=== PATIENT | male | born 1975 | race Caucasian/White ===

== ENCOUNTER 2021-06-06 01:52 | Outpatient (CLI) | payer BC, SELFPAY ==
[2021-06-06 10:42] LABS: Lithium 0.9 mmol/l (0.6-1.2)
== END 2021-06-06 01:53 | disposition home or self-care (01) ==
PROVIDERS: Visit Provider Nurse Practitioner Women's Health
DX: F31.32 Bipolar disorder, current episode depressed, moderate (principal)
CPT/HCPCS: 36415; 80178

== ENCOUNTER 2021-11-29 03:00 | Outpatient (CLI) | payer BC, SELFPAY ==
[2021-11-29 12:35] LABS: Abs Immature Grans 0.06 10^3/uL (0.0-0.06); Absolute Basophil Count 0.03 10^3/uL (0.0-0.2); Absolute Eosinophil Count 0.14 10^3/uL (0.0-0.7); Absolute Lymphocyte Count 1.72 10^3/uL (1.2-3.4); Absolute Monocyte Count 0.53 10^3/uL (0.1-0.8); Absolute Neutrophil Count 4.09 10^3/uL (1.2-6.7); Basophils % 0.5; Eosinophils % 2.1; HCT 39.4 % (40.0-50.0); HGB 13.1 g/dL (13.5-17.5); Immature Grans % 0.9; Lymphocytes % 26.2; MCH 30.5 pg (27.0-33.0); MCHC 33.2 % (32.0-36.0); MCV 92 fL (80-95); MPV 11.7 fL (8.0-11.0); Monocytes % 8.1; Neutrophils % 62.2; Platelet Count 186 10^3/uL (130-400); RDW 13.3 % (11.8-14.1); RDW-SD 44.6 fL; WBC 6.57 10^3/uL (4.4-10.8)
[2021-11-29 12:50] LABS: ALT 43 U/L (16-63); AST 26 U/L (15-37); Albumin 3.9 g/dL (3.4-5.0); Alkaline Phosphatase 66 U/L (46-116); Anion Gap 7.5 mmol/L (3-11); BUN 10 mg/dL (7-18); Bilirubin, Direct 0.1 mg/dL (0.0-0.2); Bilirubin, Total 0.2 mg/dL (0.2-1.0); CO2 28.5 mmol/L (21.0-32.0); Calcium 9.1 mg/dL (8.5-10.1); Chloride 106 mmol/L (98-107); Glucose 133 mg/dL (74-106); Potassium 3.7 mmol/L (3.5-5.1); Sodium 142 mmol/L (136-145); Total Protein 7.2 g/dL (6.4-8.2)
== END 2021-11-29 03:01 | disposition home or self-care (01) ==
LOC: LOS 03:00
PROVIDERS: PCP Family Medicine; Visit Provider Nurse Practitioner Family
DX: R19.7 Diarrhea, unspecified (principal)
CPT/HCPCS: 36415; 80048; 80076; 85025

== ENCOUNTER 2021-11-30 15:12 | Outpatient (REF) | payer BC, SELFPAY ==
[2021-11-30 17:38] LABS: C Diff PCR Negative (Negative)
== END 2021-11-30 15:13 | disposition home or self-care (01) ==
LOC: LBN 15:12
PROVIDERS: PCP Family Medicine; Visit Provider Nurse Practitioner Family
DX: R19.7 Diarrhea, unspecified (principal)
CPT/HCPCS: 87493; 87177

== ENCOUNTER → 2021-12-07 00:56 | Outpatient (CLI) | payer BC, SELFPAY ==
--- OUTSIDE RECORDS SUMMARY | 2021-12-07 00:57 | XMS_ITS | Encounter Summary ---
:1975 Author Organization [facility] Address [address] [place] [address] Care Team Providers Name Role Phone Maximus Cabral MD Primary Care Provider [phone] Encounter Details Date Type Department Care Team Description 12/03/2019 Travel Social History Tobacco Use Types Packs/Day Years Used Date Current Every Day Smoker 0.5 Smokeless Tobacco: Never Used Comments: Vape Alcohol Use Standard Drinks/Week Comments No 0 (1 standard drink = 0.6 oz pure not cu rrently-recovering from alcohol) alcoholism Alcohol Habits Answer Date Recorded How often do you have a drink Not asked containing alcohol? How many drinks containing alcohol Not asked do you have on a typical day when you are drinking? How often do you have six or more Not asked drinks on one occasion? Comment: not currently-recovering from 08/02/2009 alcoholism Sex Assigned at Date Recorded Not on file documented as of this encounter Functional Status Cognitive Status Response Date of Assessment Because of a physical, mental, or emotional condition, do Ye s 08/03/2009 you have serious difficulty concentrating, remembering, or making decisions? (5 years old or older) documented as of this encounter Plan of Treatment Not on filedocumented as of this encounter Visit Diagnoses Not on filedocumented in this encounter Care Teams Principal Developer Relationship Specialty Start Date End Date Maximus Cabral MD PCP - General 07/26/14 documented as of this encounter
--- OUTSIDE RECORDS SUMMARY | 2021-12-07 00:57 | XMS_ITS | Encounter Summary ---
:1975 Author Organization [facility] Address [address] [place] [address] Care Team Providers Name Role Phone Maximus Cabral MD Primary Care Provider [phone] Encounter Details Date Type Department Care Team Description 12/05/2019 Travel Social History Tobacco Use Types Packs/Day [...] Assigned at Date Recorded Not on file COVID-19 Exposure Response Date Recorded In the last month, have you been in contact with No / Unsure 12/05/2019 19:36 EDT someone who was confirmed or suspected to have Coronavirus / COVID-19? documented as of this encounter Functional Status [...] on filedocumented in this encounter Care Teams Circuit Judge Relationship Specialty Start Date End Date Maximus Cabral MD PCP - General 07/26/14 documented as of this encounter
--- OUTSIDE RECORDS SUMMARY | 2021-12-07 00:57 | XMS_ITS | Encounter Summary ---
:1975 Author Organization [facility] Address [address] [place] [address] Care Team Providers Name Role Phone Maximus Cabral MD Primary Care Provider [phone] Encounter Details Date Type Department Care Team Description 08/18/2020 Immunization [facility] [address] [place], [place] [address] Social History Tobacco Use Types Packs/Day Years [...] Diagnoses Not on filedocumented in this encounter Orders Immunization/Injection Count Last Ordered Date First O rdered Date COVID-19 MRNA VACCINE (PFIZER COVID-19) PF 1 08/18 0.3 ML IM (16 YRS+) documented in this encounter Care Teams Gut Puller Relationship Specialty Start Date End Date Maximus Cabral MD PCP - General 07/26/14 documented as of this encounter
--- OUTSIDE RECORDS SUMMARY | 2021-12-07 00:57 | XMS_ITS | Encounter Summary ---
:1975 Author Organization [facility] Address [address] [place] [address] Care Team Providers Name Role Phone Maximus Cabral MD Primary Care Provider [phone] Encounter Details Date Type Department Care Team Description 08/16/2020 Lab Requisition [facility] Maximus Cabral Gene ralized hyperhidrosis; Pathology & MD Anay Cervicalgia Laboratory Medicine [address] [place] [address] [place] [phone] [id number] Social History Tobacco Use Types Packs/Day Years [...] or older) documented as of this encounter Discharge Disposition Disposition Code Departure Means Destination Home or Self Care documented in this encounter Plan of Treatment Not on filedocumented as of this encounter Procedures Procedure Name Priority Date/Time Associated Diagnosis Comme nts SPEP, INCLUDES Today 08/16/2020 15:41 Generalized Results f or this QUANTITATION OF EDT hyperhidrosis procedure are in MONOCLONAL SPIKE Cervicalgia the results PERFORMABLE section. C REACTIVE PROTEIN Routine 08/16/2020 15:41 Generalized Resul ts for this EDT hyperhidrosis procedure are in Cervicalgia the results section. SPEP, INCLUDES Routine 08/16/2020 15:41 Generalized Results f or this QUANTITATION OF EDT hyperhidrosis procedure are in MONOCLONAL SPIKE Cervicalgia the results section. PROTEIN, TOTAL Today 08/16/2020 15:41 Generalized EDT hyperhidrosis Cervicalgia documented in this encounter Results (ABNORMAL) SPEP, INCLUDES QUANTITATION OF MONOCLONAL SPIKE PERFORMABLE (08/16/2020 15:41 EDT) Albumin % 68.9 (H) 55.8 - 66.1 % [facility] Alpha-1 % 3.0 2.9 - 4.9 % [facility] Alpha-2 % 8.5 7.1 - 11.8 % [facility] Beta % 10.8 8.4 - 13.1 % [facility] Gamma % 8.8 (L) 11.1 - 18.8 % [facility] SPEP Comment No apparent [facility] monoclonal protein LABORATORY [facility] seen on serum electrophoresisComm ent: See scanned/supplementa ry report. Total Protein 7.2 6.3 - 8.2 g/dL [facility] Specimen Blood - Venous blood (substance) Narrative This result has an attachment that is no t available. Performing Organization Address City/State/ZIP Code Phon e Number [facility] [address] [place] [address] SERVICES PROTEIN, TOTAL (08/16/2020 15:41 EDT) Specimen Blood - Venous blood (substance) Performing Organization Address City/State/ZIP Code Phon e Number [facility] [address] [place] [address] SERVICES C REACTIVE PROTEIN (08/16/2020 15:41 EDT) Pathologist Sig nature C-Reactive Protein <7.0 <10.0 mg/L [facility] Specimen Blood - Venous blood (substance) Performing Organization Address City/State/ZIP Code Phon e Number [facility] [address] [place] [address] SERVICES documented in this encounter Visit Diagnoses Diagnosis Generalized hyperhidrosis Cervicalgia documented in this encounter Care Teams Sugar Presser Relationship Specialty Start Date End Date Maximus Cabral MD PCP - General 07/26/14 documented as of this encounter
--- OUTSIDE RECORDS SUMMARY | 2021-12-07 00:57 | XMS_ITS | Encounter Summary ---
:1975 Author Organization [facility] Address [address] [place] [address] Care Team Providers Name Role Phone Maximus Cabral MD Primary Care Provider [phone] Encounter Details Date Type Department Care Team Description 12/01/2021 Lab Requisition [facility] Outr Resulting Lab, Pathology & Laboratory Provider [facility] [address] [place], [place] [id number] Social History Tobacco Use Types Packs/Day Years [...] Name Priority Date/Time Associated Diagnosis Comme nts OVA/PARASITE EXAM Routine 11/30/2021 9:40 EDT Res ults for this procedure are i n the results section. documented in this encounter Results OVA/PARASITE EXAM (11/30/2021 9:40 EDT) Pathologist Sig nature Parasite No ova and parasites [facility] seen. LABORATORY SERVICES Specimen Feces - Specimen from rectum (specimen) Narrative [facility] - 12/03/2021 15:04 EDT (If Cryptosporidium, Cyclospora, or Micr osporidium are suspected, specific tests must be requested.) Single negative specimen does not rule out the possibility of a parasitic infection. Performing Organization Address City/State/ZIP Code Phon e Number [facility] [address] [place] [address] SERVICES documented in this encounter Visit Diagnoses Not on filedocumented in this encounter Care Teams Quality Control Inspector Heading Relationship Specialty Start Date End Date Maximus Cabral MD PCP - General 07/26/14 documented as of this encounter
--- OUTSIDE RECORDS SUMMARY | 2021-12-07 00:57 | XMS_ITS | Encounter Summary ---
:[address] [facility] Address [address] [place] [address] Care Team Providers Name Role Phone Maximus Cabral MD Primary Care Provider [phone] Reason for Visit Reason Comments Diarrhea Patient arrives to triage wi th c/o 3 weeks N/V/D. States that he has had watery stool for this period of time and admits to decrease in urination, PO intake, and weight loss. Saw PCP who recommended colonoscopy/endoscopy but is scheduled too far out. I just feel ill. No recent sick contacts, no recent ABX use. Family hx of celiacs. VSS in triage. Encounter Details Date Type Department Care Team Description 12/03/2017 Emergency [facility] ZanzacharyFreddie PA-C [address] [facility], [address] [place] [address] Gastroenteritis (Primary Emergency Department Carmen Ventura PA-C [address] [facility], [address] [place] [address] Dx) - [facility] Emergency, MD Latrice [address] [place] [address] Social History Tobacco Use Types Packs/Day Years [...] on file documented as of this encounter Last Filed Vital Signs Vital Sign Reading Time Taken Comments Blood Pressure 113/73 12/03/2017 2324 EDT Pulse 88 12/03/2017 2324 EDT Temperature 36.1 ??C (97 ??F) 12/03/2017 1524 EDT Respiratory Rate 19 12/03/2017 2324 EDT Oxygen Saturation 99% 12/03/2017 2324 EDT Inhaled Oxygen Concentration - - Weight 87.1 kg (192 lb) 12/03/2017 1524 EDT Height 180.3 cm (5' 11) 12/03/2017 1524 EDT Body Mass Index 26.78 12/03/2017 1524 EDT documented in this encounter Functional Status Cognitive Status Response Date of Assessment Because of a physical, mental, or emotional condition, do Ye s 08/03/2009 you have serious difficulty concentrating, remembering, or making decisions? (5 years old or older) documented as of this encounter Discharge Diagnoses Diagnosis K52.9 Noninfective gastroenteritis and c olitis, unspecified-K52.9[ICD-10-CM] R10.33 Periumbilical pain-R10.33[ICD-10- CM] R19.7 Diarrhea, unspecified-R19.7[ICD-10 -CM] R10.813 Right lower quadrant abdominal t enderness-R10.813[ICD-10-CM] R10.811 Right upper quadrant abdominal t enderness-R10.811[ICD-10-CM] R11.10 Vomiting, unspecified-R11.10[ICD- 10-CM] R42 Dizziness and giddiness-R42[ICD-10-C M] R53.83 Other fatigue-R53.83[ICD-10-CM] R51 Headache-R51[ICD-10-CM] F31.9 Bipolar disorder, unspecified-F31. 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 While you were in the ER you had labs that were all normal and reassuring. You also had a CT scan of your abdomen which had nonspecific findings of lymph nodes around your gut. These are nonspecific, may be inflammatory in nature, but nothing that indicates that you would be better off admitted to the hospital or would need surgical intervention at this time. I would recommend you to stick to clear liquid diet, bland diet as tolerated, and start taking an [id number] probiotic. Follow up with your PCP within a week, this may require referral to specialist such as a GI doctor. Come back to the ER if any new or concerning symptoms, or if you are not able to tolerate fluids, have significant decrease in urine output, or develop new/severe abdominal pain, or fevers. documented in this encounter Medications at Time of Discharge Medication Sig Dispensed Refills Start Date End Date azithromycin (ZITHROMAX) 250 Take 1-2 Tabs by 6 Tab 0 0 09/13/2016 mg tablet mouth SEE ADMIN INSTRUCTIONS. lithium carbonate 300 mg Take 1,200 mg by 0 tablet mouth daily. oxazepam (SERAX) 15 mg Take 15 mg by mouth 0 capsule 3 times daily. phenazopyridine (PYRIDIUM) Take 1 Tab by mouth 20 Tab 0 09/13/2016 200 mg tablet 3 times daily as needed for Pain. QUEtiapine (SEROQUEL) 100 mg Take 100 mg by 0 tablet mouth at bedtime. sertraline (ZOLOFT) 50 mg Take 150 mg by 0 tablet mouth daily. documented as of this encounter Discharge Disposition Disposition Code Departure Means Destination Home or Self Care Walk-out Home documented in this encounter ED Notes Carmen Dhillon PA-C - 12/03/20172038 EDT I, Salima Soriano, am scribing for Carmen Dhillon PA-C while he/she is personally performing the service. Salima Soriano 12/03/2017 20:39 Delroy Khan is a 42 y.o. male who presents to the ED with three weeks of acute onset diarrhea and vomiting, accompanied by lightheadedness and mental fogginess. Care and work-up prior to sign out includes labs and CT abdomen, pelvis with contrast orderd. I assumed care of patient from Edna Mclean with stool culture and CT abdomen/pelvis results pending. After I assumed care the patient had the following: Patient had a CT abdomen and pelvis with contrast, which was significant for innumerable nonenlargedmesenteric lymph nodes with subtle surrounding fat stranding are nonspecific but can be seen in setting of mesenteritis. There are otherwise no emergent findings in the abdomen and pelvis. Patient had CT that was obtained, reviewed, and interpreted by myself and discussed with a radiologist. Please see radiology report for further details. Reassuring lab and imaging results were shared with the patient who was advised that there was nothing emergent seen on his imaging. Patient was sent home with a stool collection kit to bring a stool sample back to the outpatient lab for further testing. Patient was advised to try some diet adjustmentand to follow up with his PCP in the next 1-2 weeks about his visit here and to consider speaking about getting a referral to see a normalizer. Patient was comfortable with plans to discharge and return home. This documentation is recorded by Salima Soriano acting as Scribe under the direction and presence of Carmen Dhillon PA-C. Carmen Dhillon PA-C: I personally performed the services recorded by the scribe in my presence. Iconfirm the scribe's documentation has been reviewed by me to accurately and completely record my work, treatment, procedures, and medical decision making. Dr. Del Rosario was available for supervision. Donovan Kline RN - 12/03/20171926 EDT Patient ambulatory gait steady and even to the bathroom, unable to provide a stool sample Edna Mclean PA - 12/03/2017 1823 EDT DOS: 12/03/2017 Chief Complaint Patient presents with ??? Diarrhea Patient arrives to triage with c/o 3 weeks N/V/D. States that he has had watery stool for this period of time and admits to decrease in urination, PO intake, and weight loss. Saw PCP who recommended colonoscopy/endoscopy but is scheduled too far out. I just feel ill. No recent sick contacts, no recent ABX use. Family hx of celiacs. VSS in triage. HPI The patient is a 42 y.o. male who presents today with Diarrhea (Patient arrives to triage with c/o 3weeks N/V/D. States that he has had watery stool for this period of time and admits to decrease in urination, PO intake, and weight loss. Saw PCP who recommended colonoscopy/endoscopy but is scheduledtoo far out. I just feel ill. No recent sick contacts, no recent ABX use. Family hx of celiacs. VSS in triage. ) HPI Mr. Khan is a 42 yo male accompanied by his teenage daughter with history significant for depression and bi-polar presenting to the ED for a subsequent encounter for acute onset diarrhea and vomiting x 3 weeks. He notes that he has episodes of explosive, watery diarrhea 10 times a day for the last three weeks. He has had new onset sensation of lightheadedness feeling mentally foggy. He notes 2 episodes of fecal incontinence, fatigue, the sensation of hsi body being heavy, chills, GARRIDO x 3 weeks(sharp, short pains). He also notes vomiting on a nightly basis. He said episodes start anywhere between 10pm and 2-3 am in the morning. He has associated excessive salvation in which he states that he is ac taully drooling prior to onset of vomiting. He states that episodes typically last around 20 minutes, have no association with timing of meals, are accompanied with stabbing abdominal pain and cramping. He will vomit regardless of PO intake and also experiences dry heaves. He endorses the feeling of both food and liquid feeling stuck in his chest. Whenever he eats of drinks, he has the sensation that it sits behind his breastbone for 20 minutes or so and then travels to his stomach where it feels stuck again for a similar amount of tie. He notes that he has a constant cramping pain in his inferior will-umbilical area that often generates stabbing radiating pain the the rest of his stomach, primarily to his right quadrant. He notes that he experiences extreme pain in his central abdomen when bending over while clothed with a belt on. He notes that his diarrhea is typically very watery, but occasionally has small floating pieces. He denies recent travel or consumption of non-potable water. He denies fever, CP, SOB, dyspnea, TATUM, myalgias, arthralgias, numbness or tingling in his extremities, visual changes, recent fall or trauma, rash, tick bites, animal exposure outside of his pet birds. Review of Systems Review of Systems See HPI The patient's past medical, family and social history was reviewed and updated as needed. No Known Allergies Vital Signs Temp: 36.1 ??C (97 ??F) Temp src: Temporal Pulse: 88 Heart Rate: 86 BPM Resp: 19 SpO2: 99 % BP: 113/73 BP MAP: 87 mm Hg BP Device: BP Machine Patient Position: Sitting BP Cuff Location: Left arm Gonzalez Agitation Sedation Scale: 0 O2 Device: None (Room air) Physical Exam Constitutional: He is oriented to person, place, and time. He appears well- developed and well-nourished. No distress (appears somewhat pale and fatigued). HENT: Head: Normocephalic and atraumatic. Neck: Normal range of motion. Neck supple. Cardiovascular: Normal rate, regular rhythm and normal heart sounds. Pulmonary/Chest: Effort normal and breath sounds normal. No respiratory distress. Abdominal: Soft. Bowel sounds are normal. He exhibits no distension. There is tenderness (in both RUQ and RLQ, -castano's ). Musculoskeletal: Normal range of motion. Neurological: He is alert and oriented to person, place, and time. He has normal reflexes. Skin: Skin is warm and dry. No erythema. Psychiatric: He has a normal mood and affect. His behavior is normal. Judgment and thought content normal. RESULTS EKG orders: None Radiology orders: CT ABDOMEN, PELVIS W CONTRAST Ordered, pending results ED Lab Results Labs Reviewed COMPREHENSIVE METABOLIC PANEL (CMP) - Abnormal Result Value Status Potassium 4.2 Final Sodium 142 Final Chloride 107 Final CO2 27 Final Total Alkaline Phosphatase 56 Final Bilirubin, Total <0.5 Final AST 22 Final ALT 27 Final Albumin 4.8 Final Total Protein 7.2 Final Creatinine 0.77 Final GFR, Calculated 114 Final BUN 7 (*) Final Calcium 9.7 Final Calculated Calcium 9.1 Final Glucose, Serum 91 Final Fasting? Unknown Final COMPLETE BLOOD COUNT AND DIFFERENTIAL - Abnormal WBC 5.77 Final RBC 4.52 Final Hemoglobin 13.4 (*) Final HCT 41.0 Final MCV 91 Final MCH 29.6 Final MCHC 32.7 (*) Final RDW-CV 13.0 Final RDW-SD 43.2 Final PLT 218 Final MPV 11.6 Final Neutrophils 63.8 Final Lymphocytes 26.0 Final Monocytes 7.1 Final Eosinophils 2.3 Final Basophils 0.5 Final Immature Grans 0.3 Final ABS Neutrophils 3.68 Final ABS Lymphs 1.50 Final ABS Monocytes 0.41 Final ABS Eosinophils 0.13 Final ABS Basophils 0.03 Final ABS Immature Grans 0.02 Final Type of Diff: Automated Final POCT URINE DIPSTICK, CLINITEK - Abnormal Color YELLOW Final Clarity, UA Clear Final Glucose Neg Final Bilirubin Neg Final Ketones Neg Final Specific [place] 1.010 Final Blood Neg Final pH 5.5 Final Protein Neg Final Urobilinogen 0.2 Final Nitrite Neg Final Leuk Esterase Trace (*) Final Tech ID [id number] Final FECAL BACTERIAL PATHOGENS BY PCR Salmonella PCR No Salmonella spp. DNA detected Final Shigella Final Value: No Shigella spp. or Enteroinvasive E.coli DNA detected. Campylobacter PCR Final Value: No Campylobacter spp. (jejuni or coli) DNA detected. Shiga Toxin PCR No Shiga toxin producing genes detected. Final C. DIFFICILE PCR Result Negative Final LIPASE Lipase 157 Final ED/URGENT CARE ADD-ON Tests to be added LITHIUM Final Number for problems [id number] (ED) Final LITHIUM [place] 0.8 Final Relevant Data Procedures ED COURSE A medical screening exam was performed. 1L IV normal saline ordered due to patient stated decreased PO intake and possible dehydration. 15 mg Ketorolac IV ordered for abdominal pain due to efficacy on last admission. CBC, CMP ordered due to possibility of infection and electrolyte imbalance from excessive fluid loss due to dehydration an diarrhea. His labs were reassuring that he was not having altered electrolytes due to excessive fluid loss from diarrhea and emesis. Stool cultures ordered to further clarify source of abdominal pain and distress. Patient was having difficulty producing stool. Noted his pain was well controlled with the Ketorolac and only had mild discomfort. Consulted with Dr Smith regarding next steps in treatment plans, pending results of stool cultures. He agreed that a CT abd/pelvis due to the length of Mr. Khan's illness and location of pain would be warranted pending discussion with the patient and Mr. Khan's wishes. I discussed the pros and cons of pursuing further imaging vs waiting on stool culture results. Mr. Khan decided to pursue the CT abd/pelvis. I ordered the imaging and then care of patient was transitioned to Luana Ventura PA-C at end of shift, pending stool sample collection and CTabd/pelvis results. ASSESSMENT AND PLAN Final diagnoses: Gastroenteritis PCP: Maximus Cabral MDM Number of Diagnoses or Management Options Diagnosis management comments: Gastroenteritis, Eusebio Del Rosario 12/08/2017 11:54 No flowsheet data found. Yany murphy - 12/03/2017 1820 EDT Blood drawn via saline lock per protocol, tiger and purple tube(s) sent to lab per order. Keiry Hanson RN - 12/03/2017 1601 EDT Pt not discharged and is in waiting room. documented in this encounter Plan of Treatment Not on filedocumented as of this encounter Procedures Procedure Name Priority Date/Time Associated Comments Diagnosis FECAL BACTERIAL Routine 12/04/2017 6:45 Results f or this PATHOGENS BY PCR EDT procedure a re in the results section. C. DIFFICILE PCR Routine 12/04/2017 6:45 Results for this EDT procedure are i n the results section. CT ABDOMEN, PELVIS W STAT 12/03/2017 21:06 Res ults for this CONTRAST EDT procedure are i n the results section. ED/URGENT CARE ADD-ON STAT 12/03/2017 19:10 Re sults for this EDT procedure are i n the results section. COMPLETE BLOOD COUNT STAT 12/03/2017 18:13 Res ults for this AND DIFFERENTIAL EDT procedure a re in the results section. LIPASE STAT 12/03/2017 18:13 Results for this EDT procedure are i n the results section. LITHIUM Routine 12/03/2017 18:13 Results for this EDT procedure are i n the results section. COMPREHENSIVE STAT 12/03/2017 18:13 Results fo r this METABOLIC PANEL (CMP) EDT proced ure are in the results section. POCT URINE DIPSTICK, STAT 12/03/2017 16:00 Res ults for this CLINITEK EDT procedure are i n the results section. documented in this encounter Results C. DIFFICILE PCR (12/04/2017 6:45 EDT) Pathologist Sig nature Result Negative [facility] Specimen Stool specimen (specimen) - Feces Performing Organization Address City/[facility] Phon e Number [facility] [address] [place] [address] SERVICES FECAL BACTERIAL PATHOGENS BY PCR (12/04/2017 6:45 EDT) Salmonella PCR No Salmonella spp. DNA [facility] detected [facility] Shigella No Shigella spp. or [facility] Enteroinvasive E.coli [facility] DNA detected. SERVICES Campylobacter PCR No Campylobacter spp. [facility] (jejuni or coli) DNA [facility] detected. SERVICES Shiga Toxin PCR No Shiga toxin [facility] producing genes [facility] detected. SERVICES Specimen Feces Performing Organization Address City/[facility] Phon e Number [facility] [address] [place] [address] ABDOMEN, PELVIS W CONTRAST (12/03/2017 21:06 EDT) Anatomical Region Laterality Modality Other Specimen Narrative [facility] - 12/04/2017 12:[address] ABDOMEN, PELVIS W CONTRAST ??12/03/2017 9:06 PM Signs and Symptoms/Comments: ?? Right quadrant Abd pain, N/V/D x 3wks Technique: CT of the abdomen and pelvis was perform ed following the administration intravenous contrast; cor onal and sagittal multiplanar reconstructions generated. Comparison: Lumbar spine MRI March 28, 2016 Findings: Lower chest: Trace atelectasis in the claudia ng bases. No significant abnormality of the heart. Hepatobiliary: No liver lesion. The gall bladder is contracted.. No bile duct dilatation. Spleen, pancreas, adrenal glands: No sig nificant abnormality. No pancreatic ductal dilatation, no peripan creatic fat stranding. Kidneys, ureters, bladder: Incidental ti ny right renal cortical cyst, axial 125. No hydronephrosis or ne phrolithiasis. The ureters are within normal limits. The bladder is decompressed. Apparent bladder wall thickening is likely due to decompression. Prostate, seminal vesicles: Numerous kevon cifications are seen in the prostate. No abnormality of the seminal vesicles. Bowel: No bowel wall thickening or obstr uction. A normal appendix is seen in the right lower quadrant. No abn ormal bowel enhancement. No significant diverticular disease. Peritoneal cavity / Subperitoneal space: No free fluid. No free air. Lymphovascular: Mild diffuse atheroscler otic calcification is noted. Numerous prominent but not pathologicall y enlarged lymph nodes are seen in the terminal mesentery. There is a small amount of surrounding haziness in the mesenteric f at, with well demarcated margin. Abdominal wall: There is a tiny fat-cont aining umbilical hernia and tiny bilateral fat-containing inguinal h ernias. Musculoskeletal: Mild degenerative chun es are present in the spine and hips. 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 Degenerative changes are se en along the pseudarthrosis. Impression: 1. ??No acute pathology abdomen pelvis. 2. ??Mild nonspecific mesenteritis. 3. ??Contracted/postprandial gallbladder . I have personally reviewed the images an d the above interpretation and agree with the findings. Procedure Note Keyshawn Rankin MD - 12/04/2017 CT ABDOMEN, PELVIS W CONTRAST 12/03/2017 9:06 PM Signs and Symptoms/Comments: Right quadrant Abd pain, N/V/D x 3wks Technique: CT of the abdomen and pelvis was perform ed following the administration intravenous contrast; cor onal and sagittal multiplanar reconstructions generated. Comparison: Lumbar spine MRI March 28, 2016 Findings: Lower chest: Trace atelectasis in the claudia ng bases. No significant abnormality of the heart. Hepatobiliary: No liver lesion. The gall bladder is contracted.. No bile duct dilatation. Spleen, pancreas, adrenal glands: No sig nificant abnormality. No pancreatic ductal dilatation, no peripan creatic fat stranding. Kidneys, ureters, bladder: Incidental ti ny right renal cortical cyst, axial 125. No hydronephrosis or ne phrolithiasis. The ureters are within normal limits. The bladder is decompressed. Apparent bladder wall thickening is likely due to decompression. Prostate, seminal vesicles: Numerous kevon cifications are seen in the prostate. No abnormality of the seminal vesicles. Bowel: No bowel wall thickening or obstr uction. A normal appendix is seen in the right lower quadrant. No abn ormal bowel enhancement. No significant diverticular disease. Peritoneal cavity / Subperitoneal space: No free fluid. No free air. Lymphovascular: Mild diffuse atheroscler otic calcification is noted. Numerous prominent but not pathologicall y enlarged lymph nodes are seen in the terminal mesentery. There is a small amount of surrounding haziness in the mesenteric f at, with well demarcated margin. Abdominal wall: There is a tiny fat-cont aining umbilical hernia and tiny bilateral fat-containing inguinal h ernias. Musculoskeletal: Mild degenerative chun es are present in the spine and hips. 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 Degenerative changes are se en along the pseudarthrosis. Impression: 1. No acute pathology abdomen pelvis. 2. Mild nonspecific mesenteritis. 3. Contracted/postprandial gallbladder. I have personally reviewed the images an d the above interpretation and agree with the findings. Performing Organization Address City/State/ZIP Code Phon e Number [facility] ED/URGENT CARE ADD-ON (12/03/2017 19:10 EDT) Pathologist Sig nature Tests to be added LITHIUM [facility] Number for problems [id number] (ED) [facility] Specimen Other Performing Organization Address City/State/ZIP Code Phon e Number [facility] [address] [place] [address] SERVICES LITHIUM (12/03/2017 18:13 EDT) Pathologist Sig nature [place] 0.8 0.6 - 1.2 mEq/L [facility] SERVICES Specimen Blood Performing Organization Address City/[facility]/ZIP Code Phon e Number [facility] [address] [place] [address] SERVICES (ABNORMAL) COMPLETE BLOOD COUNT AND DIFFERENTIAL (12/03/2017 18:13 EDT) Pathologist Sig nature WBC 5.77 4.0 - 10.4 [facility] K[facility] LABORATORY SERVICES RBC 4.52 4.36 - 5.78 [facility] M[facility] LABORATORY SERVICES Hemoglobin 13.4 (L) 13.8 - 17.3 [facility] gm/dl LABORATORY SERVICES HCT 41.0 39.5 - 50.2 % [facility] MCV 91 81 - 95 fl [facility] MCH 29.6 27.6 - 33.0 pg [facility] MCHC 32.7 (L) 32.8 - 36.4 [facility] gm/dl LABORATORY SERVICES RDW-CV 13.0 <14.2 % [facility] RDW-SD 43.2 <46.0 fl [facility] PLT 218 141 - 377 K/[facility] LABORATORY SERVICES MPV 11.6 9.5 - 12.7 fl [facility] Neutrophils 63.8 % [facility] Lymphocytes 26.0 % [facility] Monocytes 7.1 % [facility] Eosinophils 2.3 % [facility] Basophils 0.5 % [facility] Immature Grans 0.3 % [facility] ABS Neutrophils 3.68 2.20 - 8.85 [facility] K[facility] LABORATORY SERVICES ABS Lymphs 1.50 1.09 - 3.30 [facility] LABORATORY SERVICES ABS Monocytes 0.41 0.1 - 0.8 /[facility] LABORATORY SERVICES ABS Eosinophils 0.13 0.03 - 0.61 [facility] LABORATORY SERVICES ABS Basophils 0.03 0.01 - 0.11 [facility] LABORATORY SERVICES ABS Immature Grans 0.02 0 - 0.06 [facility] LABORATORY SERVICES Type of Diff: Automated [facility] Specimen Blood specimen (specimen) - Blood Performing Organization Address City/[facility]/ZIP Code Phon e Number [facility] [address] [place] [address] SERVICES LIPASE (12/03/2017 18:13 EDT) Pathologist Sig nature Lipase 157 <251 U/L [facility] Specimen Blood specimen (specimen) - Blood Performing Organization Address City/State/ZIP Code Phon e Number [facility] [facility] [address] [place] [address] SERVICES (ABNORMAL) COMPREHENSIVE METABOLIC PANEL (CMP) (12/03/2017 18:13 EDT) Potassium 4.2 3.5 - 5.0 [facility] MEDICAL mEq/L [facility] Sodium 142 136 - 145 [facility] mEq/L [facility] Chloride 107 96 - 110 [facility] mEq/L [facility] CO2 27 22 - 32 mEq/L [facility] Total Alkaline 56 38 - 126 U/L [facility] Phosphatase [facility] Bilirubin, Total <0.5 <1.4 mg/dl [facility] AST 22 15 - 46 U/L [facility] ALT 27 21 - 72 U/L [facility] Albumin 4.8 3.4 - 4.9 [facility] MEDICAL g/dl [facility] Total Protein 7.2 6.3 - 8.2 [facility] g/dl [facility] Creatinine 0.77 0.66 - 1.25 [facility] mg/dl [facility] GFR, Calculated 114 >60 [facility] Comment: ml/min/1.73m2 [facility] eGFR calculated using CKD-EPI equation for SERVICES non Americans. Multiply eGFR by 1.16 for Americans. BUN 7 (L) 10 - 26 mg/dl [facility] Calcium 9.7 8.5 - 10.5 [facility] mg/dl [facility] Calculated Calcium 9.1 8.5 - 10.5 [facility] mg/dl [facility] Glucose, Serum 91 70 - 100 [facility] mg/dl [facility] Fasting? Unknown [facility] Specimen Blood specimen (specimen) - Blood Performing Organization Address City/State/ZIP Code Phon e Number [facility] [address] [place] [address] SERVICES (ABNORMAL) POCT URINE DIPSTICK, CLINITEK (12/03/2017 16:00 EDT) Color YELLOW [facility] SERVICES Clarity, UA Clear [facility] Glucose Neg Neg [facility] Bilirubin Neg Neg [facility] Ketones Neg Neg [facility] SERVICES Specific [place] 1.010 1.001 - 1.035 [facility] SERVICES Blood Neg Neg [facility] SERVICES pH 5.5 4.6 - 8.0 [facility] SERVICES Protein Neg Neg [facility] SERVICES Urobilinogen 0.2 0.2 - 1.0 [facility] E.U./dl LABORATORY SERVICES Nitrite Neg Neg [facility] SERVICES Leuk Esterase Trace (A) Neg [facility] microbiology analyst ID [id number]: [facility] Test performed at LABORATORY Emergency SERVICES Department Specimen Urine (substance) - Urine Performing Organization Address City/State/ZIP Code Phon e Number [facility] [address] [place] [address] SERVICES documented in this encounter Visit Diagnoses Diagnosis Gastroenteritis - Primary Other and unspecified noninfectious rodri roenteritis and colitis documented in this encounter Administered Medications Inactive Administered Medications - up to 3 most recent administrations Medication Order MAR Action Action Date Dose Rate Site ketOROLAC (TORADOL) injection 15 mg Given 12/03/2017 18:22 EDT 15 mg 15 mg, intravenous, NOW X1, 1 dose, On Fri12/03/17 at 1815, STAT sodium chloride 0.9 % BOLUS 1,000 mL New Bag 12/03/2017 18:20 EDT 1,000 mL 1,000 mL, intravenous, NOW X1, 1 dose, On Fri12/03/17 at 1815, STAT documented in this encounter Active and Recently Administered Medications Times are shown in EDT. Scheduled Medication Order 12/01/2017 12/02/2017 12/03/2017 ketOROLAC (TORADOL) injection 15 mg (COMPLETED) 1821 (Given - Provider: Donovan Dyson RN) 15 mg, intravenous, NOW X1, 1 dose, Fri12/03/17 at 1815, STAT sodium chloride 0.9 % BOLUS 1,000 mL (COMPLETED) 182 (New Bag - Provider: Yany Hubbard)192 (Completed - Provider: Donovan Dyson RN) 1,000 mL, intravenous, NOW X1, 1 dose, Fri12/03/17 at 1815, STAT documented in this encounter Orders Nursing Count Last Ordered Date First Ordered Date INSERT PERIPHERAL IV 1 12/03/2017 documented in this encounter Care Teams Block Chopper Hand Relationship Specialty Start Date End Date Maximus Cabral MD PCP - General 07/26/14 documented as of this encounter
--- OUTSIDE RECORDS SUMMARY | 2021-12-07 00:57 | XMS_ITS | Encounter Summary ---
:1975 Author Organization [facility] Address [address] [place] [address] Care Team Providers Name Role Phone Maximus Cabral MD Primary Care Provider [phone] Encounter Details Date Type Department Care Team Description 09/08/2020 Immunization [facility] - T[facility]anie Mobil e Testing [address] [place], [place] [address] Social History Tobacco Use Types Packs/Day Years [...] COVID-19 MRNA VACCINE (PFIZER COVID-19) PF 1 09/08 0.3 ML IM (16 YRS+) documented in this encounter Care Teams Publicity Director Relationship Specialty Start Date End Date Maximus Cabral MD PCP - General 07/26/14 documented as of this encounter
--- OUTSIDE RECORDS SUMMARY | 2021-12-07 00:57 | XMS_ITS | Encounter Summary ---
:1975 Author Organization [facility] Address [address] [place] [address] Care Team Providers Name Role Phone Maximus Cabral MD Primary Care Provider [phone] Encounter Details Date Type Department Care Team Description 01/28/2018 Hospital Encounter [facility] - [facility] [place] Echevarria R, [facility] [id number] [place] [address] [phone] (Wo rk) Social History Tobacco Use Types Packs/Day Years [...] as of this encounter Discharge Diagnoses Diagnosis Z79.899 Other retirement (current) drug t herapy-Z79.899[ICD-10-CM] Z51.81 Encounter for therapeutic drug le ember monitoring-Z51.81[ICD-10-CM] documented in this encounter Medications at Time [...] on filedocumented in this encounter Care Teams Head Athletic Trainer Relationship Specialty Start Date End Date Maximus Cabral MD PCP - General 07/26/14 documented as of this encounter
--- OUTSIDE RECORDS SUMMARY | 2021-12-07 00:57 | XMS_ITS | Encounter Summary ---
:1975 Author Organization [facility] Address [address] [place] [address] Care Team Providers Name Role Phone Maximus Cabral MD Primary Care Provider [phone] Encounter Details Date Type Department Care Team Description 07/04/2020 Lab Requisition [facility] Kimberly Hess disorder, Pathology & Hina Sneed APRN unspecified Laboratory Medicine [address] [place] [address] [address] [place] [address] [place] [id number] Social History Tobacco Use Types Packs/Day Years [...] Name Priority Date/Time Associated Diagnosis Comme nts LITHIUM Routine 07/04/2020 12:40 EDT Bipolar disorder, Re sults for this unspecified (HCC-CMS) proced ure are in the results section. documented in this encounter Results LITHIUM (07/04/2020 12:40 EDT) [address] 1.3 See Note mEq/L [facility] Comment: LABORATORY SERVICES 18 years and older: Therapeutic range: 0.6 - 1.2 mEq/L Potentially toxic: >1.5 mEq/L Therapeutic range not established for individuals <18 years old. Specimen Blood - Venous blood (substance) Performing Organization Address City/State/ZIP Code Phon e Number [facility] [address] [place] [address] SERVICES documented in this encounter Visit Diagnoses Diagnosis Bipolar disorder, unspecified (HCC-CMS) ([facility]) Bipolar disorder, unspecified documented in this encounter Care Teams Manager Sign Relationship Specialty Start Date End Date Maximus Cabral MD PCP - General 07/26/14 documented as of this encounter
--- OUTSIDE RECORDS SUMMARY | 2021-12-07 00:57 | XMS_ITS | Encounter Summary ---
:1975 Author Organization [facility] Address [address] [place] [address] Care Team Providers Name Role Phone Maximus Cabral MD Primary Care Provider [phone] Encounter Details Date Type Department Care Team Description 12/04/2017 Phlebotomy Only [facility] - Maximus Cabral [facility] [address] [address] [address] [place] [id number] (Wo rk) Social History Tobacco Use Types [...] on filedocumented in this encounter Care Teams Technical Fellow Relationship Specialty Start Date End Date Maximus Cabral MD PCP - General 07/26/14 documented as of this encounter
--- OUTSIDE RECORDS SUMMARY | 2021-12-07 00:57 | XMS_ITS | Encounter Summary ---
:1975 Author Organization [facility] Address [address] [place] [address] Care Team Providers Name Role Phone Maximus Cabral MD Primary Care Provider [phone] Reason for Visit Reason Comments Suicidal Reports SI for about 1 wk an d states I just can't take it anymore. Plans to overdose. Denies self elaine m. Depressed affect; poor eye contact. Seen here for same about 10 yrs ago. A rrvies with supportive girlfriend. Encounter Details Date Type Department Care Team Description 12/05/2019 - Emergency [facility] Eve Collins PA-C [address] [place] [address] [address] [place] [address] Depression, unspecified depression type (Primary Dx); 12/06/2019 Emergency Department Domo Payne PA-C [address] [place] [address] [place] [id number] Suicidal ideation - [facility] Ada Sarmiento PA-C [address] [facility], [facility] 1 [place] [id number] [place] [id number] Social History Tobacco Use Types Packs/Day Years [...] / COVID-19? documented as of this encounter Last Filed Vital Signs Vital Sign Reading Time Taken Comments Blood Pressure 105/73 12/06/2019 0900 EDT Pulse 80 12/06/2019 09 EDT Temperature 36.1 ??C (97 ??F) 12/06/2019 09 EDT Respiratory Rate 18 12/05/20191935 EDT Oxygen Saturation 98% 12/06/2019 09 EDT Inhaled Oxygen Concentration - - Weight 83.5 kg (184 lb) 12/05/20191935 EDT Height 180.3 cm (5' 11) 12/05/2019 193 EDT Body Mass Index 25.66 12/05/2019 193 EDT documented in this encounter Functional Status Cognitive Status Response Date of Assessment Because of a physical, mental, or emotional condition, do Ye s 08/03/2009 you have serious difficulty concentrating, remembering, or making decisions? (5 years old or older) documented as of this encounter Medications at Time of Discharge Medication Sig Dispensed Refills Start Date End Date azithromycin (ZITHROMAX) Take 1-2 Tabs by 6 Tab 0 09/13 250 mg tablet mouth SEE ADMIN INSTRUCTIONS. latanoprost (XALATAN) 0.005 Place 1 Drop into 0 % ophthalmic solution both eyes daily. lithium carbonate 300 mg Take 1,200 mg by 0 tablet mouth daily. lurasidone (LATUDA) 60 mg Take 60 mg by 0 tablet mouth daily. oxazepam (SERAX) 15 mg Take 15 mg by 0 capsule mouth 3 times daily. phenazopyridine (PYRIDIUM) Take 1 Tab by 20 Tab 0 2016 200 mg tablet mouth 3 times daily as needed for Pain. QUEtiapine (SEROQUEL) 100 Take 50 mg by 0 mg tablet mouth daily with lunch. QUEtiapine (SEROQUEL) 100 Take 100 mg by 0 mg tablet mouth at bedtime. sertraline (ZOLOFT) 50 mg Take 150 mg by 0 tablet mouth daily. lurasidone (LATUDA) 20 mg Take 1 Tab by 7 Tab 0 020 12/13/2019 tablet mouth at bedtime for 7 days. Total of 80mg qhs documented as of this encounter Ordered Prescriptions Prescription Sig Dispensed Refills Start Date End Date lurasidone (LATUDA) 20 mg Take 1 Tab by mouth 7 Tab 0 0 12/06/2019 12/13/2019 tablet at bedtime for 7 days. Total of 80mg qhs documented in this encounter Discharge Disposition Disposition Code Departure Means Destination Home or Self [facility] documented in this encounter ED Notes Ada Sarmiento PA-C - 12/06/2019 1352 EDT Received signout from RINA Payne at 6 AM. Patient seen by first call and psychiatry and cleared for discharge. Provided prescription for Latuda 20 mg nightly, to be taken in addition to a 60 mg nightly for total of 80 mg nightly for 1 week and has outpatient provider set up. Genny Alcazar RN - 12/06/2019 1349 EDT Pt verbalized understanding Of discharge instructions, all belongings returned to pt. Genny Alcazar RN - 12/06/2019 1319 EDT Pt has declined to go to [facility]. Dr Perez has spoken with pt and is aware. Elizabeth Marte - 12/06/2019 1040 EDT 12 Lead EKG Performed by ELIZABETH ALLEN and shown to Ada Sarmiento PA-C. Eleonora arita - 12/06/2019 1030 EDT Blood drawn via butterfly needle per protocol, tiger tube(s) sent to lab per order. Genny Hirsch, KATELYN - 12/06/2019 0945 EDT Pt is cooperative, stated he may feel a little better today. Denies any s/i at this time.pt statedhe does not take Seroquel until noon. Yesica Mondragon RN - 12/05/20192027 EDT Pt sitting comfortably on stretcher w girlfriend at his side. Pt has a flat affect but able to articulate his feelings without difficulty. Pt states he has 'a lot of medications at home that he would take kill himself by way of OD'. Pt states he 'does not feel anymore; has no feelings'. Pt his lack ofdesire to live has increased greatly since Friday. Pt states he 'wants to kill himself but can't do it'. Pt could not specify exactly what caused his sudden SI but likely will open up when girlfriend is asked to leave the room. Girlfriend appears to be very supportive although is quiet during assessment process. Girlfriend is not living w patient at this time but sounds as though this may be a temporary thing. Pt lives w 17 year old daughter who is typically not home. Pt states he does not feel safein his house because of his temptation to OD. Yanelis Jimenez PA- C - 12/05/2019 194 EDT DOS: 12/05/2019 Chief Complaint Patient presents with ??? Suicidal Reports SI for about 1 wk and states I just can't take it anymore. Plans to overdose. Denies selfharm. Depressed affect; poor eye contact. Seen here for same about 10 yrs ago. Arrvies with supportive girlfriend. HPI The patient is a 44 y.o. male who presents today with Suicidal (Reports SI for about 1 wk and statesI just can't take it anymore. Plans to overdose. Denies self harm. Depressed affect; poor eye contact. Seen here for same about 10 yrs ago. Arrvies with supportive girlfriend. ) HPI 44-year-old male presenting today with his partner. Male reporting suicidal ideations. Plan is for overdose. Denies self-harm at this time. Has a depressed affect with poor eye contact. Denies any medical complaints today. Review of Systems Review of Systems Constitutional: Negative for chills and diaphoresis. HENT: Negative for facial swelling and voice change. Eyes: Negative for redness. Respiratory: Negative for choking, shortness of breath and wheezing. Cardiovascular: Negative for chest pain and palpitations. Gastrointestinal: Negative for abdominal pain. Musculoskeletal: Negative for back pain. Skin: Negative for color change and pallor. Neurological: Negative for facial asymmetry and speech difficulty. Psychiatric/Behavioral: Positive for suicidal ideas. Negative for agitation and confusion. The patient is not nervous/anxious. The patient???s past medical, family, and social history was reviewed and updated as needed. No Known Allergies Vital Signs Temp: 36.9 ??C (98.4 ??F) Temp src: Temporal Pulse: 87 Resp: 18 SpO2: 99 % BP: (!) 145/72 BP Device: BP Machine BP Patient Position: Sitting BP Cuff Location: Right arm O2 Device: None (Room air) Physical Exam Constitutional: General: He is not in acute distress. Appearance: He is well-developed. He is not diaphoretic. HENT: Head: Normocephalic and atraumatic. Neck: Musculoskeletal: Normal range of motion and neck supple. Cardiovascular: Rate and Rhythm: Normal rate and regular rhythm. Pulmonary: Effort: Pulmonary effort is normal. Skin: General: Skin is warm and dry. Neurological: Mental Status: He is alert and oriented to person, place, and time. Psychiatric: Mood and Affect: Mood is depressed. Behavior: Behavior normal. Thought Content: Thought content includes suicidal ideation. Thought content includes suicidal plan. Cognition and Memory: Cognition normal. Judgment: Judgment normal. Judgment is not impulsive or inappropriate. Procedures ED COURSE A medical screening exam was performed. First call paged initially at 1941. Awaiting callback. Callback at 1944 from [facility]. They will evaluate. Evaluated the patient there is no concern for medical complaints today. Patient is here for suicidalideations. Crisis has been consulted. 2122: CRISIS feels patient will require inpatient treatment, referring for Psychiatry to see. Psychiatry has evaluated the patient and feels that he meets inpatient criteria. Patient was signed out to cleve FLYNN. Final diagnoses: None DISPOSITION: No disposition on file PCP: Maximus Cabral MDM Valencia Jones 12/05/2019 19:41 No flowsheet data found. eyshawn García RN - 12/05/2019 1938 EDT TCALL: JESUSITA TONG 79, REF BY GANESH AT FIRST [facility], SI, ANXIETY, DEPRESSION (CJZ) documented in this encounter Miscellaneous Notes ED Consult - Shelbie Perez-MD Aarti - 12/05/20198 EDT [facility] Emergency Department Emergency Psychiatry Assessment Reason for consult: Psychiatric evaluation SUBJECTIVE Jesusita Tong is a 44 y.o. male who presents to the emergency department with cc of I cannot stop thinking about wanting to kill myself. Mr. Tong reports a history of bipolar 2 disorder that was diagnosed with approximately 10 years ago during an inpatient hospitalization on [facility]. Hereports that 3 weeks ago he had been doing very well. He reports that he felt like he was being anawesome father, he was taking on more responsibilities in many aspects of his life, and was better able to keep his house clean. He reports that during that time he needed less sleep and felt somewhat euphoric. He reports after week of that he had approximately 3 to 5 days during which he felt euthymic, followed by a week of acute suicidal ideation. He reports that he has not felt as anxious nor depressed as he has during previous depressive episodes, but does feel significantly more suicidal than on previous occasions. He states that he feels very empty and emotionless but reports that he doesnot feel sad or anxious necessarily. He reports that he has been having significant decreased concent ration while at work. He reports that he is getting 4 to 5 hours of sleep at night and though he feels emotionally exhausted, he does not feel as physically tired reporting again that he feels mostly empty. He denies any acute triggers, and denies increased life stressors. Jesusita reports that he has been having intrusive and ruminative thoughts about suicide, he has had some decrease in sadness but not significantly, he has decreased interest in doing just about anything, he feels extreme guilt especially in relation to his suicidal thoughts especially as the relate tohis daughters. He reports that he has some decreased energy, but mostly just decreased motivation. He reports that he is doing poorly at work due to his acute decreased concentration. He reports that his appetite is somewhat decreased. He denies feeling anxious about the future other than he does worry about an inpatient hospitalization as it would prevent him from fulfilling his responsibilities, but also recognizes that he has not been able to fill his responsibilities due to his ongoing suicidal thoughts. He reports that he only reason he has not killed himself yet was because of his obligation to his daughters. He reports that he is unable to break the cycle of thinking about suicide and knowing that he is unable to commit suicide due to this previously stated obligation to family members. Psychiatric Review of Systems: ?? Psychotic: none endorsed or evident ?? Suicidal/violent: active suicidal ideation and suicide plan Overdose on medications including lithium. ?? Sleep: belt changer awakening ?? Appetite: Decreased appetite General Review of Systems: A complete 13 point review of systems completed, all negative except as marked below Pos ROS Constitutional Eyes Ears, nose, throat Cardiovascular Respiratory Gastrointestinal Genitourinary Musculoskeletal Integumentary Neurological Endocrine Hematologic Allergic HISTORY: Past Medical History: Diagnosis Date ??? Psychiatric problem depression, ?bipolar Psychiatric History: Past hospitalizations: Yes: 1 Prior suicide attempts: Yes: Last attempt: 1999 via Overdose Prior violence: Denies Current provider/s: Yes, Augustus Echevarria Current medications: Seroquel 100 mg nightly, 50 mg at lunch, Latuda 60 mg nightly, lithium 1200 mg nightly Family psychiatric history: Denies Social History: Marital status: Occupation / income: employed full-time Living arrangements: with children half of the time Legal history: none, Abuse History: - Psychological: none endorsed - Physical: none endorsed - Sexual: none endorsed Substance Use History: Vaping history, reports equivalent greater than 1 pack/day nicotine equivalent. Denies alcohol use, denies illicit substance use Legal consequences of substance/alcohol use: No History of substance/alcohol abuse treatment: No Readiness for substance/alcohol abuse treatment, if applicable: maintenance OBJECTIVE No Known Allergies BP (!) 145/72 (BP Cuff Location: Right arm, BP Patient Position: Sitting) Pulse 87 Temp 36.9 ??C(98.4 ??F) (Temporal) Resp 18 Ht 180.3 cm (71) Wt 83.5 kg (184 lb) SpO2 99% BMI 25.66 kg/m?? Mental Status Examination: Appearance: 44 y.o. man, casually dressed, well groomed Behavior: withdrawn, poor eye contact, decreased psychomotor activity, normal tone and normal bulk Speech: well-articulated, fluent, slowed and quiet speech, normal spontaneity Mood: flat Affect: congruent with mood Perceptions: no perceptual disturbances Thought process: Perseverative Associations: tight Thought content: hopelessness, worthlessness, excessive guilt and excessive preoccupations, active suicidal ideation Sensorium: alert Orientation: to person, place, time and situation Attention: grossly intact Memory: grossly intact Language: is normal and shows no deficits 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 male with history detailed above. He is having intrusive and ruminative thoughts about suicide. He reports that he is only not committed suicide due to obligations to his family. He worries that if he goes home that he will act on his suicidal thoughts despite protective factors. He may likelybe in a bipolar depression following a recent hypomanic episode. He reports that in some ways this is a different experience than previous depressive episodes marked by less depression and more apathy.He reports that he cannot remember a time in recent history that he was the suicidal. He would likely benefit from inpatient hospitalization, he is a clear and present danger to himself and would likely meet criteria for an involuntary hold, however he is currently voluntary for admission. DIAGNOSIS: Depressive episode unspecified History of bipolar 2 disorder PLAN: 1. Continue 1:1 observation 2. Patient is voluntary for psychiatric admission 3. Continue DOCUMENT CONTROL CLERK medications as listed above 4. in the event of a psychiatric emergency: Haloperidol 5 mg and Lorazepam 2 mg to be offered PO unless patient is an acute danger to themselves/other in which case this should be given IM x1. If emergency medications are given please notify the psychiatrist electronic wirer for the ED. Above assessment and plan discussed with psychiatry attending, Dr. Aguilar. Rommel Lovell M.D. PGY1 Psychiatry Pager # [phone] I've seen and examined the patient on 12/06/2019. I agree with the resident's documented assessment and plan with the following exceptions/additions: On exam Jesusita is calm and cooperative, mood is clearly improving. He states that unfortunately thesedips in mood occur approx 1 time/year if not more. They typically last 1 week and rarely more. He felt that this episode was more intense that his typical, however today he feels the same as prior episodes when he has come out of the episode in the past. He states that he is still sad but no longer feels empty. He is encouraged by the fact that his daughter hugged him prior to him coming in to the hospital and feels very supported by both of his daughters. He is very confident that his mood will continue to improve as he is used to this pattern of feelings. He denies any suicidal ideation at this point and is adamant that he feels fully safe. He was offered a bed a [place] however he declines this as his mood is improving and he feels it would be more beneficial for him to be at home with hisfamily. He is amenable to increasing his latuda to 80mg at night (for further prophylaxis against depressive episodes) and following up with his psychiatrist this week. DX: Bipolar II disorder, current episode depressed PLAN: Pt does not meet criteria for EE and may discharge of his own volition Rec to provide 1 week of 20mg latuda to be taken with 60mg Thank you for the consultation on this patient. Odalis Perez M.D. Emergency Psychiatry Attending Pager: [phone] D Consult - Teofilo Cabrera - 12/05/2019 9476 EDT [employer] Initial Assessment Note Admit Date: 12/05/2019 Date of Consult: 12/05/2019 Suicidal Presenting Information: Hina is a 44 yr old male, known to the through recent crisis assessment, presenting for assessment at the [facility] ED due to concerns of SI. Hina reports his SI has worsened over the past week, and was assessed three days ago via telehealth. At that time, it was determined hina couldbe supported on an outpatient basis with a safety plan, phone checks, AA meetings, family support, and a therapy referral. Hina states his condition has worsened and he no longer feels safe at his home due to his temptation to overdose. Hina has one prior inpatient psychiatric hospitalization 10 yrs ago on [facility] due to mood symptoms. Hina is currently treated by his PCP, Dr. Cabral, and his psychiatrist, Augustus Echevarria at [facility]. He states he is compliant with his lithium, seroquel, and latuda. Upon interview, hina is easily engaged but with notably flat affect. He clearly states his suicidal thoughts and appears a good historian. What is unclear to hina, and this typewriters functional tester, is what precipitated this episode of suicidality. The only potential change noted by this typewriters functional tester is that hina's partner was away for 3.5 wks, returning shortly after ct's worsening mental state began. Of note, hina's prior inpatient episode was precipitated by relational issues. Nevertheless, hina and his partner do not indicate relational issues and do not correlate the partner's absence with ct's onset of SI. Hina states that up until this past week, he was actually doing quite well with his mental health. Please see risk sectionbelow for details of suicide risk assessment. Substance Use (if applicable): Hina denies recent use but has a hx of alcoholism. Relevant Psychosocial Information: Hina lives with his 17 yr old daughter and 50% of the time his 15 yr old daughter lives there as well. He has a partner, Mitali, who does not live with him. He works fulltime. Mental Status Appearance: Well groomed Attitude: Cooperative Behavior: No Distubance Noted Normal Rate / Rhythm / Tone Mood: Sad Sleep Pattern: No Disturbance Noted Appetite: No Disturbance Noted Affect: Flat Thought Process: Clear, Coherent, Organized and Goal-Directed Perception: No Disturbance Noted Cognitions: Alert and Oriented Insight: Fair Judgement: Fair Concentration: Good Orientation: Oriented times three Risk Assessment Suicidality: Ct endorses current SI with thoughts to OD on the pills he has access to at his home. Ct has attempted suicide once in his life, around age 22, via overdose ingestion of pills, requiring medical intervention. He denies a hx of self-harm. He does note periodic episodes of SI. His current episode has worsened over the course of the past week. He endorses thoughts such as I just want to and I feel like I'm losing control and everyone around me would be better off if I was . Homicidality: Ct denies HI. Clinical Interpretation: Hina is a 44 yr old male who presented for assessment due to concerns of SI. While the etiology of ct's onset of acute SI is unclear, he does not appear safe to return home and would likely benefit from inpatient psychiatric treatment for the purposes of stabilization, medication evaluation, and developing insight into his episodes of suicidality and tools to manage these issues moving forward. Ct is willing to be referred out to other hospitals within the critical access hospital. Plan: The plan for this patient is: [facility] [place] [facility], [facility], [facility] Consultation with: Dr. Nas Cabrera [employer] [facility] documented in this encounter Plan of Treatment Not on filedocumented as of this encounter Procedures Procedure Name Priority Date/Time Associated Diagnosis Comme nts ECG REPORT - 12/20/2019 10:33 SCANNED EDT ECG REPORT - 12/10/2019 15:48 SCANNED EDT DRUG SCREEN 11, STAT 12/06/2019 11:48 Results for this URINE EDT procedure are i n the results section. EKG 12-LEAD STAT 12/06/2019 10:30 Results for this EDT procedure are i n the results section. TSH STAT 12/06/2019 10:25 Results for this EDT procedure are i n the results section. LITHIUM STAT 12/06/2019 10:25 Results for this EDT procedure are i n the results section. EKG 12-LEAD STAT 12/06/2019 10:17 Results for this EDT procedure are i n the results section. COVID-19 TEST [facility] STAT 12/06/2019 0:02 EDT LAB PCR COVID-19 TESTING STAT 12/06/2019 0:02 EDT Resu lts for this procedure are i n the results section. documented in this encounter Results DRUG SCREEN 11, URINE (12/06/2019 11:48 EDT) Amphetamine Screen, Negative Screen Negative, [facility] Ur Comment: Negative CENTER Confirmation testing available upon request. Screen LABORATORY Suitable for medical purposes only. SERVI MARTI Will not detect all drugs within class. Cutoff = 500 ng/mL Barbiturates Screen, Negative Screen Negative, [facility] Ur Comment: Negative CENTER Confirmation testing available upon request. Screen LABORATORY Suitable for medical purposes only. SERVI MARTI Will not detect all drugs within class. Cutoff = 200 ng/mL Benzodiazepine Negative Screen Negative, [facility] Screen, Ur Comment: Negative CENTER Confirmation testing available upon request. Screen LABORATORY Suitable for medical purposes only. SERVI MARTI Will not detect all drugs within class. Cutoff = 150 ng/mL Buprenorphine and Negative Screen Negative, [facility] Metabolites Screen, Comment: Negative CENTER Ur Confirmation testing available upon request. Screen LABORATORY Suitable for medical purposes only. SERVI MARTI Will not detect all drugs within class. Cutoff = 10 ng/mL Cannabinoids Screen, Negative Screen Negative, [facility] Ur Comment: Negative CENTER Confirmation testing available upon request. Screen LABORATORY Suitable for medical purposes only. SERVI MARTI Will not detect all drugs within class. Cutoff = 50 ng/mL Cocaine Metabolites Negative Screen Negative, [facility] Screen, Ur Comment: Negative CENTER Confirmation testing available upon request. Screen LABORATORY Suitable for medical purposes only. SERVI MARTI Will not detect all drugs within class. Cutoff = 150 ng/mL Methadone Screen, Ur Negative Screen Negative, [facility] Comment: Negative CENTER Confirmation testing available upon request. Screen LABORATORY Suitable for medical purposes only. SERVI MARTI Will not detect all drugs within class. Cutoff = 200 ng/mL Methamphetamine Negative Screen Negative, [facility] Screen, Ur Comment: Negative CENTER Confirmation testing available upon request. Screen LABORATORY Suitable for medical purposes only. SERVI MARTI Will not detect all drugs within class. Cutoff = 500 ng/mL Opiates Screen, Ur Negative Screen Negative, [facility] Comment: Negative CENTER Confirmation testing available upon request. Screen LABORATORY Suitable for medical purposes only. SERVI MARTI Will not detect all drugs within class. Cutoff = 100 ng/mL Oxycodone Screen, Ur Negative Screen Negative, [facility] Comment: Negative CENTER Confirmation testing available upon request. Screen LABORATORY Suitable for medical purposes only. SERVI MARTI Will not detect all drugs within class. Cutoff = 100 ng/mL Propoxyphene Screen, Negative Screen Negative, [facility] Comment: Negative CENTER Confirmation testing available upon request. Screen LABORATORY Suitable for medical purposes only. SERVI MARTI Will not detect all drugs within class. Cutoff = 300 ng/mL Specimen Urine - Urine (substance) Performing Organization Address City/State/ZIP Code Phon e Number [facility] [address] [place] [address] SERVICES EKG 12-LEAD (12/06/2019 10:30 EDT) Specimen Narrative [facility] EKG - 12/10/2019 15:4 5 EDT ?[facility] Emergency ? Test Date: ?2019-12-06 Pat Name: ? JESUSITA TONG ?Department: ?? ED ? Room: ? GT28 Gender: ? Male ? Concrete Bucket Hooker: ?? [id number] : ?1975 ? Requested By: RICCO Frazier Order Number: [id number] ? Shon GONZALEZ: ?? EDUARDO CHAUHAN MD PhD ? Measurements Intervals ?[place] ? Rate: ? 71 ? P: ?68 WV: ? 202 ?QRS: ?31 QRSD: ? 106 ?T: ?43 QT: ? 397 ? QTc: ?432 ? Interpretive Statements Normal sinus rhythm Compared with prior tracing, less artifa ct on the [facility] tracing Edited by JEFF GARCIA MD on 12-07 16:36:52 EDT. I reviewed the tracing and have either a greed or edited the findings in this report. Electronically Signed On 0 15:45:04 EDT by EDUARDO CHAUHAN MD PhD. Procedure Note Eduardo Chauhan MD - [address] [facility] Test Date: 2019-12-06 Pat Name: JESUSITA TONG Department: ED Room: 28 Gender: Male Concrete Bucket Hooker: [id number] : 1975 Requested By: RICCO Frazier Order Number: [id number] Reading MD: Jace CHAUHAN MD PhD Measurements Intervals [place] Rate: 71 P: 68 WV: 202 QRS: 31 QRSD: 106 T: 43 QT: 397 QTc: 432 Interpretive Statements Normal sinus rhythm Compared with prior tracing, less artifa ct on the [facility] tracing Edited by JEFF GARCIA MD on 12-07 16:36:52 EDT. I reviewed the tracing and have either a greed or edited the findings in this report. Electronically Signed On 0 15:45:04 EDT by EDUARDO CHAUHAN MD PhD. Performing Organization Address [facility] e Number [facility] EKG LITHIUM (12/06/2019 10:25 EDT) [place] 1.0 See Note mEq/L [facility] Comment: LABORATORY SERVICES Therapeutic Range for [place]: 18 years and older: ??0.6 - 1.2 mEq/L Therapeutic range not established for individuals <18 years old. Specimen Blood - Venous blood (substance) Performing Organization Address [facility] e Number [facility] [address] [place] [address] SERVICES TSH (12/06/2019 10:25 EDT) Pathologist Sig nature [place] 1.29 0.47 - 4.68 uIU/mL [facility] SERVICES Specimen Blood - Venous blood (substance) Narrative [facility] SERVICES - 12/06/2019 11:27 EDT The results of this assay can be falsely lowered due to the consumption of Biotin. Performing Organization Address [facility] Phon e Number [facility] [address] [place] [address] SERVICES EKG 12-LEAD (12/06/2019 10:17 EDT) Specimen Narrative [facility] EKG - 12/20/2019 10:2 7 EDT ?[facility] Emergency ? Test Date: ?2019-12-06 Pat Name: ? JESUSITA TONG ?Department: ?? ED ? Room: ? GT28 Gender: ? Male ? Concrete Bucket Hooker: ?? [id number] : ?1975 ? Requested By: RICCO Frazier Order Number: [id number] ? Reading MD: ?? ALVARO MOTA MD ? Measurements Intervals ?[place] ? Rate: ? 76 ? P: ?71 WV: ? 195 ?QRS: ?32 QRSD: ? 97 ? T: ?52 QT: ? 392 ? QTc: ?441 ? Interpretive Statements SINUS RHYTHM Poor data quality limiting interpretatio n nonspecific ST-T wave abnormalities ??Edited by JEFF GARCIA MD on 12-08-2019 16:35:12 EDT. I reviewed the tracing and have either a greed or edited the findings in this report. Electronically Signed On 12-20-19 10:27:05 EDT by ALVARO MOTA MD. Procedure Note Alvaro Mota MD - 12/20/2019 [facility] Test Date: 2019-12-06 Pat Name: JESUSITA TONG Department: ED Room: [facility] Gender: Male Concrete Bucket Hooker: [id number] : 1975 Requested By: RICCO Frazier Order Number: [id number] Shon MD: Naren MOTA MD Measurements Intervals [place] Rate: 76 P: 71 WV: 195 QRS: 32 QRSD: 97 T: 52 QT: 392 QTc: 441 Interpretive Statements SINUS RHYTHM Poor data quality limiting interpretatio n nonspecific ST-T wave abnormalities Edited by JEFF GARCIA MD on 12-08-2019 16:35:12 EDT. I reviewed the tracing and have either a greed or edited the findings in this report. Electronically Signed On 12-20-19 10:27:05 EDT by ALVARO MOTA MD. Performing Organization Address City/[facility]/ZIP Code Phon e Number [facility] EKG COVID-19 TEST [facility] PCR (12/06/2019 0:02 EDT) Specimen Swab - Entire nasopharynx (body structur e) Performing Organization Address [facility]/ZIP Code Phon e Number [facility] [address] [place] [address] SERVICES COVID-19 TESTING (12/06/2019 0:02 EDT) COVID-19 rt-PCR Negative Negative [facility] Result Comment: CENTER LABORATORY This test has not been FDA c leared or approved. This test has been authorized by FDA under an EUA for use by authorized laboratories. This test has been authorized only for detection of nucleic acid fro SERVICES m 2019-nCoV, not for any oth er viruses or pathogens. This test is only authorized for the duration of the declaration that circumstances exist justifying the authorization of emergency use of in vitro d iagnostic tests for detectio n and/or diagnosis of 2019-nCoV under section 564(b)(1) of Act, 21 U.S.C ?? 360bbb-3(b) (1), unless the authorization is terminated or revoked sooner. Negative results do not prec lude 2019-nCoV infection and should not be used as the sole basis for treatment or other patient management decisions. Negative results must be combined with clinical observa tions, patient history, and epidemiological informatio n. Performed on the [employer] GeneXpert Instrument Performing Lab GeneXpert [facility] Lab [facility] SERVICES Specimen Swab - Entire nasopharynx (body structur e) Performing Organization Address City/State/ZIP Code Phon e Number [facility] [address] [place] [address] SERVICES documented in this encounter Visit Diagnoses Diagnosis Depression, unspecified depression type - Primary Suicidal ideation documented in this encounter Administered Medications Inactive Administered Medications - up to 3 most recent administrations Medication Order MAR Action Action Date Dose Rate Site lithium (LITHOBID) SR tablet 1,200 Given 12/05/2019 23:25 EDT 1, 200 mg mg 1,200 mg, oral, AT BEDTIME, First dose on 12/05/19 at 2315, Until Discontinued, STAT lurasidone (LATUDA) tablet 60 mg Given 12/05/2019 23:26 EDT 60 mg 60 mg, oral, DAILY, First dose on Fri12/06/19 at 0900, Until Discontinued, STAT lurasidone (LATUDA) tablet 60 mg 60 mg, oral, AT BEDTIME, First dose (after last modifi cation) on Fri12/05/19 at 2330, Until Discontinued, STAT nicotine (NICODERM CQ) 21 mg/24 Patch Applied 12/06/2019 0:24 EDT 1 P atch Right Arm hr patch 1 Patch 1 Patch, transdermal, DAILY, First dose on Fri12/06/19 at 0015, Until Discontinued, STAT nicotine (NICOTROL) 10 mg inhaler kit 1 Given 12/06/2019 12:26 E DT 1 Inhaler Inhaler 1 Inhaler, inhalation, EVERY 2 HOURS PRN, Starting on Fri12/06/19 at 0004, Until Fri12/06/19 at 1552, Smoking Cessation, STAT Given 12/06/2019 0:16 EDT 1 Inhaler nicotine inhaler (delivery device) Given 12/06/2019 0:16 EDT 1 Each 1 Each, inhalation, PRN, Starting on Fri12/06/19 at 0004, Until Fri12/06/19 at 1552, Smoking Cessation QUEtiapine (SEROQUEL) tablet 100 mg Given 12/05/2019 23:25 EDT 100 mg 100 mg, oral, AT BEDTIME, First dose on 12/05/19 at 2315, Until Discontinued, STAT QUEtiapine (SEROQUEL) tablet 50 mg Given 12/06/2019 12:22 EDT 50 mg 50 mg, oral, DAILY WITH LUNCH, First dose (after last modification) on Fri12/06/19 at 1215, Until Discontinued, STAT documented in this encounter Historical Medications This list may reflect changes made after this encounter. Medication Sig Dispensed Refills Start Date End Date lurasidone (LATUDA) 60 mg Take 60 mg by mouth 0 tablet daily. latanoprost (XALATAN) 0.005 Place 1 Drop into 0 % ophthalmic solution both eyes daily. QUEtiapine (SEROQUEL) 100 Take 50 mg by mouth 0 mg tablet daily with lunch. added in this encounter Active and Recently Administered Medications Times are shown in EDT. Scheduled Medication Order 12/04/2019 12/05/2019 12/06/2019 lithium (LITHOBID) SR tablet 1,200 mg 23 25 (Given - Provider: Yesica Eduardo RN) 1,200 mg, oral, AT BEDTIME, First dose o n 12/05/19 at 2315, Until Discontinued, STAT lurasidone (LATUDA) tablet 60 mg (CANCELED) 2326 (Given - Provider: Yesica Eduardo RN) 60 mg, oral, DAILY, First dose on Fri12/06/19 at 0900, Until Discontinued, STAT lurasidone (LATUDA) tablet 60 mg 2345 (H old - Provider: Yesica Eduardo RN - Reason: Other - Comment: Med received. See eMar.) 60 mg, oral, AT BEDTIME, First dose (aft er last modification) on Fri12/05/19 at 2330, Until Discontinued, STAT nicotine (NICODERM CQ) 21 mg/24 hr patch 1 Patch 0024 (Patch Applied - Provider: Yesica Eduardo RN) 1 Patch, transdermal, DAILY, First dose on Fri12/06/19 at 0015, Until Discontinued, STAT QUEtiapine (SEROQUEL) tablet 100 mg 2325 (Given - Provider: Yesica Eduardo RN) 100 mg, oral, AT BEDTIME, First dose on Fri12/05/19 at 2315, Until Discontinued, STAT QUEtiapine (SEROQUEL) tablet 50 mg 1222 (Given - Provider: Vianca Murray RN) 50 mg, oral, DAILY WITH LUNCH, First dos e (after last modification) on Fri12/06/19 at 1215, Until Discontinued, STAT PRN Medication Order 12/04/2019 12/05/2019 12/06/2019 nicotine (NICOTROL) 10 mg inhaler kit 1 Inhaler 0016 (Given - Provider: Yesica Eduardo RN)1226 (Given - Provider: Vianca Murray RN) 1 Inhaler, inhalation, EVERY 2 HOURS PRN , Starting Fri12/06/19 at 0004, Until Fri12/06/19 at 1552, Smoking Cessation, STAT nicotine inhaler (delivery device) 0016 (Given - Provider: Yesica Eduardo RN) 1 Each, inhalation, PRN, Starting Fri at 0004, Until Fri12/06/19 at 1552, Smoking Cessation documented in this encounter Orders Medications Ordered That Might Not Have Count Last Ord ered Date First Ordered Date Been Administered latanoprost (XALATAN) 0.005 % ophthalmic 1 020 solution 1 Drop lurasidone (LATUDA) tablet 60 mg 1 12/05/2019 QUEtiapine (SEROQUEL) tablet 50 mg 1 12/05/2019 Procedures Count Last Ordered Date First Ordered Date ECG REPORT - SCANNED 2 12/20/2019 12/14/2019 documented in this encounter Care Teams Tube Repairer Relationship Specialty Start Date End Date Maximus Cabral, MD PCP - General 07/26/14 documented as of this encounter
--- OUTSIDE RECORDS SUMMARY | 2021-12-07 00:57 | XMS_ITS | Encounter Summary ---
:1975 Author Organization [facility] Address [address] [place] [address] Care Team Providers Name Role Phone Maximus Cabral MD Primary Care Provider Encounter Details Date Type Department Care Team Description 01/28/2018 Results Only [facility]- PRISM Augustus Echevarria, PMHNP [phone] [address] [place] [phone] (Wo rk) Social History Tobacco Use Types [...] Date/Time Associated Diagnosis Comme nts LITHIUM Routine 01/28/2018 9:19 EDT Results for this procedure are i n the results section . documented in this encounter Results LITHIUM (01/28/2018 9:19 EDT) Pathologist Sig nature [place] 0.8 0.6 - 1.2 mEq/L [facility] SERVICES Specimen Blood Performing Organization Address City/State/ZIP Code Phon e Number [facility] [address] [place] [address] SERVICES documented in this encounter Visit Diagnoses Not on filedocumented in this encounter Care Teams Generator Rebuilder Relationship Specialty Start Date End Date Maximus Cabral MD PCP - General 07/26/14 documented as of this encounter
--- OUTSIDE RECORDS SUMMARY | 2021-12-07 00:58 | XMS_ITS | Encounter Summary ---
:1975 Author Organization [facility] Address [address] [place] [address] Care Team Providers Name Role Phone None, Provider Primary Care Provider Unavailable Encounter Details Date Type Department Care Team Description 04/13/2014 Hospital Encounter [facility] Maximus Cabral [facility] MD [address] [address] [address] [place] [address] (Wo rk) Social History Tobacco Use Types Packs/Day Years Used Date Current Every Day Smoker 0.5 Alcohol Habits Answer Date Recorded How often [...] as of this encounter Discharge Diagnoses Diagnosis 799.81 DECREASED LIBIDO[ICD-9-CM] documented in this encounter Medications at Time of Discharge Medication Sig Dispensed Refills Start Date End Date buPROPion (WELLBUTRIN) 75 Take 1 Tab by mouth 28 Tab 1 0 08/14/2009 05/17/2015 mg tablet 2 times daily. citalopram (CELEXA) 20 mg Take 1 Tab by mouth 14 Tab 1 0 08/14/2009 12/23/2015 tablet daily. clonazepam (KLONOPIN) 1 Take 1 Tab by mouth 28 Tab 1 01/201005/17/2015 mg tablet 2 times daily. clonazepam (KLONOPIN) 1 Take 1 Tab by mouth 28 Tab 1 01/201005/17/2015 mg tablet twice daily with lunch and dinner. documented as of this encounter Discharge Disposition Disposition Code Departure Means Destination Home or Self Care documented in this encounter Plan of Treatment Not on filedocumented as of this encounter Visit Diagnoses Not on filedocumented in this encounter Care Teams Real Property Appraiser Relationship Specialty Start Date End Date None, Provider PCP - General 07/11/09 07/25/14 documented as of this encounter
--- OUTSIDE RECORDS SUMMARY | 2021-12-07 00:58 | XMS_ITS | Encounter Summary ---
:1975 Author Organization [facility] Address [address] [place] [address] Care Team Providers Name Role Phone Maximus Cabral MD Primary Care Provider [phone] Encounter Details Date Type Department Care Team Description 11/23/2015 Results Only [facility]- PRISM Augustus Echevarria, PMHNP [phone] [address] [place] [phone] (Wo rk) Social History Tobacco Use Types Packs/Day Years Used Date Current Some Day Smoker 0.5 Smokeless Tobacco: Never Used Alcohol Use Standard Drinks/Week Comments No 0 [...] Date/Time Associated Diagnosis Comme nts LITHIUM Routine 11/23/2015 9:41 EDT Results for this procedure are i n the results section . documented in this encounter Results (ABNORMAL) LITHIUM (11/23/2015 9:41 EDT) Pathologist Sig nature [place] 0.3 (L) 0.6 - 1.2 mEq/L [facility] SERVICES Specimen Blood Performing Organization Address City/State/ZIP Code Phon e Number [facility] [address] [place] [address] SERVICES documented in this encounter Visit Diagnoses Not on filedocumented in this encounter Care Teams Mop Maker Relationship Specialty Start Date End Date Maximus Cabral MD PCP - General 07/26/14 documented as of this encounter
--- OUTSIDE RECORDS SUMMARY | 2021-12-07 00:58 | XMS_ITS | Encounter Summary ---
:1975 Author Organization [facility] Address [address] [place] [address] Care Team Providers Name Role Phone Maximus Cabral MD Primary Care Provider [phone] Encounter Details Date Type Department Care Team Description 11/14/2015 Results Only [facility]- PRISM Augustus Echevarria, PMHNP [phone] [address] [place] [phone] (Wo rk) Social History Tobacco Use Types [...] Date/Time Associated Diagnosis Comme nts LITHIUM Routine 11/14/2015 8:43 EDT Results for this procedure are i n the results section . documented in this encounter Results (ABNORMAL) LITHIUM (11/14/2015 8:43 EDT) Pathologist Sig nature [place] <0.2 (L) 0.6 - 1.2 mEq/L [facility] SERVICES Specimen Blood Performing Organization Address City/State/ZIP Code Phon e Number [facility] [address] [place] [address] SERVICES documented in this encounter Visit Diagnoses Not on filedocumented in this encounter Care Teams Tallow Pumper Relationship Specialty Start Date End Date Maximus Cabral MD PCP - General 07/26/14 documented as of this encounter
--- OUTSIDE RECORDS SUMMARY | 2021-12-07 00:58 | XMS_ITS | Encounter Summary ---
:1975 Author Organization [facility] Address [address] [place] [address] Care Team Providers Name Role Phone Maximus Cabral MD Primary Care Provider [phone] Encounter Details Date Type Department Care Team Description 03/26/2016 Results Only [facility]- PRISM Augustus Echevarria, PMHNP [phone] [address] [place] [phone] (Wo rk) Social History Tobacco Use Types [...] Date/Time Associated Diagnosis Comme nts LITHIUM Routine 03/26/2016 10:19 EST Results for this procedure are i n the results section . documented in this encounter Results LITHIUM (03/26/2016 10:19 EST) Pathologist Sig nature [place] 0.7 0.6 - 1.2 mEq/L [facility] SERVICES Specimen Blood Performing Organization Address City/State/ZIP Code Phon e Number [facility] [address] [place] [address] SERVICES documented in this encounter Visit Diagnoses Not on filedocumented in this encounter Care Teams Meter Maker Relationship Specialty Start Date End Date Maximus Cabral MD PCP - General 07/26/14 documented as of this encounter
--- OUTSIDE RECORDS SUMMARY | 2021-12-07 00:58 | XMS_ITS | Encounter Summary ---
:1975 Author Organization [facility] Address [address] [place] [address] Care Team Providers Name Role Phone Maximus Cabral MD Primary Care Provider [phone] Reason for Visit Reason Comments Eye Problem 2 day f/u corneal abrasion l eft eye. VA has gotten better, pain is still there. Now it has turned int o an ache in the back of the eye, and has a stabbing feeling on outer co rner of eye. No symptoms right eye. Pt states he has been compliant with g tts. Eye is glued shut upon awakening, and pt is still very light sensitiv e. No flashes of light however pt reports floaters. Pt reported pain a s a 5, sometimes the pain wakes him from sleeping. Encounter Details Date Type Department Care Team Description 07/29/2014 Office Visit [facility] Keyshawn Fowler MD Ophthalmology - [address], [address] [place], [address] [place], [place] [id number] [place] [address] [id number] (Wo rk) Social History Tobacco Use Types [...] as of this encounter Discharge Diagnoses Diagnosis 918.1 SUPERFICIAL INJURY CORNEA[ICD-9-CM ] documented in this encounter Ordered Prescriptions Prescription Sig Dispensed Refills Start Date End Date HYDROcodone-acetaminophen Take 1 Tab by mouth 12 Tab 0 0 07/29/2014 08/02/2014 (NORCO) 5-325 mg tablet every 6 hours as needed for Pain Daily Max: 4 Tabs documented in this encounter Progress Notes Keyshawn Fowler MD - 07/29/2014 1301 EDT Chief Complaint Patient presents with ??? Eye Problem 2 day f/u corneal abrasion left eye. VA has gotten better, pain is still there. Now it has turned into an ache in the back of the eye, and has a stabbing feeling on outer corner of eye. No symptoms right eye. Pt states he has been compliant with gtts. Eye is glued shut upon awakening, and pt is stillvery light sensitive. No flashes of light however pt reports floaters. Pt reported pain as a 5, sometimes the pain wakes him from sleeping. HPI :The patient is a 38 y.o. male Right Eye: NL Left Eye: Blurred Vision, Burning, Tearing, Pain/Soreness, Floaters Visual Aid: Glasses Current Rx Age Location: Left eye Pain: 5 Quality: Stabbing, Sharp, Burning, Aching Severity: Severe Duration: Days Timing: Constant Lasts: Continuous Context: VA has gotten better, pain is still there. Now it has turned into an ache in the back of the eye, and has a stabbing feeling on outer corner of eye. No symptoms right eye. Pt states he has been compliant with gtts. Eye is glued shut upon awakening, and pt is still very light sensitive. No flashes of light however pt reports floaters. Pt reported pain as a 5, sometimes the pain wakes him fromsleeping. Modifying factors: Corneal abrasion left eye Associated Signs & Symptoms: Attestation: ROS Constitutional: NL ENT/Mouth NL Cardiovascular: NL Respiratory: NL Gastrointestinal: NL Genitourinary: NL Musculoskeletal: NL Integumentary: NL Neurologic: NL Psychiatric: NL Endocrine: NL Hematologic: NL Immunologic: NL Multimedia Production Assistant: Exposures: None Other: Attestation: Allergies include: Review of patient's allergies indicates no known allergies. Patient Active Problem List Diagnosis ??? Suicidal ideation ??? Depression Outpatient Prescriptions Marked as Taking for the 07/29/14 encounter (Office Visit) with Keyshawn Fowler MD Medication Sig ??? [DISCONTINUED] HYDROcodone-acetaminophen (NORCO) 5-325 mg tablet Take 1 Tab by mouth every 6 hours as needed for Pain Daily Max: 4 Tabs ??? ofloxacin (OCUFLOX) 0.3 % ophthalmic solution Place 1 Drop into the left eye 4 times daily Past Medical History Diagnosis Date ??? Psychiatric problem depression, ?bipolar No past surgical history on file. No family history on file. Patient reports that he has been smoking. He does not have any smokeless tobacco history on file. Hereports that he does not use illicit drugs. Recent HbA1c: No results found for this basename: HGBA1C Base Eye Exam Visual Acuity (Snellen - Linear) Right Left Dist cc 20/20 20/30 +1 Correction: Glasses Slit Lamp and Fundus Exam External Exam Right Left External Normal 1+ periorb edema and trace erythema Slit Lamp Exam Right Left Lids/Lashes Normal as above Conjunctiva/Sclera White and quiet trace injection Cornea Clear central epi defect, 4.8 x 5.9 mm, healing edges, no infiltrate, no thinning Anterior Chamber Deep and quiet Deep and quiet Iris Round and reactive Round and reactive Lens Clear Clear Vitreous Normal Normal Fundus Exam Right Left Disc Normal Normal C/D Ratio 0.2 ~0.2 Macula Normal Normal Vessels Normal Normal Edited by: Keyshawn Fowler MD IMPRESSION & PLAN: 1. Corneal abrasion, left -- continues to heal, pain still bad but improving, moderated with Vicodin-- no sign of infection -- replaced BCL, change oflox to vigamox OS BID, renewed Vicodin rx -- pt iscoordinating his narcotic rx with his AA sponsor (recovering alcoholic) F/U 4 D I have reviewed the past medical, family, social and surgical history. I have reviewed the meds, allergies, and problem list. I performed my own HPI and reviewed the ROS. I personally completed the exam. The patient was instructed to call our office or go to emergency room if worse vision, worse symptoms, or new/other concerns arise. Keyshawn Fowler MD I am scribing for Dr. Fowler, while he is performing the service. Keyshawn Fowler MD documented in this encounter Plan of Treatment Not on filedocumented as of this encounter Visit Diagnoses Diagnosis Corneal abrasion, left - Primary Superficial injury of cornea documented in this encounter Discontinued Medications Medication Sig Discontinue Reason Start Date End Date HYDROcodone-acetaminophe Take 1 Tab by mouth 5 07/29/2014 n (NORCO) 5-325 mg every 6 hours as tablet needed for Pain Daily Max: 4 Tabs documented as of this encounter Eye Exam Visual Acuity (Snellen - Linear) Right eye Left eye Dist cc 20/20 20/30 +1 Correction: Glasses External Exam Right eye Left eye External Normal 1+ periorb edema and trace erythema Slit Lamp Exam Right eye Left eye Lids/Lashes Normal as above Conjunctiva/Sclera White and quiet trace injection Cornea Clear central epi defect, 4.8 x 5.9 mm, healing edges, no infiltrate , no thinning Anterior Chamber Deep and quiet Deep and quiet Iris Round and reactive Round and reactive Lens Clear Clear Vitreous Normal Normal Fundus Exam Right eye Left eye Disc Normal Normal C/D Ratio 0.2 ~0.2 Macula Normal Normal Vessels Normal Normal Care Teams Educational Consultant Relationship Specialty Start Date End Date Maximus Cabral MD PCP - General 07/26/14 documented as of this encounter
--- OUTSIDE RECORDS SUMMARY | 2021-12-07 00:58 | XMS_ITS | Encounter Summary ---
:[address] [facility] Address [address] [place] [address] Care Team Providers Name Role Phone None, Provider Primary Care Provider Unavailable Reason for Visit Reason Comments Suicidal Pt states he has been sober for three months and has gone on a bindge. Pt states he tried wrapping the shower hose around neck earlier. Pt states he is suicidal at present time. Encounter Details Date Type Department Care Team Description 08/03/2009 - [facility] Irineo Ryan PA-C [address] [facility], [facility] [address] [place] [address] Mood disorder 08/14/2009 Encounter Inpatient Heladio León MD ([facility]) Psychiatry Unit Chasity Aguilar MD [address] [facility] [address] [place] [address] [address] [place] [address] Social History Tobacco Use Types [...] Sign Reading Time Taken Comments Blood Pressure 115/66 08/14/2009 0734 EDT Pulse 64 08/14/2009 0734 EDT Temperature 35.7 ??C (96.3 ??F) 08/14/2009 0734 EDT Respiratory Rate 16 08/14/2009 0734 EDT Oxygen Saturation 100% 08/14/2009 0734 EDT Inhaled Oxygen Concentration - - Weight 70.8 kg (156 lb) 08/03/2009 1053 EDT Height - - Body Mass Index - - documented in this encounter Functional Status Cognitive Status Response Date of Assessment Because of a physical, mental, or emotional condition, do Ye s 08/03/2009 you have serious difficulty concentrating, remembering, or making decisions? (5 years old or older) documented as of this encounter Discharge Summaries Chasity Aguilar MD - 08/14/2009 2030 EDT 08/14/2009 Attending Final Progress Note Reason for Hospitalization: Suicidal ideation Summary of Course of Hospitalization: Pt admitted for SI in context of marital discord and recent alcohol relapse after 6 weeks of sobriety. Pt determined to be a Type II alcoholic with first use age 15 and genetic loading. He also has had intense anxiety since childhood with excessive worrying. Celexa had originally worked, but with increase STORAGE BATTERY INSPECTOR akathisia vs. anxiety was considered. Celexa was reduced to 20mg with the addition of Wellbutrin to 150/d. Seroquel was started to control his anxiety and it worked well at divided dose of 300mg/d. However, the cost as an outpatient given pt's lack of insurance was prohibitive, so he was changed to Klonopin .5 QID and increased to 1mg QID before anxiety was under similar control the Seroquel provided. A family meeting was held with pt's which was difficult. Pt was frozen with anxiety and had difficulty talking. Pt's was rather solomon and [id number]. Later she told pt she thought we were just doping him in the hospital. Pt arranged housing separate from his family on discharge and was glad to be out of the household given his 's anger and contempt for his illness. He saw his children on several occasions during the stay which went well. Pt had many mood swings, periods of intense anxiety, periods of pro-active pseudo-cheerfulness, a nd periods of anger towards his . He got great benefit from talking to his team and was able to give a clear history of his anxiety, his substance abuse, and his relationship with his . He was considered an excellent candidate for treatment (AA and substance counseling, and insight and CBT-oriented treatment). Current Clinical Status: Pt upset by communications with his , who was impatient with the discharge and generally angry about being inconvenienced by his illness. He felt angered by her attitude and by an interaction he had with a resident on Friday. But was trying to keep positive. Feels far away from the SI he had on admission and, despite the stressors, sees himself as overcoming this adversity. We discussed the discharge plan. He is pursuing getting a car with his mother's financial help from [employer] but meanwhile will use his bike and borrow a car. Mental Status Exam: Pt is a slender man of medium height with glasses and jen hair casually dressed. Eye contact good. Affect full range (angry, smiles, sad appropriately) and mood anxious and angry. Speech with Gambian accent. TP coherent and GD. TC: denies SI. Future-oriented and proactive, but realistic. No psychosis or cognitive distortions. Insight: good. Judgment: fair (wanted to walk home but was talked out of it). Diagnostic Assessment: [place] I: Generalized Anxiety Disorder, Alcohol Dependence, MJ Dependence [place] II: None [place] III: No active problems [place] IV: Stressor: marital discord with separation from [place] V: Upon D/C 62 Recommended Plan of Care Following Discharge: Pt to have intake at [place] for counseling (substance abuse) on Friday Pt to see Dr. Maximus Stewart at [facility] and Laura Mustafa NP in psychiatry at [facility] this week Increase Klonopin to 1mg QID, with an extra dose of 0.5mg now. Provided one month of meds free under funding Meds: Celexa 20mg daily, Buproprion 75mg BID, Klonopin 1mg QID Total Time to coordinate Discharge: 60 minutes CHASITY AGUILAR MD Attending Psychiatrist, Inpatient Psychiatry Service [facility] documented in this encounter Discharge Instructions Ana Zepeda - 08/14/2009 Additional Medication Instructions: Do not use alcohol Do no use illicit drugs Do not take any medications that were not prescribed Consult with a physician before starting any new herbal supplements or [id number]-[id number] medications,as some of these may interact with your prescribed medication. Discharge Plans/Follow-up Appointments: Friday08/16/09 at 9:30 am - Please see Salima Villagomez, therapist at the [facility]. The [facility] is located at [address] [place] [address] in [place]. Contact number is [phone]. Friday08/18/09 at 3:15 pm- Please see Dr. Cabral at the [facility]. The [facility] is locatedat [address] [place] [address] [phone] Friday09/11/09 at 11:00 am- Please see Laura Hunter APRN at the [facility]. Please attend as many AA meetings as you can. If you can find transportation, please consider self referring yourself to [facility]. The contact number is [phone] option 1. If you have additional questions or concerns, please do not hesitate to contact NISA Linn [phone]. Mental Health Crisis Services: [facility]: [phone] Medication Prescriptions Called to: [facility] documented in this encounter Medications at Time [...] and dinner. documented as of this encounter Ordered Prescriptions Prescription Sig Dispensed Refills Start Date End Date clonazepam (KLONOPIN) 1 mg Take 1 Tab by mouth 28 Tab 1 08/14/2009 05/17/2015 tablet twice daily with lunch and dinner. buPROPion (WELLBUTRIN) 75 Take 1 Tab by mouth 28 Tab 1 0 08/14/2009 05/17/2015 mg tablet 2 times daily. clonazepam (KLONOPIN) 1 mg Take 1 Tab by mouth 28 Tab 1 08/14/2009 05/17/2015 tablet 2 times daily. clonazepam (KLONOPIN) 0.5 Take 1 Tab by mouth 28 Tab 1 0 08/14/2009 08/14/2009 mg tablet twice daily with lunch and dinner. citalopram (CELEXA) 20 mg Take 1 Tab by mouth 14 Tab 1 0 08/14/2009 12/23/2015 tablet daily. buPROPion (WELLBUTRIN) 75 Take 1 Tab by mouth 14 Tab 1 0 08/14/2009 08/14/2009 mg tablet 2 times daily. documented in this encounter Discharge Disposition Disposition Code Departure Means Destination Home or Self Care documented in this encounter Progress Notes Ana Spaulding - 08/14/2009 1557 EDT Social Work Progress Note Intervention/Service: Discharge planning, Discharge Note and Supportive Therapy Met with Delroy along with Drs. Aguilar and Loan. He related an event this weekend where he felt his needs were not met by one of the psychiatrists. He was struggling with anxiety and was told to try doing breathing exercises when he thought he needed to take an anxiety medication. He was upset becausehe was not able to go out on a break off the unit because of his anxiety. He said he was going to go and celebrate his daughter's 5th birthday, but was reluctant to do this because of his . He wanted to walk home but finally agreed to a taxi voucher. He also agreed to go to the [facility] for therapy because he is not able to get transportation on a daily basis. He is working on obtaining transportation and has the number for [facility]. Also made appointments for him with his PCP and the tire builder heavy service at [facility]. Delroy was given a taxi voucher to get home to [place] and another for getting to his therapy appointment on Friday. He has the Crisis number and also my contact info if he has questions. Accompanied Delroy to get his meds at the [facility] pharmacy. He took a cab to [place] to get his check and his was going to pick him up at his place of employment and they would go to his daughter's birthday dinner. Ana Spaulding, PHYSICIAN'S ASSISTANT [phone] Sandra Dikcey RN - 08/14/2009 1445 EDT Active Multi-Disciplinary problems: POTENTIAL FOR HARM TO SELF OR OTHERS [58679] (08/08/09) ALTERATION IN SLEEP [[id number]] (08/08/09) Data: Discharge Planning Action:Patient discharged. All paperwork for discharge is complete with follow up plans in place. Patient understands discharge instructions and is pleased to be discharged. Response: Patient is future oriented and discharged home. Sandra Mcbride RN 08/14/2009 2:45 PM Jazmine Blake - 08/14/2009 1047 EDT Open ArtS/O: Patient attended open art for 60min. He completed a ceramic pig for his daughter who turns [age] today and focussed on adding detail. Pt reporting I am looking forward to going home. Affect pleasant, being helpful to peers. A. Engaged, calm, focusing well and social. P: Attend the Groups. Jeison Perez - 08/14/2009 0630 EDT Active Multi-Disciplinary problems: POTENTIAL FOR HARM TO SELF OR OTHERS [[id number]] (08/08/09) ALTERATION IN SLEEP [[id number]] (08/08/09) Data:Pt asleep til 0530* Action:routine observations Response: D/C today Jeison Lainez RN 08/14/2009 6:30 AM Elizabeth Silverio RN - 08/13/2009 2144 EDT Active Multi-Disciplinary problems: POTENTIAL FOR HARM TO SELF OR OTHERS [58494] (08/08/09) ALTERATION IN SLEEP [70590] (08/08/09) Data: Pt reports feeling motivated for discharge. He is looking forward to his daughter's bday tomorrow. Says he feels emotional but is doing well. Has place at neighbor's to live. He exercised this evening and was social with others. Wrote note to staff in appreciation of the help he received here. Action: medications, 1:1 Response: pt looks for henson to discharge tomorrow Elizabeth Mitchell RN 08/13/2009 9:44 PM Jasmin Arreguin - 08/13/2009 1649 EDT Coping with Grief and Anger: S/O: Pt attended full hour of Grief Group. He talked about his shift from intense suicidality last week to having a strong will to live now and work on solving his problems. Pt talked about his role asa father and how important this is to him. Pt shared that he talked with his AA sponsor who encouraged him to pray two times a day. Pt shared that he is not a scientology person but that he has started praying for direction and cried as he stated that he would pray as hard as he could for everyone in the group. A: Alert, engaged, sharing thoughts and feelings openly with the group, crying at times, and findinghope and a desire to live and encouraging others in the group to do the same. P: Continued participation in therapeutic groups. Sandra Dickey RN - 08/13/2009 1322 EDT Active Multi-Disciplinary problems: POTENTIAL FOR HARM TO SELF OR OTHERS [[id number]] (08/08/09) ALTERATION IN SLEEP [47183] (08/08/09) Data: Discharge Planning Action: Patient feels very positive about his upcoming discharge tomorrow. His has definite plans and looks forward to going back to work. He states that he is comfortable with the relationship with his as it is now. Response:Patient walks a lot on the unit and he does jennifer exercises. He is maintaining safe behaviors. Sandra Mcbride RN 08/13/2009 1:23 PM Facundo Blackmon MD - 08/13/2009 0936 EDT 08/13/2009 ATTENDING RAG INSPECTOR NOTE REASON FOR HOSPITALIZATION: SI. HOSPITAL DAY: LOS: 10 days INTERIM HISTORY: Events of past 24h reviewed with nursing staff. Denies SI or psychotic symptoms. Cooperative. Social and pleasant. Slept through the night. EXAM: A + O X 3. Decreased eye contact. Mild motor slowing. Speech RRR with normal content and prosody, without pressure. Insight/judgment WNL. Affect depressed. Talkative and somewhat circumstantial. BP 112/59 Pulse 72 Temp 35.1 ??C (95.2 ??F) Resp 16 Wt 70.761 kg (156 lb) SpO2 97% ASSESSMENT: Stable. PLAN: Continue current care. Discharge planned for Friday. FACUNDO WELLS MD Attending Psychiatrist china and silverware salesperson Pager [phone] Keiry Jason RN - 08/13/2009 0617 EDT Active Multi-Disciplinary problems: POTENTIAL FOR HARM TO SELF OR OTHERS [[id number]] (08/08/09) ALTERATION IN SLEEP [30232] (08/08/09) Data: Pt asleep at beginning of shift; awoke briefly at 0300 and again at 0400. No c/o during wakeful times. Action: Monitored on a routine basis for safety Response: Pt remained safe on unit; continue to monitor. Keiry Jason RN 08/13/2009 6:18 AM Elizabeth Silverio RN - 08/12/2009 1286 EDT Active Multi-Disciplinary problems: POTENTIAL FOR HARM TO SELF OR OTHERS [[id number]] (08/08/09) ALTERATION IN SLEEP [30225] (08/08/09) Data: Pt reported feeling angry at MDs earlier in day. He had a good chelle shift. Exercised and spent time playing cards with others. Social and pleasant. No c/o excessive anxiety this shift. Action: monitor, medications Response: Pt uses various coping skills to combat anxiety Elizabeth Mitchell, KATELYN 08/12/2009 9:28 PM Judith Roman - 08/12/2009 1710 EDT Social Work Progress Note Intervention/Service: Discharge planning, On-going assessment and Supportive Therapy Several meetings with Delroy on 08/10, 08/11 and today. We have had staff from business office return. James completed [employer] application and we will file it. It is not a guarantee at this point that he willbe eligible for this state program. He has located a rental for himself near his 's apt. Addressis [address] [place] [address] in [place]. Because of current transportation issues, we will make initial referral to [facility] substance Abuse program. Should Delroy secure transportation, he could self-refer to [facility]. Information will beprovided to him. Expect to hear back from [facility] with appointment time on Friday, 5/10 am. azmine Perez - 08/12/2009 1421 EDT S/O: Pt attended Self refection. Pt talked about things he has accomplished, what's standing in there way, and how do I take care of myself. Pt stated making it to 32 years old and asking for help instead of committing suicide. Pt stated I am learning to allow my emotions out, I have cried a lot here, talked more and it does help. Pt reported I am proud of my kids and when I ride my bicycle Ifeel more independent. Pt gave positive feedback to another pt about how important she is and she is has a big heart. Pt said my job is very important to me, and so is living. A: engaged, insightful around his strengthens and weakness, focussed, organized. P: to continue to go to groups. Sandra Dickey RN - 08/12/2009 1301 EDT Active Multi-Disciplinary problems: POTENTIAL FOR HARM TO SELF OR OTHERS [24030] (08/08/09) ALTERATION IN SLEEP [[id number]] (08/08/09) Data: Anxiety Action: Patient is feeling very anxious about his medication taper of Seroquel and his curent doses of Clonopin. Patient was seen by the china and silverware salesperson team and his Clonopin doses were changed. Please see MAR. Patient felt disrespected by the team because he was told to breathe and to relax. He stated that he had just completed a set of jennifer exercises to relax. He stated They should realize that I am doingthe best that I can and when my anxiety gets out of control I loose it all. Response: Patient was given support and listened to and it was pointed out to him that he was seen first by the team per his request. He then stated that he looses perspective when his anxiety builds up. He cancelled his pass today because he felt too anxious. He was able to maintain safe behavior. Medication education given on Clonopin. Sandra Mcbride RN 08/12/2009 1:01 PM Facundo Blackmon MD - 08/12/2009 0946 EDT 08/12/2009 ATTENDING RAG INSPECTOR NOTE REASON FOR HOSPITALIZATION: SI. HOSPITAL DAY: LOS: 9 days INTERIM HISTORY: Events of past 24h reviewed with nursing staff. Denies SI or psychotic symptoms. Cooperative. Social and pleasant. Slept through the night. EXAM: A + O X 3. Decreased eye contact. Mild motor slowing. Speech RRR with normal content and prosody, without pressure. Insight/judgment WNL. Affect depressed. BP 112/71 Pulse 67 Temp 35.6 ??C (96.1 ??F) Resp 16 Wt 70.761 kg (156 lb) SpO2 98% ASSESSMENT: Stable. PLAN: Continue current care. Discharge planned for Friday. FACUNDO WELLS MD Attending Psychiatrist china and silverware salesperson Pager [phone] Kyleigh Walden RN - 08/12/2009 0633 EDT Active Multi-Disciplinary problems: POTENTIAL FOR HARM TO SELF OR OTHERS [[id number]] (08/08/09) ALTERATION IN SLEEP [21110] (08/08/09) Data: Pt appeared to sleep well until 629. No c/o pain or discomfort. Action: Maintain on routine observation. Response: Continue to monitor. Kyleigh Walden RN 08/12/2009 6:33 AM Elizabeth Mitchell RN - 08/11/2009 2208 EDT Active Multi-Disciplinary problems: POTENTIAL FOR HARM TO SELF OR OTHERS [69501] (08/08/09) ALTERATION IN SLEEP [62868] (08/08/09) Data: Pt reports doing well. Says he felt his anxiety was controlled better on the scheduled seroquel but says he cannot pay for it outpt. He is going to talk to MD about having klonopin dose raised. Received hs dose of klonopin 0.5mg early at 1915 for anxiety when his 's parents arrived for visit. He is social with others, exercises in his room and was willing to move into room with roommate. Visited with and kids in atrium X[facility]. Future oriented. Action: medications, monitor Response: Pt remains safe on unit. Elizabeth Mitchell RN 08/11/2009 10:09 PM Monique Baltazar RN - 08/11/2009 1630 EDT Active Multi-Disciplinary problems: POTENTIAL FOR HARM TO SELF OR OTHERS [[id number]] (08/08/09) ALTERATION IN SLEEP [41344] (08/08/09) Data: Approx 1130 pt reported feeling stressed and unable to think. Started Klonopin, 1st dose at 1200 with good effect. Pt reported he didn't feel overwhelmed felt ok. Said he has place to live which happens to be across the street from his family where he had once worked. Plans for passes this weekend. Denies SI Action: Offer 1:1 support, encourage group therapy. Offer medications as prescribed. Monitor for safety in the environment of care. Response: Maintained safety. Attending groups. Engages easily 1:1. Monique Baltazar RN 08/11/2009 4:30 PM Chasity Rodriguez MD - 08/11/2009 1006 EDT Architectural Draftsman Progress Note Date: 08/11/09 Chief Complaint/Presenting Problem: THC/EtOH, SI Status: Hospital day 8, Level III, routine Attending: Dr. Aguilar Subjective: This morning Delroy is feeling fairly good, and pleased with the distribution of his Seroquel doses. He is looking forward, with some concern, to several issues related to his anticipated d/c on Friday:moving out of his home (on his daughter's bday) and finding a new place to live (he has a former frie nd/employer he is thinking of asking but finds it humiliating to ask); getting enough work hours next week and money issues; his lack of health insurance and uncertainty about how/when he can be covered (and the expense of his medications, particularly seroquel); his lack of transportation for gettingto out-patient programs/appts. He recounts his apparent pride his ability to stay calm during a conversation with his , during which he found her to be unkind and provocative. Vital Signs: Blood pressure 108/61, pulse 79, temperature 35.8 ??C (96.4 ??F), temperature source Tympanic, resp.rate 16, weight 70.761 kg (156 lb), SpO2 98%. Medications: Citalopram 20 mg qd Ibuprofen 400 mg prn pain Nicotine replacement seroquel 50 mg qam, plus 25 mg prn anxiety/agitation Seroquel XR 200 qhs New Labs/Imaging: None new. Review of Systems: No new complaints. Mental Status Exam: Young, clean-shaven man of small-medium build, appropriately and casually dressed. Reclining on made-up bed. Mood: fair. Affect: mildly anxious, using humor appropriately. Thought process: linear. Thought content: Looking forward to, working towards, but somewhat daunted by discharge and associated arr angements. Denies current SI. No HI. No psychotic symptoms. Alert and oriented. Insight: fair. Judgment: fair, but impulse control uncertain. Assessment: Delroy Khan is a 33 yo man originally from [place], conflictually (separation likely) with two daughters, who reports a history of early- onset, heavy EtOH use, sober for 16 days prior to admission (overal sober for 2 months interrupted by one relapse), and on-going THC use. He also describes depressive and anxiety symptoms, particularly plagued by racing, intrusive, agitating thoughts and SI. These symptoms are likely motivators for his substance use, and also exacerbated by it. His anxiety has improved with seroquel but the medication is prohibitively expensive; clonazepam is a cheaper alternative. Pt working independently and with SW to arrange housing, insurance, and aftercare plans (limited by not having access to a car.) [place] I: Substance-induced mood disorder (r/o BPAD, r/o MDD). EtOH dependence. THC abuse, r/o dependence. Nicotine dependence. R/o ADHD. [place] II: deferred [place] III: None identified. Plan: 1. Anxiety and depressive symptoms with agitation and SI -Taper Seroquel down over next two days. -Start clonazapem .5 qid, with dose-increases toward a total of 3 mg /day over the weekend. -Cont citalopram to 20 mg today -change Wellbutrin XL 150 mg qd to Buproprion to 75 mg bid. -continue to provide supportive therapy 2. EtOH dependence -Encourage sobriety -pt's reports minimal craving so will defer anti-craving agent -coordinate with SW re: out-patient substance treatment and psychiatric care following discharge; working on [facility] and [facility] substance abuse weekly treatment program, depending on patient's transportation access (he's working on this). 3. THC abuse -encourage sobriety 4. Nicotine dependence -nicotine replacement 5. Unit activities/discharge planning -cont routine observation to due continued lack of SI on unit. -passes with family over weekend. -coordinate with SW re: second family meeting and aftercare planning (possibly [facility] and/or [facility] substance counseling; also investigating possibility of referral to resident psychotherapy clinic) Case discussed and plan reviewed with Dr. Jeff Cates M.D. Pager # [phone] I have seen and examined the patient. I agree with the findings and plan of care as documented in the resident's note. I personally spent 45 minutes on this patient, greater than 50% time spent in counseling and/or coordination of care. CHASITY AGUILAR MD Attending, Inpatient Psychiatry, [facility] Cailin Lu - 08/11/2009 0013 EDT Active Multi-Disciplinary problems: POTENTIAL FOR HARM TO SELF OR OTHERS [64773] (08/08/09) ALTERATION IN SLEEP [04624] (08/08/09) Patient Active Problem List Diagnoses Code ??? Suicidal ideation V62.84 ??? Depression 311L Data: Pt sleeping at change of shift. Action: maintained safety while on the unit and continued on routine checks. Pt requested and received Motrin 400 mg for shoulder pain at around 0430. Pt calm and friendly. Pt c/o nightmares tonight. Some nightmares relating to and fears of her cheating on him. Response: Pt remained safe on the unit. Pt slept for about 5 hrs . Will continue to monitor. Moisés Miles RN 08/11/2009 12:13 AM Elizabeth Silverio RN - 08/10/2009 2111 EDT Active Multi-Disciplinary problems: POTENTIAL FOR HARM TO SELF OR OTHERS [10042] (08/08/09) ALTERATION IN SLEEP [22450] (08/08/09) Data: Pt reports doing well today. He likes the change in his seroquel, feels it is helping managinghis anxiety during the day. He complained about his being mean and unsupportive on 1:1. He exercised in his room, social with peers, plays cards and watches tv with others. Action: monitor anxiety, medications as ordered Response: Pt is safe on unit. Reports he is improving. He reports anxiety is more controlled today. Elizabeth Mitchell RN 08/10/2009 9:11 PM Chasity Aguilar MD - 08/10/2009 1317 EDT Architectural Draftsman Progress Note Date: 08/10/09 Chief Complaint/Presenting Problem: THC/EtOH, SI Status: Hospital day 7, Level III, routine Attending: Dr. Aguilar Subjective: This morning Delroy is walking rapid laps around the unit. He reports a good visit with his kids yesterday evening, during which his was civil. He says he is doing well this morning, tends to getmore anxious in the afternoons, and would like to have his Seroquel doses more evenly spread throughout the day. He is open to the idea of another family meeting that would include his in- laws. He expresses the desire to leave by Friday, which is his daughter Zuleima's 5th birthday. Vital Signs: Blood pressure 104/58, pulse 77, temperature 36 ??C (96.8 ??F), resp. rate 16, weight 70.761 kg (156lb), SpO2 96%. Medications: Citalopram 20 mg qd Ibuprofen 400 mg prn pain Nicotine replacement seroquel 50 mg qam, plus 25 mg prn anxiety/agitation Seroquel XR 200 qhs New Labs/Imaging: None new. Review of Systems: No new complaints. Mental Status Exam: Young, clean-shaven man of small-medium build, appropriately and casually dressed. Rapidly walking around unit Cooperative. Speech: mildly rapid, normal volume and tone. Mood: mildly anxious . Affect: congruent. Thought process: linear. Thought content:Becoming more eager for discharge. Denies currentSI. No HI. No psychotic symptoms. Alert and oriented. Insight: fair. Judgment: fair, but impulse control uncertain. Assessment: Delroy Khan is a 33 yo man originally from [facility], conflictually (separation likely) with two daughters, who reports a history of early- onset, heavy EtOH use, sober for 16 days prior to admission (overal sober for 2 months interrupted by one relapse), and on-going THC use. He also describes depressive and anxiety symptoms, particularly plagued by racing, intrusive, agitating thoughts and SI. These symptoms are likely motivators for his substance use, and also exacerbated by it. [place] I: Substance-induced mood disorder (r/o BPAD, r/o MDD). EtOH dependence. THC abuse, r/o dependence. Nicotine dependence. R/o ADHD. [place] II: deferred [place] III: None identified. Plan: 1. Anxiety and depressive symptoms with agitation and SI -Cont Seroquel 50 mg qam (at 11 am), 25 mg at 11 am and 4 pm, and 200 mg qhs. -Cont citalopram to 20 mg today -Continue Wellbutrin XL 150 mg qd. -continue to provide supportive therapy 2. EtOH dependence -Encourage sobriety -pt's reports minimal craving so will defer anti-craving agent (but could re- visit this with him) -coordinate with SW re: out-patient substance treatment and psychiatric care following discharge 3. THC abuse -encourage sobriety 4. Nicotine dependence -nicotine replacement 5. Unit activities/discharge planning -cont routine observation to due continued lack of SI on unit. -30 minute breaks with family -coordinate with SW re: second family meeting and aftercare planning. Case discussed and plan reviewed with Dr. Jeff Sneed. Spring Cates M.D. Pager # [phone] I have seen and examined the patient. I agree with the findings and plan of care as documented in the resident's note. I personally spent 45 minutes on this patient, greater than 50% time spent in counseling and/or coordination of care. CHASITY AGUILAR MD Attending, Inpatient Psychiatry, [facility] Monique Arreola RN - 08/10/2009 4559 EDT Active Multi-Disciplinary problems: POTENTIAL FOR HARM TO SELF OR OTHERS [65121] (08/08/09) ALTERATION IN SLEEP [[id number]] (08/08/09) Data: Continues to report that he becomes anxious around noon time. Said that his morning was ok with taking his scheduled morning Seroquel at 0600. Again pt plans to speak with his MD about changing times of his seroquel. Said he felt ok this afternoon. Denies SI. Aware of some irritability in group today with other pts but held his comments. Understands his anxiety and irritability may be due to his ETOH and MJ recovery. Action: Offer 1:1 support, encourage group therapy. Offer medications as prescribed. Monitor for safety in the environment of care. Response: Maintained safety. Attending groups. Engages easily 1:1. Monique Baltazar RN 08/10/2009 3:58 PM Trisha Temple - 08/10/2009 1224 EDT S/O Pt attended the Life Skills Group and helped read from the Assertive Rights Worksheet and participated in the discussion. Pt stated that he needs to like himself, and to complete the goals that he sets for the day. He has already achieved one of his goals for today. A/ engaged, expressed feelings,inc coping skills, improved mood. P/ to continue to participate eison Lainez - 08/10/2009 0722 EDT Active Multi-Disciplinary problems: POTENTIAL FOR HARM TO SELF OR OTHERS [95491] (08/08/09) ALTERATION IN SLEEP [[id number]] (08/08/09) Data:Pt Very anxious @0630, called ,ordered Pt could have Am meds now , Pt only took seoquel 50 mg po @ 0645 Action: decrease anxiety Response:cont to observe and note Jeison Lainez RN 08/10/2009 7:22 AM Divine Tony RN - 08/09/2009 3106 EDT Suicidal Ideation: Data: [id number]. Pt engaged with peers and staff through the shift. At start of shift pt with Activities Staff member on porch. Pt then met with Attending. Pt with brighter affect and states his mood is better than it has been pt somewhat ruminative about his seroquel and anxiety, but does admit that anxiety was less today and affect is congruent. Pt was ordered a therapeutic pass to meet with family in [facility] for 20 min. Pt was thrilled to see his children. Pt returned 10 minutes late from pass but stated the pass went well. Pt reported some anxiety but then restates that it was no where near where it has been. Pt talked about the close relationship he has with his daughters. Action: Administer medication; routine obs, shift psych assess and nursing 1:1, encouraged pt to verbalize methods to reduce anxiety and occupy mind from ruminative thoughts. Response: Pt remained safe with - SI/HI, no PRNs (other than nicotine) Pt engaged with peer teachingyoga poses. Divine Cleary RN 08/09/2009 9:08 PM Jasmin Dukes - 08/09/2009 0528 EDT Focus Group: S/O: Pt attended group, completed pt satisfaction questionairre, and expressed gratitude for everything that is provided for himself and all of the patients on this unit including good food, caring staff, comfortable chairs and beds, etc. Pt asked to speak with this securities underwriter individually after group andvented about frustration with one peer in particular who was complaining quite a bit during the group. Pt's frustration validated and pt encouraged to focus on himself instead of worrying about others. A: alert, engaged, grateful for care he is receiving here, anxious and frustrated at times re: behavior and attitude of a peer. P: Continued participation in therapeutic groups. Charisse Zambrano - 08/09/2009 9583 EDT Leisure Group: S/O: Pt active in group, making origami sailboats for his children. Pt socialized with peers and staff as he worked. At one point he started to say that he was doing okay, but then stopped himself and said instead nope, I'm not going to say that, b/c every time I say I'm doing well, neo ething bad happens. It was pointed out to pt that, that was a distorted thought, and we came up with some more rational thinking and pt acknowledged that he would say those statements to other peers Im good with the sermons, but not in taking my own advice. A: Pt engaged, increasing awareness and i nsight oriented. Affect slightly restricted. P: To continue to participate in groups. Monique Arreola, KATELYN - 08/09/2009 9713 EDT Active Multi-Disciplinary problems: POTENTIAL FOR HARM TO SELF OR OTHERS [[id number]] (08/08/09) ALTERATION IN SLEEP [[id number]] (08/08/09) Data: Reports he is most concerned about his anxiety. States mornings go well with the Seroquel but gets panicky around noon time. Later this morning he reported feeling upset and experiencing racing thoughts after his meeting with the med student. Says he is always anxious or sad after his meetings. Pt plans to speak with his MD this afternoon about his medications. Requested and received Seroquel at 1320. Denies SI. Acknowledges that he can't think about his family right now, overwhelmed by his thoughts. States he plans to see his children this afternoon in the foyer, outside the unit. Dr Aguilar aware of plan. Action: Offer 1:1 support, encourage group therapy. Offer medications as prescribed. Monitor for safety in the environment of care. Response: Reports he felt a bit better but not entirely well from the prn of Seroquel. Maintained safety. Monique Baltazar RN 08/09/2009 2:53 PM Chasity Rodriguez MD - 08/09/2009 1056 EDT Architectural Draftsman Progress Note Date: 08/09/09 Chief Complaint/Presenting Problem: THC/EtOH, SI Status: Hospital day 6, Level IV, frequent Attending: Dr. Aguilar Subjective: This morning Delroy speaks with the medical student and this resident at length about what it was like when he was drinking and smoking cigarettes and marijuana heavily, hiding and lying about the EtOH and cigarette use to his , and continually promising himself that he would quit the next day. He describes himself as the alem of bull-shitting based on his ability to tell himself and other's what he/they want to hear. He initially states he is feeling OK, but reports sudden onset of intense anxiety after talking about his addictive behaviors. He continues to struggle with his feelings about his . He reports receiving useful advice from his AA sponsor about refraining from immediate reactions (particularly feeling hurt/angry) when in conflict with other people, jessy his . He is able to acknowledge that his 's current behavior is based on years of poor behavior and lies about substance use on his part. Vital Signs: Blood pressure 126/75, pulse 74, temperature 36.2 ??C (97.2 ??F), temperature source Tympanic, resp.rate 16, weight 70.761 kg (156 lb), SpO2 100%. Medications: Citalopram 20 mg qd (decreased to 20 mg qam today) Ibuprofen 400 mg prn pain Nicotine replacement seroquel 50 mg qam, 200 mg qhs, plus 25 mg prn anxiety/agitation New Labs/Imaging: None new. Review of Systems: Intermittent head/neck ache, partially relieved by ibuprofen. Mental Status Exam: Young, clean-shaven man of small-medium build, appropriately and casually dressed. Some fidgeting. Cooperative, forthcoming, appropriate eye contact. Speech: less rapid than previously, normal volume and tone. Mood: anxious. Affect: congruent. Thought process: goal-directed with continued mild distract ibility. Thought content: Ruminating on past addictive behaviors. Denies current SI. No HI expressed. No psychotic symptoms. Alert and oriented. Insight: fair. Judgment: fair, but impulse control uncertain. Assessment: Delroy Khan is a 33 yo man originally from [facility], conflictually (separation likely) with two daughters, who reports a history of early- onset, heavy EtOH use, sober for 16 days prior to admission (overal sober for 2 months interrupted by one relapse), and on-going THC use. He also describes depressive and anxiety symptoms, particularly plagued by racing, intrusive, agitating thoughts and SI. These symptoms are likely motivators for his substance use, and also exacerbated by it. He continues to struggle with overwhelming anxiety; strong feelings about the likely end of his marriage; and his hopes and doubts about continued sobriety. His tendency toward wishful thinking, his acute life stressors, and his anxiety are all significant challenges to his sobriety. [place] I: Substance-induced mood disorder (r/o BPAD, r/o MDD). EtOH dependence. THC abuse, r/o dependence. Nicotine dependence. R/o ADHD. [place] II: deferred [place] III: None identified. Plan: 1. Anxiety and depressive symptoms with agitation and SI -Cont Seroquel 50 mg qam and 200 mg qhs. Add 25mg BID at noon and 1800. Much daytime anxiety. D/c prns given the issue with substance abuse. . -Cont citalopram to 20 mg today -Continue Wellbutrin XL 150 mg qd. -will discuss potential pharmacologic alternatives with attending. -continue to foster therapeutic alliance and provide supportive therapy 2. EtOH dependence -Encourage sobriety -pt's reports minimal craving so will defer anti-craving agent (but could re- visit this with him) -coordinate with SW re: out-patient substance treatment and psychiatric care following discharge 3. THC abuse -encourage sobriety 4. Nicotine dependence -nicotine replacement 5. Unit activities/discharge planning -change from frequent to routine observation to due continued lack of SI on unit. -30 minute breaks with family -coordinate with SW re: second family meeting and aftercare planning. Case discussed and plan reviewed with Dr. Jeff Cates M.D. Pager # [phone] I have seen and examined the patient. I agree with the findings and plan of care as documented in the resident's note. I personally spent 45 minutes on this patient, greater than 50% time spent in counseling and/or coordination of care. CHASITY AGUILAR MD Attending, Inpatient Psychiatry, [facility] Jeison Perez - 08/09/2009 0621 EDT Active Multi-Disciplinary problems: POTENTIAL FOR HARM TO SELF OR OTHERS [58604] (08/08/09) ALTERATION IN SLEEP [13815] (08/08/09) Data: Pt asleep 0200 to 0500 * Action: PRN of seoquel 25 mg po @ 0515 Response: Pt cont Work marital issues. Jeison Lainez RN 08/09/2009 6:21 AM Elizabeth Silverio RN - 08/08/2009 1840 EDT Active Multi-Disciplinary problems: POTENTIAL FOR HARM TO SELF OR OTHERS [95191] (08/08/09) ALTERATION IN SLEEP [23132] (08/08/09) Data: Pt is attending groups and social with others. He reports feeling very angered by his today who he felt was negative and hostile toward tx team in family mtg. He says she called him later and referred to MD as pill pusher, and made negative comments about others in the mtg. He says that he can't stand to be around her anymore and this upsets him b/c he doesn't normally feel such intense dislike for people. Says she is a good mother to his children but she thinks she is better than him andeveryone else. Pt met with his AA sponsor, said it went well but was shaking and having c/o severe anxiety at the end of it. Asked for prn seoquel but prn doses are scheduled 8 hrs apart. Could not reach MD by page. Pt worked on self-soothing in his room alone but reading and writing. Received hs medications at 1999 with 400mg ibuprofen for 7/10 neck pain. Action: 1:1, monitor, medications as ordered Response: Pt is able to remains safe on unit. Elizabeth Mitchell RN 08/08/2009 6:41 PM Chasity Aguilar MD - 08/08/2009 1830 EDT ATTENDING PROGRESS NOTE Date: 08/07/09 Chief Complaint/Presenting Problem: THC/EtOH, SI Subjective: Met with patient and his for an hour in a couple session. Pt was very anxious and often described feeling overwhelmed by his multiple thoughts during the meeting. Poor eye-contact with his . was more forthright if not bold in her statement with less overt empathy for his emotional state.She reports difficulty with communication in which they both become defensive and pt shuts down withanxiety that are longstanding in their marriage. She also has difficulty with trust as he has lied repeatedly over the years about using (alcohol, cigarettes, pills). He says he will clean up and get ahigher paying job with benefits, then relapses with EtOH or doesn't do what he has promised. She says she and her parents think he should be out of the house for 6 months until he can show he has made some lasting changes. She seems concerned that we are just doping him up here and thinks he needs therapy. I explained our current diagnoses and our sense of his treatment needs going forward. I expres sed concerns as to whether he will be safe from SI/SA outside the home, but that the home environment (given ' anger) likely not supportive either. does acknowledge considerable resentment built up over the years but at one point said she has not been a bitch. We discussed his likely Generalized Anxiety Disorder and how he has self-medicate with alcohol. Needs to feel strongly attached andhas difficulty expressing himself to his out of fear of loss of her. Pt sobbed when he described that this feeling he has with his is the same as when he decided to move out of his mother's home (age 14,13) after his SF was being verbally abusive. Also, hx of him staying out of school for one year out of extreme anxiety about homework and school expectations also around that age. He remembers little of the therapy his family sent him to during that time. See medical student note for more details about his current mood and status. Vital Signs: Blood pressure 115/57, pulse 72, temperature 36 ??C (96.8 ??F), temperature source Tympanic, resp. rate 16, weight 70.761 kg (156 lb), SpO2 97%. Medications: Citalopram 20mg qd Ibuprofen 400 mg prn pain Nicotine replacement seroquel 50 mg qam, 200 mg qhs, plus 25 mg prn anxiety/agitation New Labs/Imaging: None new. Review of Systems: No new complaints. Mental Status Exam: Young, clean-shaven man of small-medium build, in hospital pants and t-shirt. Smiles socially. In couples session, fidgets or very still in chair. Anxious. Denies current SI. No HI expressed. No psychotic symptoms. Alert and oriented. Insight: fair. Judgment: fair, Assessment: Delroy Khan is a 33 yo man originally from [facility], conflictually (separation likely) with two daughters, who reports a history of early- onset, heavy EtOH use, sober for 16 days prior to admission (overal sober for 2 months interrupted by one relapse), and on-going THC use. He also describes depressive and anxiety symptoms, particularly plagued by racing, intrusive, agitating thoughts and SI. These symptoms are likely motivators for his substance use, and also exacerbated by it. Continues to report benefit from Seroquel. Tolerating Celexa-Wellbutrin cross-taper. Engaging in treatment, with increased ability to express affect that reflects his negative mood. Acute suicidality hasabated. Patient interested in participating in discharge and aftercare planning. [place] I: Substance-induced mood disorder (r/o BPAD, r/o MDD). EtOH dependence. THC abuse, r/o dependence. Nicotine dependence. R/o ADHD. [place] II: deferred [place] III: None identified. Plan: 1. Anxiety and depressive symptoms with agitation and SI -Cont Seroquel 50 mg qam and 200 mg qhs, plus 25 mg prn agitation, which appears helpful at this dose. -Continue citalopram to 20 mg -Continue Wellbutrin XL 150 mg qd -continue to foster therapeutic alliance and provide supportive therapy 2. EtOH dependence -Encourage sobriety -pt's reports minimal craving so will defer anti-craving agent (but could re- visit this with him) -coordinate with SW re: out-patient substance treatment and psychiatric care following discharge 3. THC abuse -encourage sobriety I have seen and examined the patient. I personally spent 70 minutes on this patient, greater than 50% time spent in counseling and/or coordination of care. CHASITY AGUILAR MD Attending, Inpatient Psychiatry, [facility] Jasmin Dukes - 08/08/2009 1626 EDT Open Art: S/O: Pt attended full hour of group and continued to color a picture. Pt talked about how he felt great this morning and was having a good day but then everything went wrong (pt had stressful family meeting with his ). Pt stated that every time he thinks things are going well I get kicked in the privates and concluded that he should just not think positively anymore because he just gets built up for a further disappointment. Pt reported group was helpful in giving him a break after a stressfulday. A: Alert, organized, sad, discouraged, sharing his feelings, and reporting benefit from group. P: Continued participation in therapeutic groups. Sav Connelly - 08/08/2009 1442 EDT Inpatient Psychiatry Daily Progress Note Admit Date: 08/03/2009 Hospital day: LOS: 5 days Date of Service: 08/08/2009 Legal Status: Legal status: Voluntary Observation Level: Observation / visual check: Routine (Q hour day / chelle, Q 1/2 hour night) Locus/Risk of Harm: Current locus of harm: 3 Subjective / Chief Complaint: Mr. Khan is a 33 y/o male with a history of depression, polysubstance abuse who is here after a one day stay at [facility] where he was admitted because of suicidal thoughts and a self-made noose that he had intended on using. This was all in the face of 15 daysof sobriety from alcohol (he originally quit on June 05 and then had a relapse on July 18) and major familial stressors which drove him to this point. He has a history of SI, but had never gotten to this point in all of his thoughts/attempts. Clinical Update: Mr. Khan and I had a chat this morning that centered mostly around the relationship he had with his . He describes this as one that has been trying at times, but great at others. However, since his drinking has really gotten out of control (the past 4-5 years), things have been very difficult between the two of them. We discussed the importance of communication in every relationship, especially a marriage. He endorsed this idea but did vocalize that things have always struggled in that arena with him and his . We also chatted about what it must be like being to an alcoholic. Thiswas a difficult, speculative conversation, but it was an important one. Delroy admitted he has put his through hell over the past 7 years, and she really means a lot to me. Ever since he can remember, there has been a hierarchy in his life where it appears that his drugs (alcohol, cigarettes, marijuana) were more important than his . It would be very easy for his to think this at the very least. Mr. Khan further endorsed a good deal of dishonesty that happened in his marriage. He admits to stealing while in [place] and also doing everything he could to get as much alcohol as he could, nomatter what was standing in his way. However, he does say there have been no non-substance lies. He states he has been monogamous since marrying her and she clearly means a great deal to him, as evidenced by his mood/affect when discussing her. This impending separation is a source of consternation on his part and the family meeting that is to take place this morning will be effective in giving this securities underwriter and the treatment team some insight into their relationship. Mr. Khan did have a large bowel movement last night and this was the first one he has had upon admission. He did not complain of a headache this morning and his anxiety was much better controlled today than yesterday. He is feeling well and is excited over the prospect of having a good day. Past family/social history: Family and social history are both unchanged. Current hospital medications Medication Route Frequency ??? citalopram (CELEXA) tablet 20 mg Oral DAILY ??? nicotine (NICODERM CQ) patch Removal Transdermal QHS ??? nicotine (NICODERM CQ) 21 mg/24 hr patch 1 Patch Transdermal DAILY ??? quetiapine (SEROQUEL) tablet 25 mg Oral Q8H PRN ??? buPROPion (WELLBUTRIN XL) XL tablet 150 mg Oral DAILY ??? quetiapine (SEROQUEL XR) XR tablet 200 mg Oral QHS ??? quetiapine (SEROQUEL) tablet 50 mg Oral DAILY ??? senna (SENOKOT) tablet 1 Tab Oral QHS ??? PEG 3350-Electrolytes (MIRALAX) packet 17 g Oral DAILY ??? docusate sodium (COLACE) capsule 100 mg Oral BID PRN ??? ibuprofen (MOTRIN) tablet 400 mg Oral Q6H PRN ??? nicotine (NICOTROL) 10 mg inhaler 1 Inhaler Inhalation Q2H PRN ??? nicotine inhaler (delivery device) Inhalation PRN Review of Systems: Important items have been noted in the above clinical update. Objective / Physical Exam: Mental Status Exam: Mr. Khan is a 33 y/o caucausian male who is laying in bed in appropriate hospital clothing. He isrelaxed and the twitching in his lower extremities seems to have abated. His speech has normal RRV. His mood is good and upbeat, while his affect is light and happy. This is becoming more congruent with his mood. He currently has no SI, but did upon admission. His thought process is goal- oriented with mild tangentiality. He is oriented x4 and his memory is intact. His abstraction seems intact but not formally tested. Judgment and insight are mildly intact in that he knows he is sick and recognizesthe life he now is leading is difficult and is the direct result of his addiction. Vital Signs BP: 115/57 mmHg Pulse: 72 Resp: 16 Temp: 36 ??C (96.8 ??F) SpO2: 97 % Physical Exam: No physical exam was completed today Data Review: Labs: No results found for this or any previous visit (from the past 24 hour(s)). Other studies: Assessment/Problems: Mr. Khan is a 33 y/o male with a history of polysubstance abuse, depression controlled with citalopram who is presenting with increased SI after creating a noose at [facility]. This increased SI is most likely due to the social stresses he is currently experiencing. He has not only recently given up drinking completely (last alcohol consumption was on 07/18/2009), but he is also facing the end of hisseven year marriage. He continues to smoke marijuana and cigarettes, but the alcohol has been a major part of his life for the past 18 years and this is most likely leading to his decompensated state. Furthermore, his depression is potentially not well-controlled. [place] I: Depression NOS, alcohol dependence, polysubstance abuse [place] II: Deferred [place] III: Deferred [place] IV: impending divorce, living arrangements [place] V: 25 (admission), 42 (previous year) Plan: Depression/fluctuating moods: recently controlled with 60 mg of citalopram - Citalopram 20 mg PO QD (decreased from 60 mg QD to address akathisia) - Quetiapine 200 mg PO QHS (XR), 25 mg q12h for pain, 50 mg PO QD - continue to provide supportive therapy and establishing a therapeutic alliance Alcohol dependence: has currently been sober for 21 days - Bupropion 150 mg PO BID - consider starting naltrexone - reports cravings as minimal - coordination with social services manager to establish rigorous treatment (CBT) Nicotine dependence/withdrawal: has been a smoker since moving to the - Nicotine 21 mg/24 hour patch, 1 per day - Nicotine 10 mg inhaler, q2h PRN - Nicotine inhaler, PRN Tetrahydrocannabinol abuse: has been an active abuser since his early 20s - encourage sobriety Constipation: did have his first BM last night, continue the below recommendations until he has become more regular - senna tablet PO QHS, PEG 335-Electrolytes packet 17g PO QD Discharge plans: complicated by family issues and plans for separation from - potential collaboration with social services manager to set up a family meeting - currently lives with 's parents The following were discussed with the patient: all plans were discussed with the patient. Discharge Plan: Uncertain at this time, most likely to home at the beginning of next week if all pharmacologic adjustments go well Sav Lucia, MS-III, pager #[phone] Sandra Dickey RN - 08/08/2009 1557 EDT Active Multi-Disciplinary problems: POTENTIAL FOR HARM TO SELF OR OTHERS [64213] (08/08/09) ALTERATION IN SLEEP [67125] (08/08/09) Data: Potential for harm to self or others. Action:Patient has maintained safe behavior but has been very anxious and tearful following family team meeting. At 12:49 hrs he received Seroquel 25 mg. For anxiety and Motrin 400 mg. For back and shoulder pain. He was very upset after the family team meeting because he could not be home for his daughter's birthday; he felt that his was not understanding him; and he was upset about his own emotions during the meeting. He felt very vulnerable and fragile. He spent some time crying while he was processing these feelings with the nurse. Response: Patient is maintaining safe behaviors. Responding positively to support following family team meeting. Sandra Mcbride RN 08/08/2009 2:33 PM Ana Reinoso - 08/08/2009 1231 EDT Social Work Progress Note Intervention/Service: Couples, family, work and Supportive Therapy Hour meeting with Delroy and his Lexi along with Dr. Aguilar and MS TRAM Lucia. Dr. Aguilar provided education about SA and anxiety issues. Lexi provided some history of his substance use. She states she does not know what to believe (secondary to Delroy' lack of honesty about his substance use to her) and she does not fully understand what his anxiety. Lexi and her family have decided that Delroy can not return home for now. It is unclear what the time frame is, but she mentioned at least [address] Aguilar expressed her concern over his risk of suicide. Discussed options for SA treatment- [facility] vs residential and [facility]. Will have another meeting prior to d/c. NISA Linn 1963 Sandra Dickey RN - 08/07/2009 7887 EDT No multi-disciplinary problems found Data: Feelings of Emptiness Action: Patient stated that he felt depressed and empty. He did not know why he felt that way but hehoped that the medication would help. He states that engaging in specific activities helps and walking helps. He has maintained safe behavior.At 13:43 he was medicated for anxiety and headache of 6. Hereceived Motrin 400 mg. And Seroquel 25 mg. Results are pending. Response:Patient has been very pleasant. The Celexa was changed to be given in the morning per patient request. Medication is helping to control patient's anxiety. Patient has maintained safe behavior on the unit. CIWA is discontinued Sandra Mcbride RN 08/07/2009 2:57 PM Jasmin Dukes - 08/07/2009 1456 EDT Seeking Safety Group: S/O: Pt arrived late to group but quickly became engaged in review of handouts and discussion of topic of recovery thinking, specifically rethinking tools that he can use to help himself in his recovery efforts. A: Alert, engaged, reporting materials and discussion helpful to him, minimal eye-contact. P: Continued participation in therapeutic groups. Sav Connelly - 08/07/2009 1255 EDT Inpatient Psychiatry Daily Progress Note Admit Date: 08/03/2009 Hospital day: LOS: 4 days Date of Service: 08/07/2009 Legal Status: Legal status: voluntary Observation Level: Observation / visual check: Q 15 minutes (frequent) Locus/Risk of Harm: Current locus of harm: 3 Subjective / Chief Complaint: Mr. Khan is a 33 y/o male with a history of depression, polysubstance abuse who is here after a one day stay at [facility] where he was admitted because of suicidal thoughts and a self-made noose that he had intended on using. This was all in the face of 15 daysof sobriety from alcohol (he originally quit on June 05 and then had a relapse on July 18) and major familial stressors which drove him to this point. He has a history of SI, but had never gotten to this point in all of his thoughts/attempts. Clinical Update: When chatting with Mr. Khan this morning, it was quickly noted that is much more anxious today than I have seen him in the past. When asked about this, he talked a good deal about the dissolution ofhis marriage and what that will mean for himself, his and his children. He is very concerned about the relationship he will have with his children when this is all over. Furthermore, his family isreturning from their vacation to [place] today, which is likely the source of his increased anxiety today. When the idea of a family meeting was brought up, he immediately stated that was a good idea, but it makes me really, really nervous. His major source of anxiety was surrounding the children and if they would be at the meeting or not. I assured him it would not be in anyone's best interest from them to be there, so this seemed to quell some of his fears surrounding this event. After some more thought, he discussed how this could only be a good thing because he needs others there when he talks to . She seems to only want to fight and does so by constantly blaming him for things that have gone wrong in both his own life and their life as a couple. It seems to be a destructive relationship at this point, with his taking the blame for many things that have gone wrong. She never seems to accept responsibility for the current state of things. He also acknowledged that she must be complimented because he could never imagine what it is like being to an alcoholic. This was one of the few positive things he has said about his in a long time, so it deserves some merit. We then discussed the overwhelming nature of where his life is at this point. This seems to be a source of anxiety at baseline for him and since his anxiety was increased today, it seemed the opportunity to discuss it. We chatted about how focusing on the larger picture might serve to overwhelm him, so taking things day by day would be the best for him. Staying away from alcohol, marijuana and cigarettes will be a constant daily goal. He agrees to this, but does admit that the cigarettes scare him. I inquired further about this, and it seemed that this would be the hardest thing for him to stay away from. He admitted no further cravings for alcohol and marijuana. I owe this to his decreased intake of these two substances over the past two months. 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 It appears that the chats Mr. Khan and I have are therapeutic. He really enjoys them and appreciates all of the information we have for him. He continues to state that we know the most about what is going on with him, and he fully trusts us. His mood and affect are in continuing to become more congruent. He is beginning to see this will be a long, arduous journey, but is committed to this success. His headache has dissipated and he has not had a bowel movement in 4 days. Past family/social history: Family and social history are both unchanged. Current hospital medications Medication Route Frequency ??? citalopram (CELEXA) tablet 20 mg Oral DAILY ??? nicotine (NICODERM CQ) patch Removal Transdermal QHS ??? nicotine (NICODERM CQ) 21 mg/24 hr patch 1 Patch Transdermal DAILY ??? quetiapine (SEROQUEL) tablet 25 mg Oral Q8H PRN ??? buPROPion (WELLBUTRIN XL) XL tablet 150 mg Oral DAILY ??? quetiapine (SEROQUEL XR) XR tablet 200 mg Oral QHS ??? quetiapine (SEROQUEL) tablet 50 mg Oral DAILY ??? senna (SENOKOT) tablet 1 Tab Oral QHS ??? PEG 3350-Electrolytes (MIRALAX) packet 17 g Oral DAILY ??? docusate sodium (COLACE) capsule 100 mg Oral BID PRN ??? ibuprofen (MOTRIN) tablet 400 mg Oral Q6H PRN ??? nicotine (NICOTROL) 10 mg inhaler 1 Inhaler Inhalation Q2H PRN ??? nicotine inhaler (delivery device) Inhalation PRN Review of Systems: Important items have been noted in the above clinical update. Objective / Physical Exam: Mental Status Exam: Mr. Khan is a 33 y/o caucausian male who is laying in bed in appropriate hospital clothing. He isrelaxed and the twitching in his lower extremities seems to have abated. His speech has normal RRV. His mood is all right, while his affect is light and happy. This is becoming more congruent with his mood. He currently has no SI, but did upon admission. His thought process is goal- oriented with mild tangentiality. He is oriented x4 and his memory is intact. His abstraction seems intact but not formally tested. Judgment and insight are mildly intact in that he knows he is sick and recognizes the life he now is leading is difficult and is the direct result of his addiction. Vital Signs BP: 118/68 mmHg Pulse: 74 Resp: 20 Temp: 36.2 ??C (97.2 ??F) SpO2: 96 % Physical Exam: No physical exam was completed today Data Review: Labs: No results found for this or any previous visit (from the past 24 hour(s)). Other studies: Assessment/Problems: Mr. Khan is a 33 y/o male with a history of polysubstance abuse, depression controlled with citalopram who is presenting with increased SI after creating a noose at [facility]. This increased SI is most likely due to the social stresses he is currently experiencing. He has not only recently given up drinking completely (last alcohol consumption was on 07/18/2009), but he is also facing the end of hisseven year marriage. He continues to smoke marijuana and cigarettes, but the alcohol has been a major part of his life for the past 18 years and this is most likely leading to his decompensated state. Furthermore, his depression is potentially not well-controlled. [place] I: Depression NOS, alcohol dependence, polysubstance abuse [place] II: Deferred [place] III: Deferred [place] IV: impending divorce, living arrangements [place] V: 25 (admission), 40 (previous year) Plan: Depression/fluctuating moods: recently controlled with 60 mg of citalopram - Citalopram 20 mg PO QD (decreased from 60 mg QD to address akathisia) - Quetiapine 200 mg PO QHS (XR), 25 mg q12h for pain, 50 mg PO QD (cross taper between the two) - continue to provide supportive therapy and establishing a therapeutic alliance Alcohol dependence: has currently been sober for 17 days - Bupropion 150 mg PO BID - reports cravings as minimal - coordination with social services manager to establish rigorous treatment (CBT) Nicotine dependence/withdrawal: has been a smoker since moving to the - Nicotine 21 mg/24 hour patch, 1 per day - Nicotine 10 mg inhaler, q2h PRN - Nicotein inhaler, PRN Tetrahydrocannabinol abuse: has been an active abuser since his early 20s - encourage sobriety Constipation: has not had a bowel movement since admission (08/03/2009) - senna tablet PO QHS, PEG 335-Electrolytes packet 17g PO QD Discharge plans: complicated by family away on vacation and plans for divorce - potential collaboration with social services manager to set up a family meeting The following were discussed with the patient: all plans were discussed with the patient. Discharge Plan: Uncertain at this time, most likely to home at the beginning of next week if all pharmacologic adjustments go well Sav Lucia, MS-III, pager #[phone] Chasity Rodriguez MD - 08/07/2009 1035 EDT Architectural Draftsman Progress Note Date: 08/07/09 Chief Complaint/Presenting Problem: THC/EtOH, SI Status: Hospital day 4, Level IV, frequent Attending: Dr. Aguilar Subjective: This morning Delroy Khan describes feeling anxious, overwhelmed, and somewhat discouraged about the [id number] he has been experiencing (particularly the downs, accompanied by on-going tearfulness). He reports re-reading a suicide note that he wrote prior to admission at [facility], which had a strongeffect on him: it reminded him of what a serious state he was in prior to admission (truly suicidal)and revealed to him that he has experienced some improvement in not feeling acutely suicidal since entering the hospital. He makes thoughtful comments about his ambivalence toward the help he receives here, acknowledging his need and gratitude, but also expressing a desire to regain some autonomy and move toward making plans for himself (I reflected and acknowledged the validity of both feelings). Hereports on-going benefit from Seroquel in helping his anxiety. I provided reassurance that his mood changes and continued episodes of feeling depressed and emotionally raw are understandable and to be expected given his recent withdrawal/sobriety, his marital crisis, and his likely underlying mood disorder. Delroy mentions wanting to keep a journal of his feelings, and I offered to provide him with one. Delroy reports that his in-laws have visited him and are supportive. He continues to express highly negative feelings about his and her treatment of him. We reviewed his medication changes, and he appeared to understand them. Vital Signs: Blood pressure 118/68, pulse 74, temperature 36.2 ??C (97.2 ??F), temperature source Tympanic, resp.rate 20, weight 70.761 kg (156 lb), SpO2 96%. Medications: Citalopram 40 mg qd (decreased to 20 mg qam today) Ibuprofen 400 mg prn pain Nicotine replacement seroquel 50 mg qam, 200 mg qhs, plus 25 mg prn anxiety/agitation New Labs/Imaging: None new. Review of Systems: No new complaints. Mental Status Exam: Young, clean-shaven man of small-medium build, in hospital pants and t-shirt. Slightly fidgeting, but less so than last week. Cooperative, easily engaged, good eye contact. Speech: continues to be fairly rapid but not pressured, normal volume and tone. Affect: More congruent with mood, with some use of humor but more openly-expressed sadness and tears. Thought process: goal-directed with continued mild distractibility. Thought content: Acknowledging seriousness of situation; expressing ambivalence regarding reliance on others of in-patient experience. Expressing interest in exploring aftercare planning. Denies current SI. No HI expressed. No psychotic symptoms. Alert and oriented. Insight: fair. Judgment: fair, but impulse control uncertain. Assessment: Delroy Khan is a 33 yo man originally from [facility], conflictually (separation likely) with two daughters, who reports a history of early- onset, heavy EtOH use, sober for 16 days prior to admission (overal sober for 2 months interrupted by one relapse), and on-going THC use. He also describes depressive and anxiety symptoms, particularly plagued by racing, intrusive, agitating thoughts and SI. These symptoms are likely motivators for his substance use, and also exacerbated by it. Continues to report benefit from Seroquel. Tolerating Celexa-Wellbutrin cross-taper. Engaging in treatment, with increased ability to express affect that reflects his negative mood. Acute suicidality hasabated. Patient interested in participating in discharge and aftercare planning. [place] I: Substance-induced mood disorder (r/o BPAD, r/o MDD). EtOH dependence. THC abuse, r/o dependence. Nicotine dependence. R/o ADHD. [place] II: deferred [place] III: None identified. Plan: 1. Anxiety and depressive symptoms with agitation and SI -Cont Seroquel 50 mg qam and 200 mg qhs, plus 25 mg prn agitation, which appears helpful at this dose. -Decrease citalopram to 20 mg today -Continue Wellbutrin XL 150 mg qd; consider increasing to 200 prior to discharge. -continue to foster therapeutic alliance and provide supportive therapy 2. EtOH dependence -Encourage sobriety -pt's reports minimal craving so will defer anti-craving agent (but could re- visit this with him) -coordinate with DOMO re: out-patient substance treatment and psychiatric care following discharge 3. THC abuse -encourage sobriety 4. Nicotine dependence -nicotine replacement 5. Unit activities/discharge planning -change from frequent to routine observation to due continued lack of SI on unit. -coordinate with SW re: potential family meeting and aftercare planning. Case discussed and plan reviewed with Dr. Jeff Cates M.D. Pager # [phone] I have seen and examined the patient. I agree with the findings and plan of care as documented in the resident's note. I personally spent 60 minutes on this patient, greater than 50% time spent in counseling and/or coordination of care. CHASITY AGUILAR MD Attending, Inpatient Psychiatry, FA RINETJeison Lainez - 08/07/2009 0508 EDT No multi-disciplinary problems found Data:Pt awake from 0130 to 0330, CIWA 2 @ 0200, Action: given Prn of SEROQUEL 25 mg po@ 0210 Response:cont to observe and note. Jeison Lainez RN 08/07/2009 5:10 AM Jasmin Dukes - 08/06/2009 1652 EDT Open Art: S/O: Pt in his room speaking to a nurse when this securities underwriter invited him to group. Pt reluctant to engage in group activity initially but with some encouragement from nurse and AT pt attended the group. Hewas visibly shaking when sitting on his bed in his room and once in the art room and engaged in discussion and working on art activity pt no longer shaking and also reporting that he was feeling much more relaxed. He attributed this to the Seroquel he had taken as prescribed. Pt also received feedbackthat engaging in group as a distraction from all of the things he was thinking and worrying about alone in his room may also be helping him to feel better. Pt left group to visit with his In-Laws who came to see him. A: Alert, engaged, significantly decreased anxiety sxs. P: Continued participation in therapeutic groups. Renetta Barron - 08/06/2009 1502 EDT No multi-disciplinary problems found Data: Pt paced hallways in am, explaining that walking rapidly would prevent him from feeling depressed. Pt requested and received 25mg po Seroquel for increase in anxiety. Pt reports difficulty in coping without his daily marijuana use. Pt stated, I just hate my head. Action: Encourage pt to employ effective coping strategies to reduce anxiety, provide safety and stabilization Response:Pt reports hopelessness and helplessness related to his marriage dissolving. Pt expresses interest in residential drug/etoh treatment. Renetta Krishnamurthy RN 08/06/2009 3:02 PM Zenia Trotter MD - 08/06/2009 0815 EDT 08/06/2009 ATTENDING RAG INSPECTOR NOTE REASON FOR HOSPITALIZATION: ETOH Dependence and Mood disorder HOSPITAL DAY: LOS: 3 days INTERIM HISTORY: Events of past 24h reviewed with nursing staff. Nightmares (REM rebound from THC withdrawal is likely). Suicidal ideations mostly in the evenings. Interrupted sleep. CIWA scores remainlow. Restlessness. Fidgety. Constipation. Subjective and objective benefit from Seroquel. EXAM: Less hypomanic defense. Anxiety. Restlessness. Intrusive thoughts are worse in evenings but lessened this am. Affect clearly more congruent with mood today. No suicidal ideation this am. Able to apply learned coping skills. No auditory hallucinations. BP 125/70 Pulse 77 Temp(Src) 35.9 ??C (96.6 ??F) (Tympanic) Resp 18 Wt 70.761 kg (156 lb) SpO2 99% ASSESSMENT: Mood disorder nos in context of heavy substance abuse/ dependence. R/o BPAD r/o ADHD PLAN: Decrease Celexa to 20 mg daily and administer in am instead of evening, in an effort to taper it off. Gradually increase Wellbutrin with target dose between 200 mg and 300 mg daily. Continue titration of Seroquel. Will likely require and tolerate between 400- 500 mg daily. Give higher dose Nicoderm patch (21 mg instead of 14 mg). Will need more intensive substance abuse treatment program upon discharge. Family meeting also need to take place when family returns to [facility]. Total time spent: 25 minutes where greater than 50% of time was spent in counseling and coordinationof care. ZENIA THOMPSON MD Attending Psychiatrist china and silverware salesperson Pager [phone] ailin Hernandez - 08/06/2009 0009 EDT No multi-disciplinary problems found There is no problem list on file for this patient. Data: pt sleeping at change of shift. Action: Maintained safety while on the unit and continue on frequent checks. Pt continues on CIWA every 4 hrs. Pt with passive SI stating that he thinks about it but will not act upon it because of hischildren. CIWA at 0030 and 0430 with scores of zero. Had to wake pt to do CIWA. Pt was calm and friendly. Response: Pt remained safe on the unit. Pt slept for about 5.5 hrs woke once for about 1 hrs c/o nighmares . Will continue to monitor. Moisés Miles RN 08/06/2009 12:09 AM Deion Sanchez APRN - 08/05/2009 194 EDT No multi-disciplinary problems found Data: Pt restless and anxious at the change of shift. CIWA score= 7 at 1530. Tells me that today he has been panaroid about people watching him eat. No episodes of tearfulness. Positive suicidal ideation but denies any intent due to the impact it would have on his children. No complaints of pain. Continued complaints of constipation. Action: Offer frequent 1:1s. Continue to monitor for safety. Assess SI and HI. PRN of seroquel givenat 1530. Using nicotine inhaler. Orders obtained for PRN of senna and increased dose of nicotine patch. Educated pt about cognitive distortions and noticing patterns of thought. Response: Pt's mood improved after PRN of seroquel at 1530. After dinner, pt spoke to his children and then became tearful. Spoke about the uncertainty of his future including marital and financial concerns. CIWA = 2 at 2030. DEION MALIK APRN 08/05/2009 7:47 PM Renetta Barron - 08/05/2009 1439 EDT No multi-disciplinary problems found Data: Pt presents with restlessness and rumination reporting hopelessness related to separation fromwife. Pt spent time walking rapidly around unit, counting laps, stating I just need to move or I will surely get depressed. Pt denied any active suicidal ideation, he expressed his despair by saying I just want to disappear. Action: provide safety and stabilization, build therapeutic alliance Response: No sy/sx of ETOH W/D. Pt reports cravings to smoke marijuana in order to cope with stressors. Renetta Krishnamurthy RN 08/05/2009 2:39 PM Zenia Trotter MD - 08/05/2009 1253 EDT 08/05/2009 ATTENDING RAG INSPECTOR NOTE REASON FOR HOSPITALIZATION: ETOH Dependence and Mood disorder HOSPITAL DAY: LOS: 2 days INTERIM HISTORY: Events of past 24h reviewed with nursing staff. Upset about not being discharged yesterday. Seroquel very helpful per RN and patient. Some interruption of sleep. CIWA scores remain low. Restlessness. EXAM: More congruent mood and affect. Less hypomanic defense. Anxiety. Restlessness. Intrusive thoughts. Nicotine cravings. Helplessness. Hopelessness. Worthlesness. No suicidal plan. Passive wishes. BP 106/69 Pulse 66 Temp(Src) 37.2 ??C (99 ??F) (Tympanic) Resp 18 Wt 70.761 kg (156 lb) SpO2 97% ASSESSMENT: Mood disorder nos in context of heavy substance abuse/ dependence. PLAN: Seroquel XL 200 mg HS. Seroquel 50 mg po q am and 25 mg q 8 hours prn. Wellbutrin XL 150 mg po q am instead of 100 mg bid. ZENIA THOMPSON MD Attending Psychiatrist china and silverware salesperson Pager [phone] Lexi Verdugo RN - 08/05/2009 0638 EDT There is no problem list on file for this patient. Data: Pt appeared to sleep a bit better tonight, but states he's often awake on checks and just doesn't say anything. (advised pt to tell us in the future) Action: Pt maintained on frequent obs for safety. Provided with therapeutic 1:1. CIWA assessment completed. Requested and rec'd prn Seroquel to help calm. Response: Its unclear how many hours the pt actually slept. He reported having vivid dreams that he was able to recall. CIWA at 0430=5, the score was based on anxiety and restlessness. Pt noted to haverestless legs when he was asleep. Pt finds considerable relief in seroquel. Up for day at 0400. Verypleasant, easily engages. Pt astonished by watching the sun rise this morning. Said he'd never watched the sunrise before. Lexi Wallace RN 08/05/2009 6:38 AM Deion Sanchez APRN - 08/04/2009 4881 EDT No multi-disciplinary problems found Data: Pt very anxious and agitated at the start of the shift. Tearful. Positive suicidal ideation but denies any intent due to the impact it would have on his children. Restless. CIWA score= 9 at 1530.No complaints of pain. Action: Offer 1:1s. Continue to monitor for safety. Assess SI and HI. PRN of seroquel given at 1530.Using nicotine inhaler. PRN of docusate given. Response: Pt again responded well to PRN dose of seroquel. Listened to music. Did yoga. Ambulated around unit. Tearful again and restless around 2000. CIWA score = 3 at that time. Feel asleep around 2200. DEION MALIK APRN 08/04/2009 6:59 PM Ana Reinoso - 08/04/2009 1605 EDT Social Work Progress Note Intervention/Service: On-going assessment Met with Delroy. He talked a lot about his issues with his and their marriage. He feels as if hecan not have a civil discussion with her. He talked about the pain of not being able to be with his children if they divorce. He feels overwhelmed by all the issues and problems facing him. Talked about taking things one step at a time. Encouraged him to rest this weekend. He said he has gotten so far as to write suicide notes but that he would never kill himself because of his children. He finds AA helpful and his sponsor to be helpful. His and children will be back on Friday. Ana Spaulding, PHYSICIAN'S ASSISTANT [phone] Jazmine Blake - 08/04/2009 1436 EDT S/o: Pt attended the Cognitive Group and participated in the discussion of cognitive distortions andcompleted a thought record about a difficult situation. Pt picked a thought changing card that stated I have a hard time concentrating. Pt went on to state I need to break things down, he also rosalia a stop sign on his paper to remind him to slow down. Pt stated I am trying to work on this but mybrain becomes spaghetti, I can tell others but not my self. Pt was able to with support talk about his struggles with his concentration. A/ inc cog skills, inc participation, focus, social, at times organized manner, brighter affect. P: Attend the groups. Salome Denson - 08/04/2009 1300 EDT No multi-disciplinary problems found There is no problem list on file for this patient. Data: Patient awake this AM, reports a good mood, no pain or distress. He denied S/I. Patient scoreda 1 at 8 AM for CIWA. VSS, appetite good. Patient was upset this afternoon after discussion with MDsand their recommendation for him to stay. Action: Engaged with patient, offered support and stabilization. Monitored for safety. Continued on frequent checks. Response: Patient remained safe on unit, no pain noted at this time, will continue to monitor. Salome Sharpe RN 08/04/2009 1:00 PM Zenia Trotter MD - 08/04/2009 1251 EDT Architectural Draftsman Progress Note Date: 08/04/09 Chief Complaint/Presenting Problem: THC/EtOH, SI Status: Hospital day 1, Level IV, observation changed from constant to frequent today Attending: Dr. Thompson Subjective: Today Delroy Khan meets with the attending, medical student, and this resident. Although Delroy at first expresses the desire to leave the hospital today, he expresses willingness to stay until Fridayfollowing a conversation about the likely consequences of him leaving prematurely (EtOH and THC relapse, on-going suicidal ideation and risk) and the potential benefits of staying (primarily optimizinghis pharmacological treatment and arranging on-going outpatient substance abuse treatment). Delroy acknowledges that he agrees with the treatment team's assessment and recommendations but findsit hard to accept the severity of his situation, and the help he needs. We discuss the challenges heis facing: the physical and emotional responses to stopping EtOH and THC consumption, his likely underlying depressive and anxiety disorder, and the stressor of the break-up of his marriage. Per nursing, pt reported SI last evening, but today denies current SI. We review the plan to lower the dose of Celexa due to concerns that it is causing akathisia (pt reports an achy feeling that drives him to fidget) and starting Wellbutrin to help target depressive, anxiety, and addictive symptoms. Delroy reports experiencing a calming benefit to his first few doses of Seroquel and we discuss increasing his dose. Vital Signs: Blood pressure 116/87, pulse 71, temperature 36.9 ??C (98.4 ??F), temperature source Tympanic, resp.rate 16, weight 70.761 kg (156 lb), SpO2 98%. Medications: Citalopram 60 mg qd Ibuprofen 400 mg prn pain Nicotine replacement seroquel 25 mg tid, plus 25 mg prn agitation New Labs/Imaging: Tox screen positive for benzos and cannabis Thyroid function tests WNL. Review of Systems: No new complaints. Headache resolved. Sleep good. Mental Status Exam: Young, clean-shaven man of small-medium build, in hospital pants and sweatshirt. Constant fidgeting movements, particularly of feet. Cooperative. Good eye contact. Speech: continues to be fairly rapid but not pressured, normal volume and tone. Affect: Frequent use of humor to diffuse seriousness of topics, incongruent with depressed, anxious mood. Thought process:goal-directed, mildly distractible. Thought content: Conflicted about hospital stay/treatment, but currently accepting plan to stay over weekend. Intermittent SI. Denies HI. No psychotic symptoms. Alert and oriented. Insight: fair. Judgment: fair, but impulse control questionable. Assessment: Delroy Khan is a 33 yo man originally from [facility], conflictually with two daughters, who reports a history of early-onset, heavy EtOH use, sober for past 16 days, and on-going THC use. He also describes depressive and anxiety symptoms, particularly plagued by racing, intrusive, agitating thoughts and SI. These symptoms are likely motivators for his substance use, and also exacerbated by it. Accepting and reporting benefit from Seroquel. Seems to experiencing akathisia due to elevated dose of Celexa. Initially expressing a desire to leave today, but now accepting a stay until Friday in order to optimize pharmacological treatment and arrange aftercare plan for substance abuse treatment. [place] I: Substance-induced mood disorder (r/o BPAD, r/o MDD). EtOH dependence. THC abuse, r/o dependence. Nicotine dependence. R/o ADHD. [place] II: deferred [place] III: None identified. Plan: 1. Anxiety and depressive symptoms with agitation and SI -Increase seroquel to 50 mg bid, plus 25 mg prn agitation -Decrease citalopram to 40 mg to address akathisia and cross-taper with Wellbutrin SR (Starting at 100 mg bid) over next few days. -continue to foster therapeutic alliance and provide supportive therapy 2. EtOH dependence -Encourage sobriety -pt's reports minimal craving so will defer anti-craving agent -coordinate with SW re: residental or intensive out-patient substance treatment following discharge 3. THC abuse -encourage sobriety 4. Nicotine dependence -nicotine replacement 5. Unit activities/discharge planning -continue frequent observation due to recent SI -coordinate with SW re: potential family meeting and aftercare planning. Case discussed and plan reviewed with Dr. Barry Cates M.D. Pager # [phone] I have seen and examined the patient. I agree with the findings and plan of care as documented in the resident's note. I personally spent 40 minutes on this patient, greater than 50% time spent in counseling and/or coordination of care. ZENIA THOMPSON MD Attending, Inpatient Psychiatry, FA Charisse Zambrano - 08/04/2009 1235 EDT Mindfulness: S/O: Pt participated in group, taking part in the 5 senses exercise and joining in discussion. Pt liked the S.T.O.P. Concept/technique and he was reminded of how his mother would always tell him to stop and think, but I was always leaping before thinking. Pt was also reminded of his sponsor who talks to him about thinking about hunger, anger, etc, when pangs occur. Pt spoke a lot about AA and what he has learned there. A: Pt engaged, insight oriented, and increasing awareness. Pt benefited from group, affect was slightly restricted. P: To continue to go to therapeutic groups. Sav Connelly - 08/04/2009 1157 EDT Inpatient Psychiatry Daily Progress Note Admit Date: 08/03/2009 Hospital day: LOS: 1 day Date of Service: 08/04/2009 Legal Status: Legal status: voluntary Observation Level: Observation / visual check: Q 15 minutes (frequent) Locus/Risk of Harm: Current locus of harm: 4 Subjective / Chief Complaint: Mr. Khan is a 33 y/o male with a history of depression, polysubstance abuse who is here after a one day stay at [facility] where he was admitted because of suicidal thoughts and a self-made noose that he had intended on using. This was all in the face of 15 daysof sobriety from alcohol (he originally quit on June 05 and then had a relapse on July 18) and major familial stressors which drove him to this point. He has a history of SI, but had never gotten to this point in all of his thoughts/attempts. Clinical Update: I first met Mr. Khan yesterday afternoon and we had a long discussion about his history of drinking and the current situation he is in socially. His drinking behaviors began at the age of 15, and things began to get out of hand (his first arrest to be more specific) at the age of 19. He then describes a constant history of alcoholism for the next couple of years until his early 20s. For the next 4years, he used many other substances including LSD, cocaine and heroin. During this time, he also started using marijuana. In 1999 he met his future while they were both on vacation in [place] andthen he moved to the in 2002. Since moving here, he has not used anything other than a continued a lcoholism and marijuana. Both of these were heavy though. Over the past year, things have been strained between he and his . The relationship has been less than satisfying to both partners and the main deterrent to their separation had been their two daughters (Carolyne and Zuleima). However, last month, his told him she wanted a divorce and since then things have been difficult for Mr. Khan. His main source of stress has not been the loss of his , but the potential loss of his two daughters. He states these two girls are his world and they are the only signs that he has succeeded with anything in his life currently. When talking about his two daughters, he becomes emotional and it is apparent he cares about these two girls dearly. He discusses his marriage as one that has not been well for years. He states he constantly comes home and cleans the house top to bottom just so she won't rag on me. He also is worried that she is having an affair behind his back. He tells me that his would be really happy if I killed myself. Also, Woody a pretty chill dane and I have never hated anyone in my entire life, but she is making it really hard for me not to hate her. Undoubtedly it is difficult when any long-term relationship (such as a marriage) ends, but he seems to talk about the end of their marriage as something that simply needed to happen and he does not seem overly upset about it. One of his stressors about it ending pertains tothe fact that his manages the finances of the family. Mr. Khan also has good insight into what his 18 year history of alcoholism has done to his life.He says he has no tangible things in his life and that in a prior suicide note he was leaving his iPod to his oldest daughter and his cookie recipes to his younger daughter because that is all I have left to give them. He understands he is nearly at the end of his rope and really wants to seek help for his problems. He knows the main driving force is his two daughters, but if he doesn't do it for himself, his life will end prematurely. He speaks with great passion when discussing this topic and issobbing. His daughters hold great emotional value to him, which is important because it seems as though he doesn't have much more in life to live for. This is something we will discuss at length in thenext couple of days because it is crucial to explore as it will only serve to lessen his SI. He also stated briefly that he had not left his current home before this because he had nowhere to go. He currently lives in [place] with his 's parents and he depends on them for many things (heuses his [id number]'s van to drive around). However, he recently had a friend who offered him a place to live and he is going to take advantage of this offer. It is important for him to get some space from his because while she is the mother of their two children, she has been emotionally damaging to Mr. Khan. She is constantly reinforcing the notion that he is not a worthy father or person. She also convinced him that he was manic, so he went to his PCP to get a prescription for valproicacid. He stayed on this medication for two weeks, but had to end his regimen prematurely because it made him feel like a zombie. He is committed to the idea of getting some space from his , because he knows it is the only option at this point. This is a man who is on the verge of making some major changes in his life and he recognizes this. These major changes are increasing his anxiety at the moment, but he is doing what he believes he alma rosa follow through with these plans. We are recommending some pharmacological changes and psychosocial adjustments to make this work effectively. We also discussed the possibility of cognitive behavioral therapy as well. Past family/social history: Family and social history are both unchanged. Current hospital medications Medication Route Frequency ??? citalopram (CELEXA) tablet 60 mg Oral DAILY ??? nicotine (NICODERM CQ) patch Removal Transdermal QHS ??? nicotine (NICODERM CQ) 14 mg/24 hr patch 1 Patch Transdermal DAILY ??? ibuprofen (MOTRIN) tablet 400 mg Oral Q6H PRN ??? quetiapine (SEROQUEL) tablet 25 mg Oral TID ??? nicotine (NICOTROL) 10 mg inhaler 1 Inhaler Inhalation Q2H PRN ??? nicotine inhaler (delivery device) Inhalation PRN ??? quetiapine (SEROQUEL) tablet 25 mg Oral Daily PRN Review of Systems: Important items have been noted in the above clinical update. Objective / Physical Exam: Mental Status Exam: Mr. Khan is a 33 y/o caucausian male who is laying in bed in appropriate hospital clothing. He isrelaxing and has mild, intermittent twitching in his lower extremities. His upper extremities seem to be still, without any random movements. His speech has normal RRV. His mood is all right, while his affect is light and happy. This is not congruent with his mood as he clearly is depressed and he appears happy when looking at him. Clearly, this affect is a defense mechanism for what is going on internally with him. He currently has no SI, but did upon admission. His thought process is goal-oriented and while he sometimes has a hard time answering a question that is posed to him, he does generally get there. This is most likely due to the many external things going on in his life. He is orientedx4 and his memory is intact. His abstraction seems intact but not formally tested. Judgment and insight are mildly intact in that he knows he is sick and recognizes the life he now is leading is difficult and is the direct result of his addiction, but wants to be discharged earlier than should be clinically. Vital Signs BP: 116/87 mmHg Pulse: 71 Resp: 16 Temp: 36.9 ??C (98.4 ??F) SpO2: 98 % Physical Exam: No physical exam was completed today Data Review: Labs: Recent Results (from the past 24 hour(s)) DRUG SCREEN 6 Collection Time 08/03/09 5:00 PM Component Value Range ??? Amphetamine Screen, Urine - Value: Negative screen. Confirmation testing available upon request. Suitable for medical purposes only. Will not detect all drugs within class. Cutoff = 1000 ng/ml ??? Barbiturate Screen, Urine - Value: Negative screen. Confirmation testing available upon request. Suitable for medical purposes only. Will not detect all drugs within class. Cutoff = 300 ng/ml ??? Benzodiazepine Screen, Urine - Value: Presumptive positive, interpret with caution. Confirmation testing available upon request. Suitable for medical purposes only. Will not detect all drugs within class. Cutoff = 300 ng/ml ??? Cannabinoid Scrn, Ur - Value: Presumptive positive, interpret with caution. Confirmation testing available upon request. Suitable for medical purposes only. Will not detect all drugs within class. Cutoff = 50 ng/ml ??? Cocaine Metabolites, Ur - Value: Negative screen. Confirmation testing available upon request. Suitable for medical purposes only. Will not detect all drugs within class. Cutoff = 300 ng/ml ??? Opiate Scrn, Ur - Value: Negative screen. Confirmation testing available upon request. Suitable for medical purposes only. Will not detect all drugs within class. Cutoff = 300 ng/ml Does not detect oxycodone, oxycontin or methadone. TSH Collection Time 08/04/09 7:21 AM Component Value Range ??? TSH 0.86 0.35-5.00 (uIU/ml) T4 FREE Collection Time 08/04/09 7:21 AM Component Value Range ??? Free T4 0.9 0.8-1.8 (ng/dL) Other studies: Ref. Range 07/11/2009 19:00 08/03/2009 17:00 Amphetamine Screen, Urine No range found Negative screen.... Barbiturate Screen, Urine No range found Negative screen.... Benzodiazepine Screen, Urine No range found Presumptive posit... Cocaine Metabolites, Ur No range found Negative screen.... Opiate Scrn, Ur No range found Negative screen.... Cannabinoid Scrn, Ur No range found Presumptive posit... Assessment/Problems: Mr. Khan is a 33 y/o male with a history of polysubstance abuse, depression controlled with citalopram who is presenting with increased SI after creating a noose at [employer]. This increased SI is most likely due to the social stresses he is currently experiencing. He has not only recently given up drinking completely (last alcohol consumption was on 07/18/2009), but he is also facing the end of hisseven year marriage. He continues to smoke marijuana and cigarettes, but the alcohol has been a major part of his life for the past 18 years and this is most likely leading to his decompensated state. Furthermore, his depression is potentially not well-controlled. [place] I: Depression NOS, alcohol dependence, polysubstance abuse [place] II: Deferred [place] III: Deferred [place] IV: impending divorce, living arrangements [place] V: 25 (admission), 42 (previous year) Plan: Depression/fluctuating moods: recently controlled with 60 mg of citalopram - Citalopram 40 mg PO QD (decreased from 60 mg QD to address akathisia) - Quetiapine 50 mg PO BID, 25 mg q12h for pain (cross taper between the two) - continue to provide supportive therapy and establishing a therapeutic alliance Alcohol dependence: has currently been sober for 17 days - Bupropion 100 mg PO BID - reports cravings as minimal - coordination with social services manager to establish rigorous treatment (CBT) Nicotine dependence/withdrawal: has been a smoker since moving to the - Nicotine 14 mg/24 hour patch, 1 per day - Nicotine 10 mg inhaler, q2h PRN - Nicotein inhaler, PRN Tetrahydrocannabinol abuse: has been an active abuser since his early 20s - encourage sobriety Discharge plans: complicated by family away on vacation and plans for divorce - potential collaboration with social services manager to set up a family meeting The following were discussed with the patient: all plans were discussed with the patient. Discharge Plan: Uncertain at this time, most likely to home at the beginning of next week if all pharmacologic adjustments go well Sav Lucia, MS-III, pager #[phone] Trisha Temple - 08/04/2009 1051 EDT S/O Pt attended the Writing group and participated in the activities and shared the writing with thegroup. Pt identified his goals for the day - to read two chapters in the bid book, to meditate and pray and to call his kids. Pt stated that journaling has helped him and he will continue to journal. A/ engaged, expressed feelings, improved mood. P/ to continue to participate in groups. Lexi Verdugo RN - 08/04/2009 0557 EDT There is no problem list on file for this patient. Data: Pt was restless off and on during the night. Able to get some sleep and finds relief from Seroquel. Action: Pt maintained on frequent obs for safety. CIWA assessment completed. Provided with supportive 1:1 as well as med teaching about Seroquel. Response: Pt reports feeling ready for d/c. States he will likely always have thoughts of suicide when he's at his low but that he would never act on it for fear of what it would do to his daughters. Pt states he often thinks of hanging himself, that is a recurrent theme for him, but despite even making nooses, he would never follow through with his handiwork. Pt understands why staff are concerned about his impulsivity, but reiterates that he would never kill himself and be that selfish to his kids. CIWA score during the night was a 2, for mild anxiety and restlessness. Pt reports sig relief from Seroquel and hopes to be d/c with it. He wants to apply for VHAP as he currently does not have insurance, and wonders if he would be able to pay for Seroquel. Reports sig anger toward Lexi, feels she is likely seeing someone else and he no longer has the wish to work on their marriage. Apparently a friend has offered him a place to stay and he feels he will move out of his house soon. Pt wants to be home on Friday when his and children return from vacation in [place], we discussed reasons why this might not be the best idea. Pt states he will remain safe and sober once d/c, that he is more committed to it now that he's thinking of his daughters first. Will continue to monitor. Lexi Wallace RN 08/04/2009 5:57 AM Deion Sanchez APRN - 08/03/2009 1917 EDT No multi-disciplinary problems found Data: Pt very anxious and agitated at the start of the shift. Tearful. Positive suicidal ideation with thoughts of hanging himself in the shower. Hopeless. Poor eye contact. C/o headache. Hand tremor noted. Restless. Slightly pressured speech. Denies any AH or VH. CIWA score= 16. AA sponser visited around dinner time. Action: Offer 1:1. Continue to monitor for safety. Assess SI and HI. UA [facility]. [facility] PRN of seroquel given. Using nicotine inhaler. Motrin given for headache pain at 1615.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 oral, 2 TIMES DAILY, First dose (after last modification) on Fri08/11/09 at 2100, Until Discontinued, Routine Given 08/13/2009 21:00 EDT 75 mg Given 08/13/2009 9:00 EDT 75 mg citalopram (CELEXA) tablet 20 mg Given 08/14/2009 9:00 EDT 20 mg 20 mg, oral, DAILY, First dose on Fri08/07/09 at 1100, Until Discontinued, Routine Given 08/13/2009 9:00 EDT 20 mg Given 08/12/2009 9:00 EDT 20 mg citalopram (CELEXA) tablet 40 mg Given 08/06/2009 20:10 EDT 40 mg 40 mg, oral, DAILY, First dose (after last modification) on Fri08/04/09 at 2100, Until Discontinued, STAT Given 08/05/2009 20:39 EDT 40 mg Given 08/04/2009 20:46 EDT 40 mg citalopram (CELEXA) tablet 60 mg Given 08/03/2009 20:24 EDT 60 mg 60 mg, oral, DAILY, First dose on Bobbi 08/03/09 at 0900, Until Discontinued, STAT clonazepam (KLONOPIN) tablet 0.5 mg Given 08/12/2009 6:43 EDT 0.5 mg 0.5 mg, oral, 4 TIMES DAILY, First dose on Fri08/11/09 at 1130, Until Discontinued, STAT Given 08/11/2009 19:15 EDT 0.5 mg Given 08/11/2009 15:58 EDT 0.5 mg clonazepam (KLONOPIN) tablet 0.5 mg Given 08/12/2009 10:15 EDT 0.5 mg 0.5 mg, oral, NOW X1, 1 dose, On 08/12/09 at 1015, Routine clonazepam (KLONOPIN) tablet 0.5 mg Given 08/14/2009 12:00 EDT 0.5 mg 0.5 mg, oral, 2 TIMES DAILY WITH LUNCH & DINNER, First dose on 08/12/09 at 1200, Until Discontinued, Routine Given 08/13/2009 16:00 EDT 0.5 mg Given 08/13/2009 12:00 EDT 0.5 mg clonazepam (KLONOPIN) tablet 0.5 mg Given 08/14/2009 14:28 EDT 0.5 mg 0.5 mg, oral, ONCE PRN, 1 dose, Starting on Fri08/14/09 at 1410, Until Fri08/14/09 at 1428, Anxiety, Routine clonazepam (KLONOPIN) tablet 1 mg Given 08/14/2009 7:00 EDT 1 mg 1 mg, oral, 2 TIMES DAILY, First dose (after last modification) on 08/12/09 at 2100, Until Discontinued, Routine Given 08/13/2009 21:00 EDT 1 mg Given 08/13/2009 7:00 EDT 1 mg docusate sodium (COLACE) capsule 100 mg Given 08/09/2009 9:30 EDT 100 mg 100 mg, oral, 2 TIMES DAILY PRN, Starting on Fri08/04/09 at 1619, Until Fri08/14/09 at 1655, Constipation, Routine Given 08/07/2009 19:23 EDT 100 mg Given 08/06/2009 20:10 EDT 100 mg ibuprofen (MOTRIN) tablet 400 mg Given 08/11/2009 4:34 EDT 400 mg 400 mg, oral, EVERY 6 HOURS PRN, Starting on Bobbi 08/03/09 at 0343, Until 08/14/09 at 1655, Pain, Routine Given 08/08/2009 20:00 EDT 400 mg Given 08/08/2009 12:49 EDT 400 mg nicotine (NICODERM CQ) 14 mg/24 hr patch 1 Given 08/05/2009 9:23 EDT 1 Patch Patch 1 Patch, transdermal, DAILY, First dose on Bobbi 08/03/09 at 0900, Until Discontinued, STAT Given 08/04/2009 8:21 EDT 1 Patch Given 08/03/2009 9:10 EDT 1 Patch nicotine (NICODERM CQ) 21 mg/24 hr patch 1 Given 08/06/2009 9:42 EDT 1 Patch Patch 1 Patch, transdermal, DAILY, First dose on 08/06/09 at 0900, Until Discontinued, Routine nicotine (NICODERM CQ) 21 mg/24 hr patch 1 Given 08/14/2009 9:00 EDT 1 Patch Patch 1 Patch, transdermal, DAILY, First dose on 08/06/09 at 0915, Until Discontinued, Routine Given 08/12/2009 9:00 EDT 1 Patch Given 08/08/2009 6:56 EDT 1 Patch Other nicotine (NICODERM CQ) patch Removal Given 08/05/2009 20:39 EDT transdermal, AT BEDTIME, First dose on Bobbi 08/03/09 at 2100, Until Discontinued Given 08/04/2009 20:46 EDT Given 08/03/2009 20:24 EDT nicotine (NICODERM CQ) patch Removal Given 08/06/2009 20:00 EDT transdermal, AT BEDTIME, First dose on 08/05/09 at 2100, Until Discontinued Given 08/05/2009 20:48 EDT nicotine (NICODERM CQ) patch Removal Given 08/13/2009 21:00 EDT transdermal, AT BEDTIME, First dose on 08/06/09 at 2100, Until Discontinued Given 08/12/2009 21:09 EDT Given 08/11/2009 21:27 EDT nicotine (NICOTROL) 10 mg inhaler 1 Inha ler Given 08/14/2009 12:09 EDT 1 Inhaler 1 Inhaler, inhalation, EVERY 2 HOURS PRN, Starting on Bobbi 08/03/09 at 1503, Until 08/14/09 at 1655, Smoking Cessation, Routine Given 08/14/2009 9:24 EDT 1 Inhaler Given 08/13/2009 13:59 EDT 1 Inhaler nicotine inhaler (delivery device) Given 08/10/2009 8:52 EDT 1 Each 1 Each, inhalation, PRN, Starting on Bobbi 08/03/09 at 1503, Until Fri08/14/09 at 1655, Smoking Cessation Given 08/04/2009 20:00 EDT 1 Each Given 08/03/2009 15:25 EDT 1 Each PEG 3350-Electrolytes (MIRALAX) packet 1 7 g Given 08/14/2009 9:00 EDT 17 g 17 g, oral, DAILY, First dose on 08/05/09 at 2100, Until Discontinued, Routine Given 08/13/2009 9:00 EDT 17 g Given 08/12/2009 9:00 EDT 17 g quetiapine (SEROQUEL XR) XR tablet 200 m g Given 08/10/2009 20:41 EDT 200 mg 200 mg, oral, AT BEDTIME, First dose on 08/05/09 at 2100, Until Discontinued, Routine Given 08/09/2009 21:00 EDT 200 mg Given 08/08/2009 20:00 EDT 200 mg quetiapine (SEROQUEL) tablet 100 mg Given 08/11/2009 21:26 EDT 100 mg 100 mg, oral, AT BEDTIME, 1 dose, First dose on Fri08/11/09 at 2100, Routine quetiapine (SEROQUEL) tablet 25 mg Given 08/04/2009 13:04 EDT 25 mg 25 mg, oral, 3 TIMES DAILY, First dose on Bobbi 08/03/09 at 1530, Until Discontinued, Routine Given 08/04/2009 8:22 EDT 25 mg Given 08/03/2009 20:24 EDT 25 mg quetiapine (SEROQUEL) tablet 25 mg Given 08/04/2009 2:45 EDT 25 mg 25 mg, oral, DAILY PRN, Starting on Bobbi 08/03/09 at 1621, Until Fri08/04/09 at 1404, agitation/anxiety, Routine Given 08/03/2009 16:33 EDT 25 mg quetiapine (SEROQUEL) tablet 25 mg Given 08/05/2009 5:00 EDT 25 mg 25 mg, oral, EVERY 12 HOURS PRN, Starting on Fri08/04/09 at 1404, Until 08/05/09 at 1407, agitation/anxiety, Routine Given 08/04/2009 16:03 EDT 25 mg quetiapine (SEROQUEL) tablet 25 mg Given 08/09/2009 13:20 EDT 25 mg 25 mg, oral, EVERY 8 HOURS PRN, Starting on 08/05/09 at 1402, Until Fri08/09/09 at 2020, agitation/anxiety, Routine Given 08/09/2009 5:12 EDT 25 mg Given 08/08/2009 12:49 EDT 25 mg quetiapine (SEROQUEL) tablet 25 mg Given 08/10/2009 17:00 EDT 25 mg 25 mg, oral, 2 TIMES DAILY, First dose on Bobbi 08/10/09 at 1200, Until Discontinued, Routine Given 08/10/2009 12:00 EDT 25 mg quetiapine (SEROQUEL) tablet 50 mg Given 08/05/2009 9:23 EDT 50 mg 50 mg, oral, 2 TIMES DAILY, First dose (after last modification) on Fri08/04/09 at 2100, Until Discontinued, Routine Given 08/04/2009 20:46 EDT 50 mg quetiapine (SEROQUEL) tablet 50 mg Given 08/10/2009 6:53 EDT 50 mg 50 mg, oral, DAILY, First dose on Fri08/06/09 at 0900, Until Discontinued, Routine Given 08/09/2009 9:00 EDT 50 mg Given 08/08/2009 9:00 EDT 50 mg quetiapine (SEROQUEL) tablet 50 mg Given 08/11/2009 7:00 EDT 50 mg 50 mg, oral, EVERY 24 HOURS, First dose (after last modification) on Fri08/11/09 at 0700, Until Discontinued, Routine quetiapine (SEROQUEL) tablet 50 mg Given 08/12/2009 21:09 EDT 50 mg 50 mg, oral, AT BEDTIME, 1 dose, First dose on 08/12/09 at 2100, Routine senna (SENOKOT) tablet 1 Tab Given 08/13/2009 21:00 EDT 1 Tablet 1 Tablet, oral, AT BEDTIME, First dose on 08/05/09 at 2100, Until Discontinued, Routine Given 08/12/2009 21:09 EDT 1 Tablet Given 08/11/2009 21:26 EDT 1 Tablet documented in this encounter Discontinued Medications Medication Sig Discontinue Reason Start Date End Date clonazepam (KLONOPIN) 0.5 Take 1 Tab by 08/14/2009 0 08/14/2009 mg tablet mouth twice daily with lunch and dinner. buPROPion (WELLBUTRIN) 75 Take 1 Tab by 08/14/2009 0 08/14/2009 mg tablet mouth 2 times daily. lorazepam (ATIVAN) 1 mg Take 1 Tab by 08/01/200901/2010 tablet mouth every 6 hours. citalopram (CELEXA) 20 mg Take 60 mg by 0 08/14/2009 tablet mouth daily. diphenhydramine (SOMINEX) Take 1 Tab by 08/01/2009 0 08/14/2009 25 mg tablet mouth at bedtime as needed for Sleep. documented as of this encounter Active and Recently Administered Medications Times are shown in EDT. Scheduled Medication Order 08/12/2009 08/13/2009 08/14/2009 buPROPion (WELLBUTRIN) tablet 75 mg 09 (Given - Prov ider: Sandra Mcbride RN)2108 (Given - Provider: Elizabeth Mitchell RN) 899 (Given - Provider: Sandra Mcbride RN)2099 (Given - Provider: Elizabeth Mitchell RN) 0900 (Given - Provider: Sandra Mcbride RN) 75 mg, Oral, 2 TIMES DAILY, First dose o n Fri08/11/09 at 2100, Until Discontinued citalopram (CELEXA) tablet 20 mg 09 (Given - Provider: Francia Mcbride RN) 09 (Given - Provider: Sandra Mcbride RN) 09 (Given - Provider: Sandra Mcbride RN) 20 mg, Oral, DAILY, First dose on 08/07/09 at 1100, Until Disc ontinued clonazepam (KLONOPIN) tablet 0.5 mg (CANCELED) 0643 (G iven - Provider: Kyleigh Walden RN) 0.5 mg, Oral, 4 TIMES DAILY, First dose on Fri08/11/09 at 1130, Until Discontinued clonazepam (KLONOPIN) tablet 0.5 mg (COMPLETED) 1015 ( Given - Provider: Sandra Mcbride RN) 0.5 mg, oral, NOW X1, 1 dose, On Fri08/12/09 at 1015, Routine clonazepam (KLONOPIN) tablet 0.5 mg 1255 (Given - Prov ider: Sandra Mcbride RN)1700 (Given - Provider: Elizabeth Mitchell RN) 1200 (Given - Provider: Grupo Nair RN)1600 (Given - Provider: Elizabeth Mitchell RN) 1200 (Given - Provider: Grupo Nair RN - Comment: pt c/o anxiety) 0.5 mg, Oral, 2 TIMES DAILY WITH LUNCH A ND DINNER, First dose on 08/12/09 at 1200, Until Discontinued clonazepam (KLONOPIN) tablet 1 mg 2108 (Given - Provid er: Elizabeth Mitchell RN) 0700 (Given - Provider: Sandra Mcbride RN)2100 (Given - Provider: Elizabeth Mitchell RN) 0700 (Given - Provider: Jeison Lainez ) 1 mg, Oral, 2 TIMES DAILY, First dose on 08/12/09 at 2100, Until Discontinued nicotine (NICODERM CQ) 21 mg/24 hr patch 1 Patch (CANC ELED) 09 (Given - Provider: Sandra Mcbride RN) 09 (Not Given - Provider: Sandra king RN - Reason: Patient/family refused) 09 (Given - Provider: Sandra Mcbride RN) 1 Patch, Transdermal, DAILY, First dose on 08/06/09 at 0915, Until Discontinued nicotine (NICODERM CQ) patch Removal (CANCELED) 2108 ( Given - Provider: Elizabeth Mitchell RN) 2099 (Given - Provider: Elizabeth Mitchell RN) Transdermal, AT BEDTIME, First dose on 08/06/09 at 2100, Until Discontinued PEG 3350-Electrolytes (MIRALAX) packet 17 g (CANCELED) 899 (Given - Provider: Sandra Mcbride RN) 09 (Given - Provider: Sandra Mcbride RN) 09 (Give n - Provider: Sandra Mcbride RN) 17 g, Oral, DAILY, First dose on 08/05/09 at 2100, Until Disco ntinued quetiapine (SEROQUEL) tablet 50 mg (COMPLETED) 2108 (Juan R bowlesen - Provider: Elizabeth Mitchell, KATELYN) 50 mg, Oral, AT BEDTIME, 1 dose, First dose on 08/12/09 at 210 0 senna (SENOKOT) tablet 1 Tab (CANCELED) 210 (Given - Provider: Elizabeth Mitchell, RN) 2100 (Given - Provider: Elizabeth Mitchell, KATELYN) 1 Tab, Oral, AT BEDTIME, First dose on 08/05/09 at 2100, Until Discontinued PRN Medication Order 08/12/2009 08/13/2009 08/14/2009 clonazepam (KLONOPIN) tablet 0.5 mg (COMPLETED) 1428 (Given - Provider: Sandra Mcbride, KATELYN) 0.5 mg, Oral, ONCE PRN, 1 dose, Starting 08/14/09 at 1410, Until 08/14/09 at 1428 nicotine (NICOTROL) 10 mg inhaler 1 Inhaler (CANCELED) 1806 (Given - Provider: Yamilet Batista - Comment: patient request) 0900 (Given - Provider: Agnes Hernández RN)1203 (Given - Provider: Grupo Nair, KATELYN)1359 (Given - Provider: Grupo Nair, KATELYN) 0924 (Given - Provider: Kati Arzate RN)1209 (Given - Provider: Grupo Nair RN) 1 Inhaler, Inhalation, EVERY 2 HOURS PRN , Starting Bobbi 08/03/09 at 1503, Until Discontinued documented in this encounter Orders Medications Ordered That Might Not Have Count Last Ord ered Date First Ordered Date Been Administered clonazepam (KLONOPIN) tablet 1 mg 1 08/12/2009 buPROPion (WELLBUTRIN) tablet 75 mg 1 08/11/2009 citalopram (CELEXA) tablet 20 mg 1 08/07/2009 buPROPion (WELLBUTRIN SR) SR tablet 100 mg 1 08/04 quetiapine (SEROQUEL) tablet 50 mg 1 08/03/2009 Diet Count Last Ordered Date First Ordered Date DIET REGULAR 1 08/03/2009 Nursing Count Last Ordered Date First Ordered Date NURSING COMMUNICATION 5 08/10/2009 08/03/2009 Behavioral Health Services Count Last Ordered Date Fir st Ordered Date OBSERVATION LEVEL 1 08/07/2009 LOCUS RISK OF HARM 1 08/04/2009 RESTRICTIONS 1 08/03/2009 VOLUNTARY/INVOLUNTARY 1 08/03/2009 Admission Count Last Ordered Date First Ordered Date NOTIFY PPS OF DISCHARGE COMPLETE 1 08/14/2009 NOTIFY PPS OF ROOM CHANGE COMPLETE 1 08/11/2009 ADMIT TO INPATIENT 2 08/03/2009 PPS NOTIFICATION OF PATIENT ARRIVAL ON 0 UNIT Transfer Count Last Ordered Date First Ordered Date CHANGE ATTENDING TO: 1 08/07/2009 Discharge Count Last Ordered Date First Ordered Date DISCHARGE PATIENT 1 08/14/2009 documented in this encounter Care Teams Director Loss Prevention Relationship Specialty Start Date End Date None, Provider PCP - General 07/11/09 07/25/14 documented as of this encounter
--- OUTSIDE RECORDS SUMMARY | 2021-12-07 00:58 | XMS_ITS | Encounter Summary ---
:1975 Author Organization [facility] Address [address] [place] [address] Care Team Providers Name Role Phone Maximus Cabral MD Primary Care Provider [phone] Reason for Visit Reason Comments Back Pain pt having back spasms. pt de nies any injury but went to see PCP earlier this week and was prescribed robaxin, continued to have back spasms and then started flexeril earlie r today. Tonight went to sit down to watch a movie and back started spasm ing causing 10/10 pain. 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 Any movement at this time causing spasms Encounter Details Date Type Department Care Team Description 12/23/2015 - Emergency [facility] Geno Erwin MD [address] [place], [place] [id number] Back muscle spasm 12/24/2015 Emergency Department EmergencyLatrice MD (Primary Dx) - Main [place] [address] [place] [address] Social History Tobacco Use Types [...] Sign Reading Time Taken Comments Blood Pressure 122/87 12/24/2015 0400 EDT Pulse 73 12/23/20152250 EDT Temperature 36.4 ??C (97.6 ??F) 12/23/20152250 EDT Respiratory Rate 18 12/23/20152250 EDT Oxygen Saturation 99% 12/24/20150 EDT Inhaled Oxygen Concentration - - Weight 96.6 kg (213 lb) 12/23/20152250 EDT Height 180.3 cm (5' 11) 12/23/20152250 EDT Body Mass Index 29.71 12/23/20152250 EDT documented in this encounter Functional Status Cognitive Status Response Date of Assessment Because of a physical, mental, or emotional condition, do Ye s 08/03/2009 you have serious difficulty concentrating, remembering, or making decisions? (5 years old or older) documented as of this encounter Discharge Diagnoses Diagnosis M62.830 Muscle spasm of back-M62.830[ICD -10-CM] F17.200 Nicotine dependence, unspecified , uncomplicated-F17.200[ICD-10-CM] documented in this encounter Discharge Instructions InstructionsTraXander jackson MD - 12/24/2015 Take ibuprofen 600 mg 3-4 times daily round the clock. Take other medications as directed. Return for uncontrolled pain, fever, chest pain or shortness of breath not related to pain. documented in this encounter Medications at Time of Discharge Medication Sig Dispensed Refills Start Date End Date lithium carbonate 300 mg Take 1,200 mg by 0 tablet mouth daily. sertraline (ZOLOFT) 50 mg Take 150 mg by 0 tablet mouth daily. cyclobenzaprine (FLEXERIL) Take 1 Tab by 20 Tab 0 201509/13/2016 10 mg tablet mouth 3 times daily as needed for Muscle Spasms. QUEtiapine (SEROQUEL XR) Take 300 mg by 0 09/13/2016 300 mg XR tablet mouth daily. documented as of this encounter Discharge Disposition Disposition Code Departure Means Destination Home or Self Care Walk-out Home documented in this encounter ED Notes Rashida Harris RN - 12/24/2015 0456 EDT Pt sat up slowly with assistance from spouse and RN. Pt ambulated to the bathroom without any distress. Pt tolerated well ambulation Rashida Moe RN - 12/24/2015 0408 EDT Pt resting comfortably laying flat in bed. Pt states can feel his back hurting but it isn't that badly laying flat 2/10. Pt sat up straight on the stretcher and was successfully able to stay sitting up. Pt states he has increase of pain while sitting up that goes to a 7/10 but is happy that he is ableto stay sitting up Xander Hansen MD - 12/24/2015 0049 EDT DOS: 12/23/2015 Chief Complaint Patient presents with ??? Back Pain pt having back spasms. pt denies any injury but went to see PCP earlier this week and was prescribed robaxin, continued to have back spasms and then started flexeril earlier today. Tonight went to sitdown to watch a movie and back started spasming causing 10/10 pain. Last took flexeril 1 1/2 hrs PTAwith no releif. Any movement at this time causing spasms HPI HPI Comments: I, Bj Mai, am scribing for Xander Erwin MD while she is personally performing the service. Bj Mai 12/24/2015 0:49 Delroy Khan is a 40 y.o. male with a history of depression who presents with back pain onset 1 week ago. Pt says he has been experiencing 10/10 back pain, describes as intermittent spasm, that is made worse by movement. He says the pain is mid thoracic, on the Left side, and radiating around to front. Pt was evaluated by his PCP earlier this week for the pain, was prescribed robaxin (without relief). Pt was seen yesterday, no evidence of rib fracturesor infiltrate or PTX on X rays, and was started on flexeril, no relief. He says he has been experiencing some SOB (secondary to pain with respirations). Pt denies recent URI symptoms. Pt denies PE risk factors. He denies cardiac risk factors. Pt notes that prior to onset of symptoms 1 week ago, his daughter walked on his back (she weighs 145pounds) The history is provided by the patient and the spouse. Back Pain Location: Thoracic spine Quality: Stabbing Radiates to: Does not radiate Pain severity: Severe (pain free if not moving but jolts to 10/10 with movement or deep breath.) Pain is: Same all the time Onset quality: Sudden Duration: 1 week Timing: Intermittent Progression: Waxing and waning Chronicity: New Context comment: 140 lb child walked on back Relieved by: Being still Worsened by: Movement, sneezing, twisting and deep breathing Ineffective treatments: Muscle relaxants Associated symptoms: no bladder incontinence, no bowel incontinence, no dysuria, no fever, no leg pain, no numbness, no paresthesias, no perianal numbness and no tingling Risk factors: no hx of cancer, no recent surgery and no steroid use Review of Systems Review of Systems Constitutional: Negative for chills and fever. HENT: Negative for rhinorrhea. Respiratory: Positive for shortness of breath (due to pain with movement or deep breath.). Negative for cough. Gastrointestinal: Negative for bowel incontinence. Genitourinary: Negative for bladder incontinence, difficulty urinating, dysuria, flank pain and urgency. Musculoskeletal: Positive for back pain. Neurological: Negative for tingling, numbness and paresthesias. All other systems reviewed and are negative. No Known Allergies Vital Signs Vitals Reassessment?: Yes Temp: 36.4 ??C (97.6 ??F) Temp src: Oral Pulse: 73 Resp: 18 SpO2: 99 % BP: 122/87 BP MAP: 96 mm Hg BP Cuff Location: Right arm O2 Device: None (Room air) Physical Exam Constitutional: He is oriented to person, place, and time. He appears well- developed and well-nourished. No distress. HENT: Head: Normocephalic and atraumatic. Right Ear: External ear normal. Left Ear: External ear normal. Eyes: Conjunctivae and EOM are normal. Pupils are equal, round, and reactive to light. Neck: Normal range of motion. Neck supple. Cardiovascular: Normal rate, regular rhythm and normal heart sounds. No murmur heard. Pulmonary/Chest: He has no wheezes. He has no rales. Shallow respirations, due to pain. Abdominal: Soft. Bowel sounds are normal. There is no tenderness. There is no guarding. Musculoskeletal: He exhibits no edema or tenderness. No cords or edema in lower extremities Neurological: He is alert and oriented to person, place, and time. Skin: Skin is warm and dry. He is not diaphoretic. Psychiatric: He has a normal mood and affect. Nursing note and vitals reviewed. RESULTS LABS: Patient had labs that were reviewed independently by myself, significant for normal electrolytes, normal BUN, normal creatinine. Hilbert (0.2) Relevant Data Procedures The patient???s past medical, family, and social history was reviewed and updated as needed. ED COURSE A medical screening exam was performed. I reviewed chest and rib x ray reports from earlier today. Initial physical exam was limited due to Pt's discomfort. Abdominal exam benign, no cords or edema in lower extremities. Pt was administered Valium (2.5mg), Toradol (15mg), and magnesium sulfate (2g). 0202: Pt reevaluation. He attempted to sit up, and was unable to do so due to pain and recurrence ofspasm. Pt said if he lays completely still and does not move, he does not have significant pain. Pt was administered repeat dose of Valium (2.5mg) and Dilaudid (.5mg). 0405: Pt reevaluation. He reported improved condition, was able to sit up. He said he felt well enough to be discharged. Pt was discharged home with starter packs of Dilaudid and Valium to follow up tomorrow with his PCP.Prior to discharge usual and customary precautions were reviewed with the patient including follow-up instructions and reasons to return to the Emergency Department if condition worsens, does not improve as expected, or other new concerns arise. ASSESSMENT AND PLAN Final diagnoses: Back muscle spasm DISPOSITION: Discharged The patient's pain was managed to an adequate level weighing risk vs. benefit of further medications. Upon departure from the Emergency Department, the patient's pain was 4 on a zero to ten scale. Condition at departure from the Emergency Department: Improved PCP: Maximus Cabral MDM Number of Diagnoses or Management Options Back muscle spasm: Amount and/or Complexity of Data Reviewed Clinical lab tests: ordered and reviewed Independent visualization of images, tracings, or specimens: yes This documentation is recorded by Bj Mai acting as Scribe under the direction and presence of Xander Erwin MD. Xander Erwin MD: I personally performed the services recorded by the scribe in my presence. I confirm the scribe's documentation has been reviewed by me to accurately and completely record my work,treatment, procedures, and medical decision making. 12/24/2015 4:10 No flowsheet data found. Rashida Moe RN - 12/23/2015 2248 EDT Robaxin and flexeril already prescribed and patient currently taking. Pt has not had any relief witheither medication. Pt denies any injury, or trauma to back, pt states if he is perfectly still without any movement then he is all right but any movement at all he has extreme pain documented in this encounter Plan of Treatment Not on filedocumented as of this encounter Procedures Procedure Name Priority Date/Time Associated Diagnosis Comme nts BUN STAT 12/24/2015 1:08 EDT Results for this procedure are i n the results section . CREATININE STAT 12/24/2015 1:08 EDT Results for this procedure are i n the results section . LITHIUM STAT 12/24/2015 1:08 EDT Results for this procedure are i n the results section . ELECTROLYTES STAT 12/24/2015 1:08 EDT Results for this procedure are i n the results section . documented in this encounter Results CREATININE (12/24/2015 1:08 EDT) Creatinine 0.85 0.66 - 1.25 [facility] mg/dl LABORATORY SERVICES GFR, Calculated 111 >60 [facility] Comment: ml/min/1.73m2 LABORATORY eGFR calculated using CKD-EPI equation for SERVICES non Americans. Multiply eGFR by 1.16 for Americans. Specimen Blood specimen (specimen) - Blood Performing Organization Address City/State/ZIP Code Phon e Number [facility] [address] [phone] SERVICES BUN (12/24/2015 1:08 EDT) Pathologist Sig nature BUN 17 10 - 26 mg/dl [facility]ORATO RY SERVICES Specimen Blood specimen (specimen) - Blood Performing Organization Address City/[facility]/ZIP [facility] Phon e Number [facility] [address] [place] [address] SERVICES ELECTROLYTES (12/24/2015 1:08 EDT) Pathologist Sig nature Sodium 143 136 - 145 mEq/L [facility] T[facility] SERVICES Potassium 3.9 3.5 - 5.0 mEq/L [facility] SERVICES Chloride 102 96 - 110 mEq/L [facility] ORY SERVICES CO2 30 24 - 32 mEq/L [facility] RY SERVICES Specimen Blood specimen (specimen) - Blood Performing Organization Address City/[facility]/ZIP [facility] Phon e Number [facility] [address] [phone] SERVICES (ABNORMAL) LITHIUM (12/24/2015 1:08 EDT) Pathologist Sig nature Hilbert 0.2 (L) 0.6 - 1.2 mEq/L [facility] SERVICES Specimen Blood specimen (specimen) - Blood Performing Organization Address [facility]/ZIP [facility] Phon e Number [facility] [address] [place] [address] SERVICES documented in this encounter Visit Diagnoses Diagnosis Back muscle spasm - Primary Other symptoms referable to back documented in this encounter Administered Medications Inactive Administered Medications - up to 3 most recent administrations Medication Order MAR Action Action Date Dose Rate Site DIAZepam (VALIUM) 5 mg Tab ACT One Given 12/24/2015 4:26 EDT 1 P ackage STARTER PACK 1 Package, oral, NOW X1, 1 dose, On 12/24/15 at 0415, STAT DIAZepam (VALIUM) syringe 2.5 mg Given 12/24/2015 1:16 EDT 2.5 mg 2.5 mg, intravenous, NOW X1, 1 dose, On 12/24/15 at 0100, STAT DIAZepam (VALIUM) syringe 2.5 mg Given 12/24/2015 2:22 EDT 2.5 mg 2.5 mg, intravenous, NOW X1, 1 dose, On 12/24/15 at 0215, STAT DIAZepam (VALIUM) syringe 2.5 mg Given 12/24/2015 4:26 EDT 2.5 mg 2.5 mg, intravenous, NOW X1, 1 dose, On 12/24/15 at 0415, STAT HYDROmorphone (PF) (DILAUDID) 1 mg/mL injection Given 12/24/2015 2:22 EDT 0.5 mg 0.5 mg 0.5 mg, intravenous, NOW X1, 1 dose, On 12/24/15 at 0215, STAT HYDROmorphone (PF) (DILAUDID) 1 mg/mL injection Given 12/24/2015 4:26 EDT 0.5 mg 0.5 mg 0.5 mg, intravenous, NOW X1, 1 dose, On 12/24/15 at 0415, STAT Hydromorphone 2 mg Tab STARTER PACK Given 12/24/2015 4:26 EDT 1 Package 1 Package, oral, NOW X1, 1 dose, On 12/24/15 at 0415, STAT ketOROLAC (TORADOL) injection 15 mg Given 12/24/2015 1:17 EDT 15 mg 15 mg, intravenous, NOW X1, 1 dose, On 12/24/15 at 0100, STAT magnesium sulfate 2 g in water 50 mL Given 12/24/2015 1:40 EDT 2 g 2 g, intravenous, Administer over 30 Minutes, NOW X1, 1 dose, On 12/24/15 at 0100, STAT documented in this encounter Active and Recently Administered Medications Times are shown in EDT. Scheduled Medication Order 12/22/2015 12/23/2015 12/24/2015 DIAZepam (VALIUM) 5 mg Tab ACT One STARTER PACK (COMPLETED) 0426 (Given - Provider: Rashida Harris RN) 1 Package, oral, NOW X1, 1 dose, 12/24/15 at 0415, STAT DIAZepam (VALIUM) syringe 2.5 mg (COMPLETED) 0116 (Given - Provider: Rashida Harris RN) 2.5 mg, intravenous, NOW X1, 1 dose, 12/24/15 at 0100, STAT DIAZepam (VALIUM) syringe 2.5 mg (COMPLETED) 221 (Given - Provider: Keyshawn Bowden, RN) 2.5 mg, intravenous, NOW X1, 1 dose, 12/24/15 at 0215, STAT DIAZepam (VALIUM) syringe 2.5 mg (COMPLETED) 425 (Given - Provider: Rashida Harris, KATELYN) 2.5 mg, intravenous, NOW X1, 1 dose, 12/24/15 at 0415, STAT HYDROmorphone (PF) (DILAUDID) 1 mg/mL injection 0.5 mg (COMPLETE D) 221 (Given - Provider: Keyshawn Bowden, RN) 0.5 mg, intravenous, NOW X1, 1 dose, 12/24/15 at 0215, STAT HYDROmorphone (PF) (DILAUDID) 1 mg/mL injection 0.5 mg (COMPLETE D) 425 (Given - Provider: Rashida Harris, KATELYN) 0.5 mg, intravenous, NOW X1, 1 dose, 12/24/15 at 0415, STAT Hydromorphone 2 mg Tab STARTER PACK (COMPLETED) 425 (Given - Provider: Rashida Harris, RN) 1 Package, oral, NOW X1, 1 dose, 12/24/15 at 0415, STAT ketOROLAC (TORADOL) injection 15 mg (COMPLETED) 011 (Given - Provider: Rashida Harris, RN) 15 mg, intravenous, NOW X1, 1 dose, 12/24/15 at 0100, STAT magnesium sulfate 2 g in water 50 mL (COMPLETED) 0140 (Given - Provider: Rashida Harris, RN) 2 g, intravenous, for 30 Minutes, NOW X1, 1 dose, 12/24/15 at 0100, STAT sodium chloride 0.9 % BOLUS 1,000 mL 222 (Completed - Provider: Keyshawn Bowden, KATELYN) 1,000 mL, intravenous, NOW X1, 1 dose, 12/24/15 at 0100, STAT documented in this encounter Orders Medications Ordered That Might Not Have Count Last Ord ered Date First Ordered Date Been Administered sodium chloride 0.9 % BOLUS 1,000 mL 12/24/2015 Nursing Count Last Ordered Date First Ordered Date INSERT SALINE LOCK 12/24/2015 documented in this encounter Care Teams Migratory Farm Hand Relationship Specialty Start Date End Date Warnken, Maximus Anay, MD PCP - General 07/26/14 documented as of this encounter
--- OUTSIDE RECORDS SUMMARY | 2021-12-07 00:58 | XMS_ITS | Encounter Summary ---
:1975 Author Organization [facility] Address [address] [place] [address] Care Team Providers Name Role Phone Maximus Cabral MD Primary Care Provider [phone] Reason for Visit Reason Onset Date Comments Appointment Related 05/30/2015 Encounter Details Date Type Department Care Team Description 05/30/2015 Telephone [facility] Therapy, Physical Appo intment Related Rehabilitation Therapy - Medical Office [id number] [place], [place] [id number] Social History Tobacco Use Types Packs/Day Years [...] or older) documented as of this encounter Miscellaneous Notes Telephone Encounter - Kacey Vigil - 05/30/2015 3642 EST Ambulatory consult/referral received for Physical Therapy for a diagnosis of shoulder pain. The patient was contacted and stated that he is receiving treatment at an outside facility. Kacey Vigil 05/30/2015 15:32 documented in this encounter Plan of Treatment Not on filedocumented as of this encounter Visit Diagnoses Not on filedocumented in this encounter Care Teams Investor Relations Director Relationship Specialty Start Date End Date Maximus Cabral MD PCP - General 07/26/14 documented as of this encounter
--- OUTSIDE RECORDS SUMMARY | 2021-12-07 00:58 | XMS_ITS | Encounter Summary ---
:1975 Author Organization [facility] Address [address] [place] [address] Care Team Providers Name Role Phone Maximus Cabral MD Primary Care Provider [phone] Encounter Details Date Type Department Care Team Description 04/02/2016 Results Only [facility]- [facility] Augustus Echevarria, PMHNP [phone] [address] [place] [phone] (Wo rk) Social History Tobacco Use Types [...] Date/Time Associated Diagnosis Comme nts LITHIUM Routine 04/02/2016 11:33 EST Results for this procedure are i n the results section . documented in this encounter Results LITHIUM (04/02/2016 11:33 EST) Pathologist Sig nature Lavinia 0.7 0.6 - 1.2 mEq/L [facility] SERVICES Specimen Blood Performing Organization Address City/State/ZIP Code Phon e Number [facility] [address] [place] [address] SERVICES documented in this encounter Visit Diagnoses Not on filedocumented in this encounter Care Teams Sculpture Instructor Relationship Specialty Start Date End Date Maximus Cabral MD PCP - General 07/26/14 documented as of this encounter
--- OUTSIDE RECORDS SUMMARY | 2021-12-07 00:58 | XMS_ITS | Encounter Summary ---
:1975 Author Organization [facility] Address [address] [place] [address] Care Team Providers Name Role Phone Maximus Cabral MD Primary Care Provider Reason for Visit Reason Onset Date Comments Eye Problem 08/02/2014 eye pain is worsenin g and vision has changed Encounter Details Date Type Department Care Team Description 08/02/[address] [facility] Keyshawn Fowler, Eye Problem (eye pain Ophthalmology - Main MD is worsening and [place] [address] [place] [address] vision has changed) [address] [phone] [facility] [address] [place] [address] (Wo rk) Social History Tobacco Use [...] this encounter Miscellaneous Notes Telephone Encounter - Marie Garrison RN - 08/02/2014 1109 EDT Per Valencia Renteria she spoke with Lucy ([employer]) and pt is going to come to an earlier appointment at 1245today. Pt is aware. documented in this encounter Plan of Treatment Not on filedocumented as of this encounter Visit Diagnoses Not on filedocumented in this encounter Care Teams End Frazer Relationship Specialty Start Date End Date Maximus Cabral MD PCP - General 07/26/14 documented as of this encounter
--- OUTSIDE RECORDS SUMMARY | 2021-12-07 00:58 | XMS_ITS | Encounter Summary ---
:1975 Author Organization Address [address] [place] [address] Care Team Providers Name Role Phone Maximus Cabral MD Primary Care Provider [phone] Encounter Details Date Type Department Care Team Description 12/13/2015 Results Only [facility]- PR[facility] Augustus Echevarria, PMHNP [phone] [address] [place] [phone] (Wo rk) Social History Tobacco Use Types [...] Date/Time Associated Diagnosis Comme nts LITHIUM Routine 12/13/2015 9:38 EDT Results for this procedure are i n the results section . documented in this encounter Results (ABNORMAL) LITHIUM (12/13/2015 9:38 EDT) Pathologist Sig nature [place] 0.5 (L) 0.6 - 1.2 mEq/L [facility] SERVICES Specimen Blood Performing Organization Address City/State/ZIP Code Phon e Number [facility] [address] [place] [address] SERVICES documented in this encounter Visit Diagnoses Not on filedocumented in this encounter Care Teams Floor Care Specialist Relationship Specialty Start Date End Date Maximus Cabral MD PCP - General 07/26/14 documented as of this encounter
--- OUTSIDE RECORDS SUMMARY | 2021-12-07 00:58 | XMS_ITS | Encounter Summary ---
:[address] [facility] Address [address] [place] [address] Care Team Providers Name Role Phone Maximus Cabral MD Primary Care Provider [phone] Encounter Details Date Type Department Care Team Description 03/26/2016 Hospital Encounter [facility] Echevarria R, [facility] [id number] [place] [phone] (Wo rk) Social History Tobacco Use Types [...] as of this encounter Discharge Diagnoses Diagnosis F31.81 Bipolar II disorder-F31.81[ICD-10 -CM] documented in this encounter Medications at Time [...] on filedocumented in this encounter Care Teams Petroleum Laboratory Technician Relationship Specialty Start Date End Date Maximus Cabral MD PCP - General 07/26/14 documented as of this encounter
--- OUTSIDE RECORDS SUMMARY | 2021-12-07 00:58 | XMS_ITS | Encounter Summary ---
:1975 Author Organization [facility] Address [address] [place] [address] Care Team Providers Name Role Phone Maximus Cabral MD Primary Care Provider [phone] Encounter Details Date Type Department Care Team Description 10/23/2016 Orders Only [facility] Danielle Hurtado (Primary Dx); Urology - Medical [place] Urinary tr act infection without hematuria, site unspecified Office Building [address] [place] [address], [address] [place] [address] Social History Tobacco Use Types Packs/Day Years [...] as of this encounter Visit Diagnoses Diagnosis Dysuria - Primary Urinary tract infection without hematuri a, site unspecified documented in this encounter Care Teams Amusement Ride Operator Relationship Specialty Start Date End Date Maximus Cabral MD PCP - General 07/26/14 documented as of this encounter
--- OUTSIDE RECORDS SUMMARY | 2021-12-07 00:58 | XMS_ITS | Encounter Summary ---
:1975 Author Organization [facility] Address [address] [place] [address] Care Team Providers Name Role Phone Maximus Cabral MD Primary Care Provider [phone] Reason for Visit Reason Onset Date Comments Appointment Related 12/21/2015 Encounter Details Date Type Department Care Team Description 12/21/2015 Telephone [facility] Therapy, Physical Appo intment Related Rehabilitation Therapy - Medical Office [address] [place], [place] [phone] Social History Tobacco Use Types Packs/Day Years [...] Notes Telephone Encounter - Kacey Vigil - 12/21/2015 1349 EDT Ambulatory consult/referral received for Physical Therapy for a diagnosis of back pain. Referral states the patient will call to schedule. Records from [facility] have been scanned into [employer]. Kacey Vigil 12/21/2015 13:49 documented in this encounter Plan of Treatment Not on filedocumented as of this encounter Visit Diagnoses Not on filedocumented in this encounter Care Teams Seaweed Harvester Relationship Specialty Start Date End Date Maximus Cabral MD PCP - General 07/26/14 documented as of this encounter
--- OUTSIDE RECORDS SUMMARY | 2021-12-07 00:58 | XMS_ITS | Encounter Summary ---
:1975 Author Organization [facility] Address [address] [place] [address] Care Team Providers Name Role Phone None, Provider Primary Care Provider Unavailable Encounter Details Date Type Department Care Team Description 03/03/2012 Hospital Encounter [facility] Felipe [facility] DO [address] [address] [place] [address] (Wo rk) Social History Tobacco Use Types [...] Discharge Disposition Disposition Code Departure Means Destination Auto Discharge Home documented in this encounter Plan of Treatment Not on filedocumented as of this encounter Procedures Procedure Name Priority Date/Time Associated Diagnosis Comme nts HUMERUS 2 OR MORE 03/03/2012 18:31 Result s for this VIEWS EST procedure are i n the results section. ELBOW 3 OR MORE 03/03/2012 18:31 Results for this VIEWS EST procedure are i n the results section. documented in this encounter Results ELBOW 3 OR MORE VIEWS (03/03/2012 18:31 EST) Anatomical Region Laterality Modality Other Specimen Narrative [facility] - 03/03/2012 18:38 EST HUMERUS 2 OR MORE VIEWS, ELBOW 4 VIEWS ??Mar 03, 2012 06:31:00 PM Clinical history/Comments: left elbow an d distal humerus pain s/p fall Comparison: None Findings: Two views of the left humerus and 4 views of the left elbow show normal osseous structures and align ment, no sign of fracture. There is no displacement of the fat pads distal humerus Procedure Note 03/03/2012 HUMERUS 2 OR MORE VIEWS, ELBOW 4 VIEWS N 2011 06:31:00 PM Clinical history/Comments: left elbow an d distal humerus pain s/p fall Comparison: None Findings: Two views of the left humerus and 4 views of the left elbow show normal osseous structures and align ment, no sign of fracture. There is no displacement of the fat pads distal humerus Performing Organization Address City/State/ZIP Code Phon e Number [facility] HUMERUS 2 OR MORE VIEWS (03/03/2012 18:31 EST) Anatomical Region Laterality Modality Other Specimen Narrative [facility] - 03/03/2012 18:38 EST HUMERUS 2 OR MORE VIEWS, ELBOW 4 VIEWS ??Mar 03, 2012 06:31:00 PM Clinical history/Comments: left elbow an d distal humerus pain s/p fall Comparison: None Findings: Two views of the left humerus and 4 views of the left elbow show normal osseous structures and align ment, no sign of fracture. There is no displacement of the fat pads distal humerus Procedure Note 03/03/2012 HUMERUS 2 OR MORE VIEWS, ELBOW 4 VIEWS N ov 2011 06:31:00 PM Clinical history/Comments: left elbow an d distal humerus pain s/p fall Comparison: None Findings: Two views of the left humerus and 4 views of the left elbow show normal osseous structures and align ment, no sign of fracture. There is no displacement of the fat pads distal humerus Performing Organization Address City/State/ZIP Code Phon e Number [facility] documented in this encounter Visit Diagnoses Not on filedocumented in this encounter Care Teams Construction Superintendent Relationship Specialty Start Date End Date None, Provider PCP - General 07/11/09 07/25/14 documented as of this encounter
--- OUTSIDE RECORDS SUMMARY | 2021-12-07 00:58 | XMS_ITS | Encounter Summary ---
:1975 Author Organization [facility] Address [address] [place] [address] Care Team Providers Name Role Phone Maximus Cabral MD Primary Care Provider [phone] Encounter Details Date Type Department Care Team Description 04/02/2016 Hospital Encounter [facility] [place] Echevarria R, [facility] [id number] [place] [phone] (Wo rk) Social History Tobacco Use Types [...] on filedocumented in this encounter Care Teams Fish Rod Maker Relationship Specialty Start Date End Date Maximus Cabral MD PCP - General 07/26/14 documented as of this encounter
--- OUTSIDE RECORDS SUMMARY | 2021-12-07 00:58 | XMS_ITS | Encounter Summary ---
:1975 Author Organization [facility] Address [address] [place] [address] Care Team Providers Name Role Phone Maximus Cabral MD Primary Care Provider [phone] Reason for Visit Reason Onset Date Comments Medication Problem 09/14/2016 Encounter Details Date Type Department Care Team Description 09/14/2016 Telephone [facility] [facility], Medication Problem Care - Samantha villalobos RN [address] [place] [address] Social History Tobacco Use Types [...] this encounter Miscellaneous Notes Telephone Encounter - Yamilet Adorno RN - 09/14/2016 1219 EDT Call from Ida at [facility]. Ida was calling about a potential Level 1 QT prolongation between azithromycin and geodon. Geodon was not listed in pt's medication list at yesterday's visit. Discussed with Dr. Roman Gutierrez who advised that pt not have any abx currently, and to wait ontest results, and follow up with PCP if symptoms persist. Called pharmacy to cancel script for azithromycin. Called pt and advised him that Dr. Gutierrez advised no abx, follow up on test results and follow up with PCP if symptoms persist. Pt verbalized understanding. documented in this encounter Plan of Treatment Not on filedocumented as of this encounter Visit Diagnoses Not on filedocumented in this encounter Care Teams [place] [employer] Group Leader Relationship Specialty Start Date End Date Maximus Cabral MD PCP - General 07/26/14 documented as of this encounter
--- OUTSIDE RECORDS SUMMARY | 2021-12-07 00:58 | XMS_ITS | Encounter Summary ---
:1975 Author Organization [facility] Address [address] [place] [address] Care Team Providers Name Role Phone Maximus Cabral MD Primary Care Provider [phone] Encounter Details Date Type Department Care Team Description 12/13/2015 Hospital Encounter [facility] - [facility] [place] Eche[place]ria R, [facility] [id number] [place] [phone] (Wo rk) Social History Tobacco Use Types [...] Sig Dispensed Refills Start Date End Date citalopram (CELEXA) 20 mg Take 1 Tab by mouth 14 Tab 1 0 08/14/2009 12/23/2015 tablet daily. traMADol (ULTRAM) 50 mg Take 1 Tab by mouth 15 Tab 0 01/201612/23/2015 tablet every 8 hours as needed for Pain Daily Max: 150 mg venlafaxine (EFFEXOR) 50 Take 75 mg by mouth 0 12/23/2015 mg tablet 2 times daily documented as of this encounter Discharge Disposition Disposition Code Departure Means Destination Home or Self Care documented in this encounter Plan of Treatment Not on filedocumented as of this encounter Visit Diagnoses Not on filedocumented in this encounter Care Teams Kit Assembler Relationship Specialty Start Date End Date Maximus Cabral MD PCP - General 07/26/14 documented as of this encounter
--- OUTSIDE RECORDS SUMMARY | 2021-12-07 00:58 | XMS_ITS | Encounter Summary ---
:1975 Author Organization [facility] Address [address] [place] [address] Care Team Providers Name Role Phone Maximus Cabral MD Primary Care Provider [phone] Reason for Visit Reason Comments Follow-up 1 week f/u - corneal epithel ial defect, left eye. States pain is gone. Eye feels much better, although vision is still somewhat blurred. Has been using Emycin surjit -/2. Encounter Details Date Type Department Care Team Description 08/10/2014 Office Visit [facility] Suleiman Mcneil Ophthalmology - Ike Person MD [id number] [place] [address], [place] [address] (Wo rk) Social History Tobacco [...] as of this encounter Discharge Diagnoses Diagnosis 371.00 CORNEAL OPACITY NOS[ICD-9-CM] documented in this encounter Ordered Prescriptions Prescription Sig Dispensed Refills Start Date End Date prednisoLONE (PRED FORTE) Place 1 Drop into 1 Bottle 3 09/201405/17/2015 1 % ophthalmic suspension the left eye 4 times daily documented in this encounter Progress Notes Suleiman Mcneil MD - 08/10/2014 0913 EDT Department of Ophthalmology / Cataract/Cornea Office Visit Note Referring physician: Keyshawn Fowler Local Eye Tank Car Loader: Family Physician (PCP): Maximus Cabral MD Other Physician: History of Present Illness: This HPI section must be documented by the physician (or scribe upon the dictation of the physician). It should not be documented independently by the inventory technician/scribe in the absence of the physician. Patient presents with ??? Follow-up 1 week f/u - corneal epithelial defect, left eye diagnosed 07/26/14. States pain is gone. Eye feels much better, although vision is still somewhat blurred. Has been using Emycin surjit -/2. Pain: 0 / 10 Both Eyes Flashes: No Floaters: No Controls: Diabetes :No Hypertension:No Tobacco:No EXAMINATION: Base Eye Exam Visual Acuity (Snellen - Linear) Right Left Dist cc 20/20- 20/80 +1 Dist ph cc 20/20- Correction: Glasses Tonometry defer Neuro/Psych Oriented x3: Yes Mood/Affect: Normal Slit Lamp and Fundus Exam Slit Lamp Exam Right Left Lids/Lashes Normal Normal Conjunctiva/Sclera White and quiet White and quiet Cornea Clear subepithelial haze centrally, trace Punctate epithelial erosions Anterior Chamber Deep and quiet Deep and quiet Iris Round and reactive Round and reactive Lens Clear Clear Edited by: Igor Lamas OTA; Suleiman Mcneil MD OPHTHALMOLOGY TESTING: [To insert test results, first enter the results in Doc Flowsheet and then use dot phrase .OPHTESTEXAM to choose the results module(s) to pull into this note] IMPRESSION / PLAN: Encounter Diagnosis Name Primary? Corneal opacity, unspecified Yes Plan: Discussed possibility that topical steroids might reduce corneal scarring and improve visual acuity in his left eye. Risks also discussed. He will start using prednisolone acetate 1% qid left eye, and follow-up in two weeks or sooner prn with problems. Would use artificial tears prn Scribe Attestation: I am scribing for Suleiman Mcneil MD while he is personally performing the service. Igor Lamas (Scribe) Time spent: documented in this encounter Plan of Treatment Not on filedocumented as of this encounter Visit Diagnoses Diagnosis Corneal opacity, unspecified - Primary documented in this encounter Discontinued Medications Medication Sig Discontinue Reason Start Date End Date erythromycin (ROMYCIN) 5 1/2 inch to left 08/03/2014 08/10/2014 mg/gram (0.5 %) ophthalmic eye every 4 hours ointment oxyCODONE-acetaminophen Take 1 Tab by 08/03/201409/2014 (PERCOCET) 5-325 mg per mouth every 6 tablet hours Daily Max: 4 Tabs documented as of this encounter Eye Exam Visual Acuity (Snellen - Linear) Right eye Left eye Dist cc 20/20- 20/80 +1 Dist ph cc 20/20- Correction: Glasses Tonometry defer Neuro/Psych Oriented x3: Yes Mood/Affect: Normal Slit Lamp Exam Right eye Left eye Lids/Lashes Normal Normal Conjunctiva/Sclera White and quiet White and quiet Cornea Clear subepithelial haze c entrally, trace Punctate epithelial erosions Anterior Chamber Deep and quiet Deep and quiet Iris Round and reactive Round and reactive Lens Clear Clear Care Teams Butt Welder Relationship Specialty Start Date End Date Maximus Cabral MD PCP - General 07/26/14 documented as of this encounter
--- OUTSIDE RECORDS SUMMARY | 2021-12-07 00:58 | XMS_ITS | Encounter Summary ---
:1975 Author Organization [facility] Address [address] [place] [address] Care Team Providers Name Role Phone Maximus Cabral MD Primary Care Provider [phone] Encounter Details Date Type Department Care Team Description 01/31/2016 Hospital Encounter [facility] - Octavio Nation ia Marii Cueva MD [address] [address] [address] [place] [id number] (Wo rk) Social History Tobacco Use Types [...] this encounter Discharge Diagnoses Diagnosis Z79.899 Other skilled nursing (current) drug t herapy-Z79.899[ICD-10-CM] documented in this encounter Medications at Time [...] on filedocumented in this encounter Care Teams Manager Learning Relationship Specialty Start Date End Date Maximus Cabral MD PCP - General 07/26/14 documented as of this encounter
--- OUTSIDE RECORDS SUMMARY | 2021-12-07 00:58 | XMS_ITS | Encounter Summary ---
:1975 Author Organization [facility] Address [address] [place] [address] Care Team Providers Name Role Phone Maximus Cabral MD Primary Care Provider [phone] Encounter Details Date Type Department Care Team Description 01/31/2016 Results Only [facility] Maximus Cabral, [address] [facility] [address] [place] [address] (Wo rk) Social History Tobacco Use Types [...] Procedure Name Priority Date/Time Associated Comments Diagnosis OPIATE PANEL Routine 01/31/2016 18:01 Results for this CONFIRMATION EDT procedure are i n the results section. documented in this encounter Results (ABNORMAL) OPIATE CONFIRMATION, URINE (01/31/2016 18:01 EDT) Pathologist Sig nature Codeine NEGATIVE <50 ng/mL [facility] Hydrocodone NEGATIVE <50 ng/mL [facility] Hydromorphone 556 (H) <50 ng/mL [facility] Morphine NEGATIVE <50 ng/mL [facility] Oxycodone NEGATIVE <50 ng/mL [facility] Oxymorphone NEGATIVE <50 ng/mL [facility] Comment: LABORATORY SERVICES Performed by: [facility], [address] [place] [address], Associate Director Of Development: Rita Redmond MD Specimen Urine Performing Organization Address City/State/ZIP Code Phon e Number [facility] [address] [place] [address] SERVICES documented in this encounter Visit Diagnoses Not on filedocumented in this encounter Care Teams Art Objects Supervisor Relationship Specialty Start Date End Date Maximus Cabral MD PCP - General 07/26/14 documented as of this encounter
--- OUTSIDE RECORDS SUMMARY | 2021-12-07 00:58 | XMS_ITS | Encounter Summary ---
:[address] [facility] Address [address] [place] [address] Care Team Providers Name Role Phone Maximus Cabral MD Primary Care Provider [phone] Encounter Details Date Type Department Care Team Description 11/14/2015 [facility] [id number] [place] [phone] (Wo rk) Social History Tobacco Use Types [...] on filedocumented in this encounter Care Teams Traffic Reporter Relationship Specialty Start Date End Date Maximus Cabral MD PCP - General 07/26/14 documented as of this encounter
--- OUTSIDE RECORDS SUMMARY | 2021-12-07 00:58 | XMS_ITS | Encounter Summary ---
:1975 Author Organization [facility] Address [address] [place] [address] Care Team Providers Name Role Phone Maximus Cabral MD Primary Care Provider [phone] Reason for Visit Reason Comments Rib Pain Encounter Details Date Type Department Care Team Description 12/23/2015 Hospital Encounter [facility] Marce Ha [address] [place] [phone] Back muscle spasm Urgent Care - Samantha Perez, Provider, (Primary Dx) [address] [id number] Social History Tobacco Use Types Packs/Day Years [...] Sign Reading Time Taken Comments Blood Pressure 124/78 12/23/2015 1617 EDT Pulse 98 12/23/2015 1617 EDT Temperature 35.6 ??C (96.1 ??F) 12/23/2015 1617 EDT Respiratory Rate - - Oxygen Saturation 97% 12/23/2015 161 EDT Inhaled Oxygen Concentration - - Weight - - Height - - Body Mass Index - - documented in this encounter Functional Status Cognitive Status Response Date of Assessment Because of a physical, mental, or emotional condition, do Ye s 08/03/2009 you have serious difficulty concentrating, remembering, or making decisions? (5 years old or older) documented as of this encounter Discharge Diagnoses Diagnosis M62.830 Muscle spasm of back-M62.830[ICD -10-CM] documented in this encounter Discharge Instructions AttachmentsThe following attachments cannot be sent through Care Everywhere.BACK PAIN (QATARI)documented in this encounter Medications at Time of [...] mouth daily. documented as of this encounter Ordered Prescriptions Prescription Sig Dispensed Refills Start Date End Date cyclobenzaprine (FLEXERIL) Take 1 Tab by 20 Tab 0 201509/13/2016 10 mg tablet mouth 3 times daily as needed for Muscle Spasms. documented in this encounter Discharge Disposition Disposition Code Departure Means Destination Home or Self Care Walk-out Home documented in this encounter ED Notes Dayanara Sherwood RN - 12/23/2015 0804 EDT Patients allergies reviewed prior to medication administration. Patient counseled on adverse reactions, side effects, and proper administration. Patient verbalized understanding. Toy Chen, Mihir Person NP - 12/23/2015 1652 EDT DOS: 12/23/2015 Chief Complaint Patient presents with ??? Rib Pain The patient is a 40 y.o. male who presents today with Rib Pain The patient presents for evaluation of left-sided rib pain. The patient had his his approximately 140 pound daughter walk on his back approximately one week ago. Shortly after that he began to experience left-sided back pain that radiated to his chest are around the rib cage. The patient states that he was working today lifting heavy objects when the pain became worse. The patient describes the pain as dull and sharp in nature. Nothing is done makes the pain better. The history is provided by the patient and the spouse. Rib Injury Pain location: L chest and L lateral chest Pain quality: dull and sharp Pain radiates to: Mid back Pain severity: Severe Onset quality: Sudden Duration: 1 week Timing: Constant Progression: Waxing and waning Chronicity: New Context: trauma Context: not breathing, not drug use, not eating, not intercourse, not lifting, not movement, not raising an arm, not at rest and not stress Context comment: The patient's ~140# daughter was walking on his back when the pain began. Relieved by: None tried Exacerbated by: Lifting. Ineffective treatments: None tried Associated symptoms: no abdominal pain, no dizziness, no fatigue, no fever, no headache, no nausea, no numbness, no palpitations, no shortness of breath, no vomiting and no weakness Review of Systems Constitutional: Negative for chills, fatigue and fever. Respiratory: Negative for chest tightness and shortness of breath. Cardiovascular: Negative for chest pain and palpitations. Gastrointestinal: Negative for abdominal pain, diarrhea, nausea and vomiting. Genitourinary: Negative for dysuria. Musculoskeletal: Negative for neck pain. Neurological: Negative for dizziness, weakness, numbness and headaches. All other systems reviewed and are negative. No current facility-administered medications for this encounter. Current Outpatient Prescriptions Medication Sig Dispense Refill ??? lithium carbonate 300 mg tablet Take 900 mg by mouth 3 times daily. ??? QUEtiapine (SEROQUEL XR) 300 mg XR tablet Take 300 mg by mouth daily. ??? sertraline (ZOLOFT) 50 mg tablet Take 50 mg by mouth daily. No Known Allergies Patient Active Problem List Diagnosis Date Noted ??? 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 Suicidal ideation 08/07/2009 ??? Depression 08/07/2009 Past Medical History Diagnosis Date ??? Psychiatric problem depression, ?bipolar Social History Substance Use Topics ??? Smoking status: Current Every Day Smoker Packs/day: 0.50 ??? Smokeless tobacco: Never Used Comment: Vape ??? Alcohol use No Comment: not currently-recovering from alcoholism History reviewed. No pertinent family history. BP 124/78 Pulse 98 Temp 96.1 ??F (35.6 ??C) (Tympanic) SpO2 97% Physical Exam Constitutional: He is oriented to person, place, and time. He appears well- developed and well-nourished. No distress. HENT: Head: Normocephalic and atraumatic. Right Ear: External ear normal. Left Ear: External ear normal. Nose: Nose normal. Mouth/Throat: Oropharynx is clear and moist. No oropharyngeal exudate. Eyes: Conjunctivae and EOM are normal. Pupils are equal, round, and reactive to light. Right eye exhibits no discharge. Left eye exhibits no discharge. No scleral icterus. Neck: Normal range of motion. Neck supple. No JVD present. No tracheal deviation present. Cardiovascular: Normal rate, regular rhythm, normal heart sounds and intact distal pulses. Exam reveals no gallop and no friction rub. No murmur heard. Pulmonary/Chest: Effort normal and breath sounds normal. No stridor. No respiratory distress. He hasno wheezes. He has no rales. He exhibits tenderness. Abdominal: Soft. Bowel sounds are normal. He exhibits no distension and no mass. There is no tenderness. There is no rebound and no guarding. Musculoskeletal: Normal range of motion. He exhibits no edema, tenderness or deformity. Muscle spasm present to the left Paraspinous region of the thoracic back. Lymphadenopathy: He has no cervical adenopathy. Neurological: He is alert and oriented to person, place, and time. He has normal reflexes. He displays normal reflexes. No cranial nerve deficit. He exhibits normal muscle tone. Coordination normal. Skin: Skin is warm and dry. No rash noted. He is not diaphoretic. No erythema. No pallor. Psychiatric: He has a normal mood and affect. His behavior is normal. Judgment and thought content normal. Nursing note and vitals reviewed. Consult orders: None PCP: Maximus Cabral No results found for this visit on 12/23/15. Radiology orders: CHEST PA AND LATERAL RIBS UNI 2 VIEWS LEFT Imaging Results None No orders to display Relevant Data Procedures URGENT CARE COURSE A medical screening exam was performed. ASSESSMENT AND PLAN Final diagnoses: None Dr. Roaxna Fallon was available for consultation during my care of this patient. DISPOSITION: No disposition on file The patient's pain was managed to an adequate level weighing risk vs. benefit of further medications. Upon departure from [facility], the patient's pain was 4 on a zero to ten scale. Condition at departure from the [facility] : Stable [facility] 12/23/2015 16:52 17:51: X-rays reviewed and showed no acute rib fracture. Will treat the patient for his back spasms.Patient will be prescribed Flexeril for this. The patient is to return to urgent care for severe pain, loss of bowel/bladder function, inability to walk, or any other new or concerning symptoms. The patient to follow up with his primary care provider in 3 days for recheck of symptoms. The patient verbalized understanding of this plan as well as agreement. Dayanara Sherwood RN - 12/23/2015 1622 EDT Pt relates his daughter was walking on his back 1 week ago, ever since has left sided rib pain. Alsorelates swelling in area, shooting pain through left arm intermittently. Pain is described as stabbing, present constantly, worse with movement, relieved with rest, SOB with inspiration. Has tried tylenol/ibuprofen without relief. Denies additional numbness/tingling in extremities, spine pain. documented in this encounter Plan of Treatment Not on filedocumented as of this encounter Procedures Procedure Name Priority Date/Time Associated Diagnosis Comme nts CHEST PA AND STAT 12/23/2015 17:02 Results for this LATERAL EDT procedure are i n the results section. RIBS UNI 2 VIEWS STAT 12/23/2015 17:02 Results for this LEFT EDT procedure are i n the results section. documented in this encounter Results RIBS UNI 2 VIEWS LEFT (12/23/2015 17:02 EDT) Anatomical Region Laterality Modality Other Specimen Narrative [facility] - 12/23/2015 18:09 EDT RIBS UNI 2 VIEWS LEFT, CHEST PA AND LATERAL ??12/23/2015 5:02 PM Signs and Symptoms/Comments: ??RIB PAIN Comparison:None Technique: Two views of the chest with dual-energy technique were performed, with bone and soft tissue reconstruction s. AP and oblique views of the left ribs were additionally obtained . Findings: The cardiomediastinal silhouette and pul monary vascularity are unremarkable. The lungs are clear. Hazy opacity within the posterior aspect the lung bases seen on lateral view is likel y secondary to poor lung inflation. There is no evidence of pleural disease. The bones and soft tissues are without a cute abnormality. No rib fracture is identified. Impression: 1. No rib fracture is identified. Of not e, nondisplaced rib fractures may be occult on plain film x- ray. 2. Hazy opacity in the posterior lung ba ses is likely secondary to underinflation, however a small degree o f atelectasis may be present. I have personally reviewed the images an d the above interpretation and agree with the findings. Procedure Note Mary Borrego MD - 12/23/2015 RIBS UNI 2 VIEWS LEFT, CHEST PA AND LATE RAL 12/23/2015 5:02 PM Signs and Symptoms/Comments: RIB PAIN Comparison:None Technique: Two views of the chest with dual-energy technique were performed, with bone and soft tissue reconstruction s. AP and oblique views of the left ribs were additionally obtained . Findings: The cardiomediastinal silhouette and pul monary vascularity are unremarkable. The lungs are clear. Hazy opacity within the posterior aspect the lung bases seen on lateral view is likel y secondary to poor lung inflation. There is no evidence of pleural disease. The bones and soft tissues are without a cute abnormality. No rib fracture is identified. Impression: 1. No rib fracture is identified. Of not e, nondisplaced rib fractures may be occult on plain film x- ray. 2. Hazy opacity in the posterior lung ba ses is likely secondary to underinflation, however a small degree o f atelectasis may be present. I have personally reviewed the images an d the above interpretation and agree with the findings. Performing Organization Address City/State/ZIP Code Phon e Number [facility] CHEST PA AND LATERAL (12/23/2015 17:02 EDT) Anatomical Region Laterality Modality Other Specimen Narrative [facility] - 12/23/2015 18:09 EDT RIBS UNI 2 VIEWS LEFT, CHEST PA AND LATERAL ??12/23/2015 5:02 PM Signs and Symptoms/Comments: ??RIB PAIN Comparison:None Technique: Two views of the chest with dual-energy technique were performed, with bone and soft tissue reconstruction s. AP and oblique views of the left ribs were additionally obtained . Findings: The cardiomediastinal silhouette and pul monary vascularity are unremarkable. The lungs are clear. Hazy opacity within the posterior aspect the lung bases seen on lateral view is likel y secondary to poor lung inflation. There is no evidence of pleural disease. The bones and soft tissues are without a cute abnormality. No rib fracture is identified. Impression: 1. No rib fracture is identified. Of not e, nondisplaced rib fractures may be occult on plain film x- ray. 2. Hazy opacity in the posterior lung ba ses is likely secondary to underinflation, however a small degree o f atelectasis may be present. I have personally reviewed the images an d the above interpretation and agree with the findings. Procedure Note Mary Borrego MD - 12/23/2015 RIBS UNI 2 VIEWS LEFT, CHEST PA AND LATE RAL 12/23/2015 5:02 PM Signs and Symptoms/Comments: RIB PAIN Comparison:None Technique: Two views of the chest with dual-energy technique were performed, with bone and soft tissue reconstruction s. AP and oblique views of the left ribs were additionally obtained . Findings: The cardiomediastinal silhouette and pul monary vascularity are unremarkable. The lungs are clear. Hazy opacity within the posterior aspect the lung bases seen on lateral view is likel y secondary to poor lung inflation. There is no evidence of pleural disease. The bones and soft tissues are without a cute abnormality. No rib fracture is identified. Impression: 1. No rib fracture is identified. Of not e, nondisplaced rib fractures may be occult on plain film x- ray. 2. Hazy opacity in the posterior lung ba ses is likely secondary to underinflation, however a small degree o f atelectasis may be present. I have personally reviewed the images an d the above interpretation and agree with the findings. Performing Organization Address City/State/ZIP Code Phon e Number [facility] documented in this encounter Visit Diagnoses Diagnosis Back muscle spasm - Primary Other symptoms referable to back documented in this encounter Administered Medications Inactive Administered Medications - up to 3 most recent administrations Medication Order MAR Action Action Date Dose Rate Site Cyclobenzaprine 10 mg Tab STARTER Given 12/23/2015 17:56 EDT 1 P ackage PACK 1 Package, oral, NOW X1, 1 dose, On 12/23/15 at 1800, Routine documented in this encounter Discontinued Medications Medication Sig Discontinue Reason Start Date End Date citalopram (CELEXA) 20 mg Take 1 Tab by mouth Therapy completed 01/201012/23/2015 tablet daily. venlafaxine (EFFEXOR) 50 Take 75 mg by mouth Therapy completed 12/23/2015 mg tablet 2 times daily traMADol (ULTRAM) 50 mg Take 1 Tab by mouth Therapy completed 05/1712/23/2015 tablet every 8 hours as needed for Pain Daily Max: 150 mg documented as of this encounter Historical Medications This list may reflect changes made after this encounter. Medication Sig Dispensed Refills Start Date End Date sertraline (ZOLOFT) 50 mg Take 150 mg by mouth 0 tablet daily. lithium carbonate 300 mg Take 1,200 mg by 0 tablet mouth daily. QUEtiapine (SEROQUEL XR) Take 300 mg by mouth 0 09/13/2016 300 mg XR tablet daily. added in this encounter Active and Recently Administered Medications Times are shown in EDT. Scheduled Medication Order 12/21/2015 12/22/2015 12/23/2015 Cyclobenzaprine 10 mg Tab STARTER PACK (COMPLETED) 5840 (Given - Provider: Dayanara Sherwood RN - Comment: 1 dose given here) 1 Package, oral, NOW X1, 1 dose, 12/23/15 at 1800, Routine documented in this encounter Care Teams Cook Specialty Foreign Food Relationship Specialty Start Date End Date Maximus Cabral MD PCP - General 07/26/14 documented as of this encounter
--- OUTSIDE RECORDS SUMMARY | 2021-12-07 00:58 | XMS_ITS | Encounter Summary ---
:1975 Author Organization [facility] Address [address] [place] [address] Care Team Providers Name Role Phone None, Provider Primary Care Provider Unavailable Encounter Details Date Type Department Care Team Description 04/13/2014 Results Only [facility] Maximus Cabral, Laboratory Services - [address] [place] [address] [place], [place] [phone] (Wo rk) Social History Tobacco Use Types [...] Name Priority Date/Time Associated Diagnosis Comme nts TESTOSTERONE, TOTAL Routine 04/13/2014 8:05 EST R esults for this AND FREE procedure are i n the results section. documented in this encounter Results TESTOSTERONE, TOTAL AND FREE (04/13/2014 8:05 EST) Sex Hormone 55.3 17.3 - 65.[address] [facility] Binding Globulin nmol/L LABORATORY SERVICES Testosterone, 363 241 - [address] [facility] Total ng/dl LABORATORY SERVICES Testosterone, 5.2 5.0 - 21.[address] [facility] Free Comment: ng/dl LABORATORY Test not recommended in patients with SER VICES plasma protein abnormalities. Specimen Blood Performing Organization Address City/State/ZIP Code Phon e Number [facility] [address] [place] [address] SERVICES documented in this encounter Visit Diagnoses Not on filedocumented in this encounter Care Teams Daylight Driller Relationship Specialty Start Date End Date None, Provider PCP - General 07/11/09 07/25/14 documented as of this encounter
--- OUTSIDE RECORDS SUMMARY | 2021-12-07 00:58 | XMS_ITS | Encounter Summary ---
:1975 Author Organization [facility] Address [address] [place] [address] Care Team Providers Name Role Phone Maximus Cabral MD Primary Care Provider [phone] Reason for Visit Reason Comments Eye Exam Emergency visit: recheck cor jodi abrasion (dx 07/26/2014 Dr Fowler) which has been slow to heal. Pt reports something catching. Very photophobic; [place] is terrible. Ctlns wearer occasionally for sports; did not sleep in lenses. No F/F. Pain 10/14. Eye Injury Pt reports that he wore ctln s 07/24/2014 for a run; ctlns were in eyes for about 6 hrs. Whe n he tried to remove left lens, the lens moved off his cornea; h e believes he may have scratched cornea while trying to remov e the ctlns. Medication Management Percocet 5/325 q6 hrs and Ad kristen; erythromycin q2 hrs alternating with lubricating ointment Refresh PM. Encounter Details Date Type Department Care Team Description 08/04/2014 Office Visit [facility] Suleiman Mcneil Ophthalmology - Ike Person MD [address] [address] [address], [place] [address] (Wo rk) Social History Tobacco [...] as of this encounter Discharge Diagnoses Diagnosis 371.30 CORNEA MEMB CHANGE NOS[ICD-9-CM] documented in this encounter Progress Notes Suleiman Mcneil MD - 08/04/2014 1234 EDT Department of Ophthalmology / Cataract/Cornea Office Visit Note Referring physician: Keyshawn Fowler Local [employer] Body Service Mechanic: Family Physician (PCP): Maximus Cabral MD Other Physician: History of Present Illness: This HPI section must be documented by the physician (or scribe upon the dictation of the physician). It should not be documented independently by the rv repair technician/scribe in the absence of the physician. Patient presents with ??? Eye Exam Emergency visit: recheck corneal abrasion (dx 07/26/2014 Dr Fowler) which has been slow to heal. Pt reports something catching. Very photophobic; [place] is terrible. Ctlns wearer occasionally for sports; did not sleep in lenses. No F/F. Pain 10/14. ??? Eye Injury Pt reports that he wore ctlns 07/24/2014 for a run; ctlns were in eyes for about 6 hrs. When he tried to remove left lens, the lens moved off his cornea; he believes he may have scratched cornea while trying to remove the ctlns. ??? Medication Management Percocet 5/325 q6 hrs and Advil; erythromycin q2 hrs alternating with lubricating ointment Refresh PM. Pain: 7 / 10 Left Eye Flashes: No Floaters: No Controls: Diabetes :No Hypertension:No Tobacco:No EXAMINATION: Base Eye Exam Visual Acuity (Snellen - Linear) Right Left Dist cc 20/200 -1 Dist ph cc 20/100-2 Correction: Glasses Neuro/Psych Oriented x3: Yes Mood/Affect: Normal Slit Lamp and Fundus Exam Slit Lamp Exam Right Left Lids/Lashes Normal Normal Conjunctiva/Sclera White and quiet White and quiet Cornea irreg epithelial, no epi defect Anterior Chamber Deep and quiet Deep and quiet Iris Round and reactive Round and reactive Lens Clear Edited by: Igor Lamas OTA OPHTHALMOLOGY TESTING: [To insert test results, first enter the results in Doc Flowsheet and then use dot phrase .OPHTESTEXAM to choose the results module(s) to pull into this note] IMPRESSION / PLAN: Encounter Diagnosis Name Primary? Corneal epithelial defect Yes -eye pain -persistent corneal epithelial defect left eye has finally resolved, but eye pain persists - etiology unclear Plan: Continue erythromycin ophthalmic surjit alternating [id number] while awake with a lubricating ophthalmic surjit. F/u early next week. Scribe Attestation: I am scribing for Suleiman Mcneil MD while he is personally performing the service. Igor Lamas (Scribe) Time spent: documented in this encounter Plan of Treatment Not on filedocumented as of this encounter Visit Diagnoses Diagnosis Corneal epithelial defect - Primary Corneal membrane change, unspecified documented in this encounter Eye Exam Visual Acuity (Snellen - Linear) Right eye Left eye Dist cc 20/200 -1 Dist ph cc 20/100-2 Correction: Glasses Neuro/Psych Oriented x3: Yes Mood/Affect: Normal Slit Lamp Exam Right eye Left eye Lids/Lashes Normal Normal Conjunctiva/Sclera White and quiet White and quiet Cornea irreg epithelial, no epi defect Anterior Chamber Deep and quiet Deep and quiet Iris Round and reactive Round and reactive Lens Clear Care Teams Line Operator Relationship Specialty Start Date End Date Maximus Cabral MD PCP - General 07/26/14 documented as of this encounter
--- OUTSIDE RECORDS SUMMARY | 2021-12-07 00:58 | XMS_ITS | Encounter Summary ---
:1975 Author Organization [facility] Address [address] [place] [address] Care Team Providers Name Role Phone Maximus Cabral MD Primary Care Provider [phone] Reason for Visit Reason Comments Follow-up corneal abrasion left eye -- c/o continued intolerable pain, maybe slightly better from yesterday, hurts all the time -- using antibiotic gtts as directed -- no changes to ri ght eye Encounter Details Date Type Department Care Team Description 07/27/2014 Office Visit [facility] Keyshawn Fowler MD Ophthalmology - [address], [address] [place], [place] [id number] [place] [address] [phone] [id number] (Wo rk) Social History Tobacco Use [...] Date HYDROcodone-acetaminophen Take 1 Tab by mouth 5 Tab 0 0 07/27/2014 07/29/2014 (NORCO) 5-325 mg tablet every 6 hours as needed for Pain Daily Max: 4 Tabs documented in this encounter Progress Notes Keyshawn Fowler MD - 07/27/2014 1139 EDT Chief Complaint Patient presents with ??? Follow-up corneal abrasion left eye -- c/o continued intolerable pain, maybe slightly better from yesterday, hurts all the time -- using antibiotic gtts as directed -- no changes to right eye HPI :The patient is a 38 y.o. male Right Eye: NL Left Eye: Visual Aid: Current Rx Age Location: Pain: Quality: Severity: Duration: Timing: Lasts: Context: Modifying factors: Associated Signs & Symptoms: Attestation: ROS Constitutional: NL ENT/Mouth NL Cardiovascular: NL Respiratory: NL Gastrointestinal: NL Genitourinary: Musculoskeletal: Integumentary: Neurologic: NL Psychiatric: (severe anxiety 2/2 eye pain) Endocrine: Hematologic: Immunologic: Dehydrator: Exposures: Other: Attestation: The above ROS has been reviewed by the Attending Physician Allergies include: Review of patient's allergies indicates no known allergies. Patient Active Problem List Diagnosis ??? Suicidal ideation ??? Depression Outpatient Prescriptions Marked as Taking for the 07/27/14 encounter (Office Visit) with Keyshawn Fowler MD Medication Sig ??? ofloxacin (OCUFLOX) 0.3 % ophthalmic solution [...] - Linear) Right Left Dist cc 20/20 20/40- Slit Lamp and Fundus Exam External Exam Right Left External Normal 1+ periorb edema and trace erythema Slit Lamp Exam Right Left Lids/Lashes Normal as above Conjunctiva/Sclera White and quiet trace injection Cornea Clear large central epi defect, 7 x 6 mm, healing edges, no infiltrate, no thinning Anterior Chamber Deep and quiet Deep and quiet Iris Round and reactive Round and reactive Lens Clear Clear Vitreous Normal Normal Fundus Exam Right Left Disc Normal Normal C/D Ratio 0.2 ~0.2 Macula Normal Normal Vessels Normal Normal Edited by: Keyshawn Fowler MD IMPRESSION & PLAN: 1. Corneal abrasion, left -- beginning to heal but pt still in severe pain, tearful on exam -- cont oflox QID OS, add vicodin 5/325 1 tab PO Q6H PRN mod- severe pain (dispensed five), also rec cooled ATs PRN -- replaced BCL and seems to fit appropriately -- pt to call tomorrow if still in bad pain, otherwise F/U 2 D I have reviewed the past medical, [...] injury of cornea documented in this encounter Eye Exam Visual Acuity (Snellen - Linear) Right eye Left eye Dist cc 20/20 20/40- External Exam Right eye Left eye External Normal 1+ periorb edema and trace erythema Slit Lamp Exam Right eye Left eye Lids/Lashes Normal as above Conjunctiva/Sclera White and quiet trace injection Cornea Clear large central epi de fect, 7 x 6 mm, healing edges, no infiltrate , no thinning Anterior Chamber Deep and quiet Deep and quiet Iris Round and reactive Round and reactive Lens Clear Clear Vitreous Normal Normal Fundus Exam Right eye Left eye Disc Normal Normal C/D Ratio 0.2 ~0.2 Macula Normal Normal Vessels Normal Normal Care Teams Equipment Detailer Relationship Specialty Start Date End Date Maximus Cabral MD PCP - General 4/21/15 documented as of this encounter
--- OUTSIDE RECORDS SUMMARY | 2021-12-07 00:58 | XMS_ITS | Encounter Summary ---
:1975 Author Organization [facility] Address [address] [place] [address] Care Team Providers Name Role Phone Maximsu Cabral MD Primary Care Provider [phone] Reason for Visit Reason Comments Eye Problem Corneal abrasion left eye wi th increased pain and burning (12/15), tearing, VA unchanged. Encounter Details Date Type Department Care Team Description 08/03/2014 Office Visit [facility] Keyshawn Fowler MD Ophthalmology - [address], [address], [address] [place], [place] [address] [place] [address] [phone] [id number] (Wo rk) Social History Tobacco Use [...] Sig Dispensed Refills Start Date End Date erythromycin (ROMYCIN) 5 1/2 inch to left 1 Tube 0 08/0308/10/2014 mg/gram (0.5 %) ophthalmic eye every 4 hours ointment oxyCODONE-acetaminophen Take 1 Tab by mouth 6 Tab 0 08/10/2014 (PERCOCET) 5-325 mg per every 6 hours Daily tablet Max: 4 Tabs documented in this encounter Progress Notes Keyshawn Fowler MD - 08/03/2014 0951 EDT Chief Complaint Patient presents with ??? Eye Problem Corneal abrasion left eye with increased pain and burning (/10), tearing, VA unchanged. HPI :The patient is a 38 y.o. male Right Eye: NL Left Eye: Blurred Vision, Tearing, Pain/Soreness, Glare or Light Sensitivity Visual Aid: Glasses Current Rx Age Location: Left eye Pain: 9 Quality: Stabbing, Sharp Severity: Severe Duration: Days Timing: Constant Lasts: Continuous Context: Corneal abrasion Modifying factors: Increased pain and burning Associated Signs & Symptoms: BCL Attestation: ROS Constitutional: NL ENT/Mouth NL Cardiovascular: NL Respiratory: NL Gastrointestinal: NL Genitourinary: NL Musculoskeletal: NL Integumentary: NL Neurologic: NL Psychiatric: NL Endocrine: NL Hematologic: NL Immunologic: NL Assistant Softball Coach: Exposures: None Other: Attestation: Allergies include: Review of patient's allergies indicates no known allergies. Patient Active Problem List Diagnosis ??? Suicidal ideation ??? Depression Outpatient Prescriptions Marked as Taking for the 08/03/14 encounter (Office Visit) with Keyshawn Fowler MD Medication Sig ??? buPROPion (WELLBUTRIN) 75 mg tablet Take 1 Tab by mouth 2 times daily. ??? citalopram (CELEXA) 20 mg tablet Take 1 Tab by mouth daily. ??? clonazepam (KLONOPIN) 1 mg tablet Take 1 Tab by mouth 2 times daily. ??? clonazepam (KLONOPIN) 1 mg tablet Take 1 Tab by mouth twice daily with lunch and dinner. ??? HYDROcodone-acetaminophen (NORCO) 5-325 mg tablet Take 1 Tab by mouth every 6 hours as needed for Pain Daily Max: 4 Tabs ??? MOXIFLOXACIN HCL (VIGAMOX OPHTHALMIC) Apply to eye Past Medical History Diagnosis Date ??? Psychiatric [...] - Linear) Right Left Dist cc 20/20 20/80 Dist ph cc 20/50 Correction: Glasses Dilated left eye Neuro/Psych Oriented x3: Yes Mood/Affect: Normal Slit Lamp and Fundus Exam External Exam Right Left External Normal trace periorb edema and erythema Slit Lamp Exam Right Left Lids/Lashes Normal as above Conjunctiva/Sclera White and quiet trace injection Cornea Clear, no ABMD healing epi defect, 3.5x2 mm, no infiltrate, no thinning Anterior Chamber Deep and quiet Deep and quiet Iris Round and reactive Round and reactive Lens Clear Clear Vitreous Normal Normal Fundus Exam Right Left Disc Normal Normal C/D Ratio 0.2 ~0.2 Macula Normal Normal Vessels Normal Normal Edited by: Lucy Ring OTA; Keyshawn Fowler MD IMPRESSION & PLAN: 1. Corneal abrasion, left -- continues slow healing -- no infiltrate -- added cycloplegia yesterday but pain unchanged, moderated with Vicodin -- per SMP leave BCL out, use e'mycin surjit, alternating with lubricating surjit Q2H -- stop Vicodin and add Percocet 5/325 1 PO Q5-6 H PRN mod-severe pain F/U 1 D with SMP I have reviewed the past medical, family, [...] Sig Discontinue Reason Start Date End Date HYDROcodone-acetaminophen Take 1 Tab by mouth Dose adjustment 08/0208/03/2014 (NORCO) 5-325 mg tablet every 6 hours as needed for Pain Daily Max: 4 Tabs MOXIFLOXACIN HCL (VIGAMOX Apply to eye OPHTHALMIC) documented as of this encounter Eye Exam Visual Acuity (Snellen - Linear) Right eye Left eye Dist cc 20/20 20/80 Dist ph cc 20/50 Correction: Glasses Dilated left eye Neuro/Psych Oriented x3: Yes Mood/Affect: Normal External Exam Right eye Left eye External Normal trace periorb edema and erythema Slit Lamp Exam Right eye Left eye Lids/Lashes Normal as above Conjunctiva/Sclera White and quiet trace injection Cornea Clear, no ABMD healing epi defect, 3.5x2 mm, no infiltrate, no thinning Anterior Chamber Deep and quiet Deep and quiet Iris Round and reactive Round and reactive Lens Clear Clear Vitreous Normal Normal Fundus Exam Right eye Left eye Disc Normal Normal C/D Ratio 0.2 ~0.2 Macula Normal Normal Vessels Normal Normal Care Teams Auto Dismantler Relationship Specialty Start Date End Date Maximus Cabral MD PCP - General 07/26/14 documented as of this encounter
--- OUTSIDE RECORDS SUMMARY | 2021-12-07 00:58 | XMS_ITS | Encounter Summary ---
:1975 Author Organization [facility] Address [address] [place] [address] Care Team Providers Name Role Phone Maximus Cabral MD Primary Care Provider [phone] Encounter Details Date Type Department Care Team Description 02/13/2016 Hospital Encounter [facility] - S Nikhil Pratt, [address] [facility] [address] [place] [address] [place] [address] (Wo rk) Social History Tobacco Use Types [...] as of this encounter Discharge Diagnoses Diagnosis M54.6 Pain in thoracic spine-M54.6[ICD-1 0-CM] documented in this encounter Medications at Time [...] on filedocumented in this encounter Care Teams Fur Finisher Tailor Relationship Specialty Start Date End Date Maximus Cabral MD PCP - General 07/26/14 documented as of this encounter
--- OUTSIDE RECORDS SUMMARY | 2021-12-07 00:58 | XMS_ITS | Encounter Summary ---
:1975 Author Organization [facility] Address [address] [place] [address] Care Team Providers Name Role Phone Maximus Cabral MD Primary Care Provider [phone] Encounter Details Date Type Department Care Team Description 03/28/2016 Results Only [facility]- Maximus Cabral Imaging PRISM MD Anay [phone] [facility] [address] [place] [address] (Wo rk) Social History Tobacco [...] Name Priority Date/Time Associated Diagnosis Comme nts MR LUMBAR SPINE WO 03/28/2016 16:07 Resul ts for this CONTRAST EST procedure are i n the results section. MR THORACIC SPINE 03/28/2016 16:05 Result s for this WO CONTRAST EST procedure are i n the results section. documented in this encounter Results MR LUMBAR SPINE WO CONTRAST (03/28/2016 16:07 EST) Anatomical Region Laterality Modality Other Specimen Narrative [facility] [place] - 03/28/2016 17:38 EST MR LUMBAR SPINE WO CONTRAST, MR THORACIC SPINE WO CONTRAST ?? 03/28/2016 4:07 PM Signs and Symptoms/Comments: ?? Mid and low back pain- severe x weeks, r ecent weight gain. COMPARISON: None TECHNIQUE: Multiplanar, multisequence MR images of the thoracic and lumbar spine were acquired without intravenous administration of contrast. FINDINGS: THORACIC SPINE: The thoracic spine demonstrates normal a lignment. Vertebral body heights are maintained. The marrow signa l pattern is normal. Central very mild narrowing at T8-9, the disc sp aces are normal. No disc herniations. No spinal canal stenosis. No neural fora lencho narrowing. At the T4 level, there is a very mild co ntour irregularity of the dorsal spinal cord. On axial images, at this level, the dorsal cord appears minimally flattens compared to l evels both cranial and caudal to this. This flattening is best seen on sagittal image #7 of series 303 and axial image #14 of series 501. No abnormal signal within the spinal cord itself. The remai nder of the thoracic spinal cord is normal. The included soft tissues are unremarkab le. LUMBAR SPINE: The lumbar spine demonstrates normal ali gnment. Vertebral body heights are maintained. There is a small amount of T1 and T2 hyperintense signal, anteroinferior endp late of T12, likely fatty marrow. Disc spaces are normal. Incident al small Schmorl's node, superior endplate of L3. The conus medullaris ends at T12, within normal limits. The distal spinal cord and cauda equina nerve roots are normal. Evaluation of individual levels demonstr ates: T12-L1: Mild degenerative endplate chun es at this level, with protuberant anterior osteophytosis. L1-2: No spinal canal or neural foramina l narrowing. L2-3: No spinal canal or neural foramina l narrowing. L3-4: No spinal canal or neural foramina l narrowing. L4-5: Minimal global disc bulge, with no spinal canal or neural foraminal narrowing. L5-S1: Mild right central global disc bu lge, with no significant spinal canal stenosis, and no neural for aminal narrowing. The included soft tissues are unremarkab le. IMPRESSION: 1. The thoracic spinal cord has a slight ly flattened posterior contour at the T4 level and is normal at all other levels. This appearance is nonspecific but could be s een in very early idiopathic spinal cord herniation versus dorsal int radural arachnoid cyst. If there are any neurologic symptoms that w ould relate to this level, a CT myelogram of the thoracic spine could be obtained to assess for dorsal arachnoid cyst. If there are no c linical symptoms corresponding to this level, this may be an incidental and clinically insignificant finding. 2. Essentially normal lumbar spine MRI w ith no spinal canal or neural foraminal stenosis in the lumbar levels. I have personally reviewed the images an d the above interpretation and agree with the findings. Procedure Note Raza Moreau P - 03/28/2016 MR LUMBAR SPINE WO CONTRAST, MR THORACIC SPINE WO CONTRAST 03/28/2016 4:07 PM Signs and Symptoms/Comments: Mid and low back pain- severe x weeks, r ecent weight gain. COMPARISON: None TECHNIQUE: Multiplanar, multisequence MR images of the thoracic and lumbar spine were acquired without intravenous administration of contrast. FINDINGS: THORACIC SPINE: The thoracic spine demonstrates normal a lignment. Vertebral body heights are maintained. The marrow signa l pattern is normal. Central very mild narrowing at T8-9, the disc sp aces are normal. No disc herniations. No spinal canal stenosis. No neural fora lencho narrowing. At the T4 level, there is a very mild co ntour irregularity of the dorsal spinal cord. On axial images, at this level, the dorsal cord appears minimally flattens compared to l evels both cranial and caudal to this. This flattening is best seen on sagittal image #7 of series 303 and axial image #14 of series 501. No abnormal signal within the spinal cord itself. The remai nder of the thoracic spinal cord is normal. The included soft tissues are unremarkab le. LUMBAR SPINE: The lumbar spine demonstrates normal ali gnment. Vertebral body heights are maintained. There is a small amount of T1 and T2 hyperintense signal, anteroinferior endp late of T12, likely fatty marrow. Disc spaces are normal. Incident al small Schmorl's node, superior endplate of L3. The conus medullaris ends at T12, within normal limits. The distal spinal cord and cauda equina nerve roots are normal. Evaluation of individual levels demonstr ates: T12-L1: Mild degenerative endplate chun es at this level, with protuberant anterior osteophytosis. L1-2: No spinal canal or neural foramina l narrowing. L2-3: No spinal canal or neural foramina l narrowing. L3-4: No spinal canal or neural foramina l narrowing. L4-5: Minimal global disc bulge, with no spinal canal or neural foraminal narrowing. L5-S1: Mild right central global disc bu lge, with no significant spinal canal stenosis, and no neural for aminal narrowing. The included soft tissues are unremarkab le. IMPRESSION: 1. The thoracic spinal cord has a slight ly flattened posterior contour at the T4 level and is normal at all other levels. This appearance is nonspecific but could be s een in very early idiopathic spinal cord herniation versus dorsal int radural arachnoid cyst. If there are any neurologic symptoms that w ould relate to this level, a CT myelogram of the thoracic spine could be obtained to assess for dorsal arachnoid cyst. If there are no c linical symptoms corresponding to this level, this may be an incidental and clinically insignificant finding. 2. Essentially normal lumbar spine MRI w ith no spinal canal or neural foraminal stenosis in the lumbar levels. I have personally reviewed the images an d the above interpretation and agree with the findings. Performing Organization Address City/State/ZIP Code Phon e Number [facility] [place] MR THORACIC SPINE WO CONTRAST (03/28/2016 16:05 EST) Anatomical Region Laterality Modality Other Specimen Narrative [facility] MRI [facility] - 03/28/2016 17:38 EST MR LUMBAR SPINE WO CONTRAST, MR THORACIC SPINE WO CONTRAST ?? 03/28/2016 4:07 PM Signs and Symptoms/Comments: ?? Mid and low back pain- severe x weeks, r ecent weight gain. COMPARISON: None TECHNIQUE: Multiplanar, multisequence MR images of the thoracic and lumbar spine were acquired without intravenous administration of contrast. FINDINGS: THORACIC SPINE: The thoracic spine demonstrates normal a lignment. Vertebral body heights are maintained. The marrow signa l pattern is normal. Central very mild narrowing at T8-9, the disc sp aces are normal. No disc herniations. No spinal canal stenosis. No neural fora lencho narrowing. At the T4 level, there is a very mild co ntour irregularity of the dorsal spinal cord. On axial images, at this level, the dorsal cord appears minimally flattens compared to l evels both cranial and caudal to this. This flattening is best seen on sagittal image #7 of series 303 and axial image #14 of series 501. No abnormal signal within the spinal cord itself. The remai nder of the thoracic spinal cord is normal. The included soft tissues are unremarkab le. LUMBAR SPINE: The lumbar spine demonstrates normal ali gnment. Vertebral body heights are maintained. There is a small amount of T1 and T2 hyperintense signal, anteroinferior endp late of T12, likely fatty marrow. Disc spaces are normal. Incident al small Schmorl's node, superior endplate of L3. The conus medullaris ends at T12, within normal limits. The distal spinal cord and cauda equina nerve roots are normal. Evaluation of individual levels demonstr ates: T12-L1: Mild degenerative endplate chun es at this level, with protuberant anterior osteophytosis. L1-2: No spinal canal or neural foramina l narrowing. L2-3: No spinal canal or neural foramina l narrowing. L3-4: No spinal canal or neural foramina l narrowing. L4-5: Minimal global disc bulge, with no spinal canal or neural foraminal narrowing. L5-S1: Mild right central global disc bu lge, with no significant spinal canal stenosis, and no neural for aminal narrowing. The included soft tissues are unremarkab le. IMPRESSION: 1. The thoracic spinal cord has a slight ly flattened posterior contour at the T4 level and is normal at all other levels. This appearance is nonspecific but could be s een in very early idiopathic spinal cord herniation versus dorsal int radural arachnoid cyst. If there are any neurologic symptoms that w ould relate to this level, a CT myelogram of the thoracic spine could be obtained to assess for dorsal arachnoid cyst. If there are no c linical symptoms corresponding to this level, this may be an incidental and clinically insignificant finding. 2. Essentially normal lumbar spine MRI w ith no spinal canal or neural foraminal stenosis in the lumbar levels. I have personally reviewed the images an d the above interpretation and agree with the findings. Procedure Note Raza Moreau P - 03/28/2016 MR LUMBAR SPINE WO CONTRAST, MR THORACIC SPINE WO CONTRAST 03/28/2016 4:07 PM Signs and Symptoms/Comments: Mid and low back pain- severe x weeks, r ecent weight gain. COMPARISON: None TECHNIQUE: Multiplanar, multisequence MR images of the thoracic and lumbar spine were acquired without intravenous administration of contrast. FINDINGS: THORACIC SPINE: The thoracic spine demonstrates normal a lignment. Vertebral body heights are maintained. The marrow signa l pattern is normal. Central very mild narrowing at T8-9, the disc sp aces are normal. No disc herniations. No spinal canal stenosis. No neural fora lencho narrowing. At the T4 level, there is a very mild co ntour irregularity of the dorsal spinal cord. On axial images, at this level, the dorsal cord appears minimally flattens compared to l evels both cranial and caudal to this. This flattening is best seen on sagittal image #7 of series 303 and axial image #14 of series 501. No abnormal signal within the spinal cord itself. The remai nder of the thoracic spinal cord is normal. The included soft tissues are unremarkab le. LUMBAR SPINE: The lumbar spine demonstrates normal ali gnment. Vertebral body heights are maintained. There is a small amount of T1 and T2 hyperintense signal, anteroinferior endp late of T12, likely fatty marrow. Disc spaces are normal. Incident al small Schmorl's node, superior endplate of L3. The conus medullaris ends at T12, within normal limits. The distal spinal cord and cauda equina nerve roots are normal. Evaluation of individual levels demonstr ates: T12-L1: Mild degenerative endplate chun es at this level, with protuberant anterior osteophytosis. L1-2: No spinal canal or neural foramina l narrowing. L2-3: No spinal canal or neural foramina l narrowing. L3-4: No spinal canal or neural foramina l narrowing. L4-5: Minimal global disc bulge, with no spinal canal or neural foraminal narrowing. L5-S1: Mild right central global disc bu lge, with no significant spinal canal stenosis, and no neural for aminal narrowing. The included soft tissues are unremarkab le. IMPRESSION: 1. The thoracic spinal cord has a slight ly flattened posterior contour at the T4 level and is normal at all other levels. This appearance is nonspecific but could be s een in very early idiopathic spinal cord herniation versus dorsal int radural arachnoid cyst. If there are any neurologic symptoms that w ould relate to this level, a CT myelogram of the thoracic spine could be obtained to assess for dorsal arachnoid cyst. If there are no c linical symptoms corresponding to this level, this may be an incidental and clinically insignificant finding. 2. Essentially normal lumbar spine MRI w ith no spinal canal or neural foraminal stenosis in the lumbar levels. I have personally reviewed the images an d the above interpretation and agree with the findings. Performing Organization Address City/State/ZIP Code Phon e Number [facility] [place] documented in this encounter Visit Diagnoses Not on filedocumented in this encounter Care Teams Laboratory Engineer Relationship Specialty Start Date End Date Maximus Cabral MD PCP - General 07/26/14 documented as of this encounter
--- OUTSIDE RECORDS SUMMARY | 2021-12-07 00:58 | XMS_ITS | Encounter Summary ---
:1975 Author Organization [facility] Address [address] [place] [address] Care Team Providers Name Role Phone Maximus Cabral MD Primary Care Provider [phone] Reason for Visit Reason Comments Eye Problem f/u corneal abrasion left ey e last exam placed BCL, pt c/o increased pain same stabbing pain on the o uter left side along with a shooting pain in the back of the eye, left ey e very light sensitive and blurry, Right eye VA fiine no problems, Eye Problem vigamox left BID, renewed Vi codin rx Encounter Details Date Type Department Care Team Description 08/02/2014 Office Visit [facility] Keyshawn Fowler MD Ophthalmology - [address], [address], [address] [place], [place] [id number] [place] [address] [phone] [id number] (Wo rk) Social History Tobacco Use [...] Date HYDROcodone-acetaminophen Take 1 Tab by mouth 11 Tab 0 0 08/02/2014 08/03/2014 (NORCO) 5-325 mg tablet every 6 hours as needed for Pain Daily Max: 4 Tabs documented in this encounter Progress Notes Keyshawn Fowler MD - 08/02/2014 1250 EDT Chief Complaint Patient presents with ??? Eye Problem f/u corneal abrasion left eye last exam placed BCL, pt c/o increased pain same stabbing pain on the outer left side along with a shooting pain in the back of the eye, left eye very light sensitive and blurry, Right eye VA fiine no problems, ??? Eye Problem vigamox left BID, renewed Vicodin rx HPI :The patient is a 38 y.o. male Right Eye: NL Left Eye: Blurred Vision, Tearing, Pain/Soreness, Glare or Light Sensitivity Visual Aid: Glasses Current Rx Age Location: Left eye Pain: 8 Quality: Stabbing, Sharp Severity: Severe Duration: Days Timing: Constant Lasts: Continuous Context: f/u corneal abrasion left eye last exam placed BCL, pt c/o increased pain same stabbing pain on the outer left side along with a shooting pain in the back of the eye, left eye very light sensitive and blurry, Right eye VA fiine no problems, Modifying factors: Corneal abrasion left eye Associated Signs & Symptoms: vigamox Attestation: ROS Constitutional: NL ENT/Mouth NL Cardiovascular: NL Respiratory: NL Gastrointestinal: NL Genitourinary: NL Musculoskeletal: NL Integumentary: NL Neurologic: NL Psychiatric: NL Endocrine: NL Hematologic: NL Immunologic: NL Family Resource Specialist: Exposures: None Other: Attestation: Allergies include: Review of patient's allergies indicates no known allergies. Patient Active Problem List Diagnosis ??? Suicidal ideation ??? Depression Outpatient Prescriptions Marked as Taking for the 08/02/14 encounter (Office Visit) with Keyshawn Fowler MD [...] twice daily with lunch and dinner. ??? [DISCONTINUED] HYDROcodone-acetaminophen (NORCO) 5-325 mg tablet [...] - Linear) Right Left Dist cc 20/20 20/50 -2 Tonometry Def due to pain Pupils Dark Light React APD Right 4 3 Slow None Left 3.5 3.0 Slow None Neuro/Psych Oriented x3: Yes Mood/Affect: Normal Slit Lamp and Fundus Exam External Exam Right Left External Normal trace periorb edema and erythema Slit Lamp Exam Right Left Lids/Lashes Normal as above Conjunctiva/Sclera White and quiet trace injection Cornea Clear healing central epi defect, 4 x 3 mm, no infiltrate, no thinning Anterior Chamber Deep and quiet Deep and quiet Iris Round and reactive Round and reactive Lens Clear Clear Vitreous Normal Normal Fundus Exam Right Left Disc Normal Normal C/D Ratio 0.2 ~0.2 Macula Normal Normal Vessels Normal Normal Edited by: Keyshawn Fowler MD IMPRESSION & PLAN: 1. Corneal abrasion, left -- continues to heal, but pain unchanged, moderated with Vicodin -- no sign of infection -- gave homatropine OS x 1 in clinic, replaced BCL (3.8, D 14), cont vigamox OS BID, renewed Vicodin rx -- pt is coordinating his narcotic rx with his AA sponsor [...] Sig Discontinue Reason Start Date End Date ofloxacin (OCUFLOX) 0.3 Place 1 Drop into Dose adjustment 5 08/02/2014 % ophthalmic solution the left eye 4 times daily HYDROcodone-acetaminophe Take 1 Tab by mouth 5 08/02/2014 n (NORCO) 5-325 mg every 6 hours as tablet needed for Pain Daily Max: 4 Tabs documented as of this encounter Historical Medications This list may reflect changes made after this encounter. Medication Sig Dispensed Refills Start Date End Date MOXIFLOXACIN HCL (VIGAMOX Apply to eye 0 08/03/2014 OPHTHALMIC) added in this encounter Eye Exam Visual Acuity (Snellen - Linear) Right eye Left eye Dist cc 20/20 20/50 -2 Tonometry Def due to pain Pupils Dark Light React APD Right eye 4 3 Slow None Left eye 3.5 3.0 Slow None Neuro/Psych Oriented x3: Yes Mood/Affect: Normal External Exam Right eye Left eye External Normal trace periorb edema and erythema Slit Lamp Exam Right eye Left eye Lids/Lashes Normal as above Conjunctiva/Sclera White and quiet trace injection Cornea Clear healing central epi defect, 4 x 3 mm, no infiltrate, no thinn ing Anterior Chamber Deep and quiet Deep and quiet Iris Round and reactive Round and reactive Lens Clear Clear Vitreous Normal Normal Fundus Exam Right eye Left eye Disc Normal Normal C/D Ratio 0.2 ~0.2 Macula Normal Normal Vessels Normal Normal Care Teams Assortment Planner Relationship Specialty Start Date End Date Maximus Cabral MD PCP - General 07/26/14 documented as of this encounter
--- OUTSIDE RECORDS SUMMARY | 2021-12-07 00:58 | XMS_ITS | Encounter Summary ---
:1975 Author Organization [facility] Address [address] [place] [address] Care Team Providers Name Role Phone Maximus Cabral MD Primary Care Provider [phone] Reason for Visit Reason Comments Eye Problem Referred from ED for corneal ulcer left eye. Sporadic CL use pain began Friday with reduced vision. 7/10 pain. Vision very cloudy Encounter Details Date Type Department Care Team Description 07/26/2014 Office Visit [facility] Keyshawn Fowler MD Ophthalmology - [address], [address] [place], [place] [address] [place] [address] [phone] (Wo rk) Social History Tobacco Use [...] Sig Dispensed Refills Start Date End Date ofloxacin (OCUFLOX) 0.3 % Place 1 Drop into 1 Bottle 0 08/02/2014 ophthalmic solution the left eye 4 times daily documented in this encounter Progress Notes Keyshawn Fowler MD - 07/26/2014 1100 EDT Chief Complaint Patient presents with ??? Eye Problem Referred from ED for corneal ulcer left eye. Sporadic CL use pain began Friday with reduced vision.7/10 pain. Vision very cloudy HPI :The patient is a 38 y.o. male Right Eye: NL Left Eye: Blurred Vision, Pain/Soreness Visual Aid: Current Rx Age Location: Left eye Pain: 7 Quality: Sharp Severity: Duration: Days Timing: Constant Lasts: Continuous Context: Pain and blurred vision left eye Modifying factors: CL use Associated Signs & Symptoms: Attestation: ROS Constitutional: NL ENT/Mouth NL Cardiovascular: NL Respiratory: NL Gastrointestinal: NL Genitourinary: NL Musculoskeletal: NL Integumentary: NL Neurologic: NL Psychiatric: NL Endocrine: NL Hematologic: NL Immunologic: Reconnaissance Man: Exposures: None Other: Attestation: Allergies include: Review of patient's allergies indicates no known allergies. Patient Active Problem List Diagnosis ??? Suicidal ideation ??? Depression No outpatient prescriptions have been marked as taking for the 07/26/14 encounter (Office Visit) Keyshawn Montiel MD. Past Medical History Diagnosis Date ??? Psychiatric [...] - Linear) Right Left Dist cc 20/20 20/200 Correction: Glasses Tonometry Defer 2/2 ?K abrasion Pupils Deferred, photophobia Neuro/Psych Oriented x3: Yes Mood/Affect: Normal Slit Lamp and Fundus Exam External Exam Right Left External Normal Normal Slit Lamp Exam Right Left Lids/Lashes Normal Normal Conjunctiva/Sclera White and quiet Trace diffuse inj Cornea Clear Central epi abrasion 5.5mm x 5.5mm, no infiltrate Anterior Chamber Deep and quiet Deep and quiet Iris Round and reactive Round and reactive Lens Clear Clear Vitreous Normal Normal Fundus Exam Right Left Disc Normal Normal C/D Ratio 0.2 ~0.2 Macula Normal Normal Vessels Normal Normal Edited by: Keyshawn Fowler MD IMPRESSION & PLAN: 1. Corneal abrasion, left -- pt in severe pain, placed BCL -- does not appear infected -- given steroid gtt (FML) by OD, STOP steroid -- begin oflox QID OS, ATs QID PRN -- recheck 1 D I have reviewed the past medical, [...] Right eye Left eye Dist cc 20/20 20/200 Correction: Glasses Tonometry Defer 2/2 ?K abrasion Pupils Deferred, photophobia Neuro/Psych Oriented x3: Yes Mood/Affect: Normal External Exam Right eye Left eye External Normal Normal Slit Lamp Exam Right eye Left eye Lids/Lashes Normal Normal Conjunctiva/Sclera White and quiet Trace diffuse inj Cornea Clear Central epi abrasion 5.5mm x 5.5mm, no infiltrate Anterior Chamber Deep and quiet Deep and quiet Iris Round and reactive Round and reactive Lens Clear Clear Vitreous Normal Normal Fundus Exam Right eye Left eye Disc Normal Normal C/D Ratio 0.2 ~0.2 Macula Normal Normal Vessels Normal Normal Care Teams Chain Testing Machine Operator Relationship Specialty Start Date End Date Maximus Cabral MD PCP - General 07/26/14 documented as of this encounter
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
--- OUTSIDE RECORDS SUMMARY | 2021-12-07 00:58 | XMS_ITS | Encounter Summary ---
:1975 Author Organization [facility] Address [address] [place] [address] Care Team Providers Name Role Phone Maximus Cabral MD Primary Care Provider [phone] Encounter Details Date Type Department Care Team Description 09/17/2016 [facility] [id number] [place] [phone] (Wo rk) Social History Tobacco Use Types [...] 1,200 mg by 0 tablet mouth daily. phenazopyridine (PYRIDIUM) Take 1 Tab by mouth 20 Tab 0 09/13/2016 200 mg tablet 3 times daily as needed for Pain. sertraline (ZOLOFT) 50 mg Take 150 mg by 0 tablet mouth daily. documented as of this encounter Discharge Disposition Disposition Code Departure Means Destination Home or Self Care documented in this encounter Plan of Treatment Not on filedocumented as of this encounter Visit Diagnoses Not on filedocumented in this encounter Care Teams Cinder Snapper Relationship Specialty Start Date End Date Maximus Cabral MD PCP - General 07/26/14 documented as of this encounter
--- OUTSIDE RECORDS SUMMARY | 2021-12-07 00:58 | XMS_ITS | Encounter Summary ---
:1975 Author Organization [facility] Address [address] [place] [address] Care Team Providers Name Role Phone Maximus Cabral MD Primary Care Provider [phone] Encounter Details Date Type Department Care Team Description 01/17/2016 Results Only [facility]- [facility] Maximus Cabral, [address] [facility] [address] [place] [address] (Wo rk) Social History Tobacco [...] Procedure Name Priority Date/Time Associated Comments Diagnosis SED RATE Routine 01/17/2016 11:31 Results for this EDT procedure are i n the results section. RHEUMATOID FACTOR Routine 01/17/2016 11:31 Result s for this EDT procedure are i n the results section. C REACTIVE PROTEIN Routine 01/17/2016 11:31 Resul ts for this EDT procedure are i n the results section. ANTI NUCLEAR AB Routine 01/17/2016 11:31 Results for this (THOM), IFA EDT procedure are i n the results section. SPEP, INCLUDES Routine 01/17/2016 11:31 Results f or this QUANTITATION OF EDT procedure ar e in MONOCLONAL SPIKE the results section. LITHIUM Routine 01/17/2016 11:31 Results for this EDT procedure are i n the results section. documented in this encounter Results C REACTIVE PROTEIN (01/17/2016 11:31 EDT) Pathologist Sig nature C Reactive Protein <7.0 <10.0 mg/L [facility] SERVICES Specimen Blood Performing Organization Address City/[facility]/ZIP Code Phon e Number [facility] [address] [place] [address] SERVICES (ABNORMAL) SPEP, INCLUDES QUANTITATION OF MONOCLONAL SPIKE (01/17/2016 11:31 EDT) Total Protein 7.8 6.3 - 8.2 g/dl [facility] Albumin 63.4 55.8 - 66.1 % [facility] Alpha 1 3.2 2.9 - 4.9 % [facility] Alpha 2 10.2 7.1 - 11.8 % [facility] Beta 12.5 8.4 - 13.1 % [facility] Gamma 10.7 (L) 11.1 - 18.8 % [facility] Comments No apparent monoclonal protein [facility] Comment: LABORATORY SERVICES on serum electrophoresis. See Pathology Scanned Report in [facility]. Specimen Blood Performing Organization Address City/[facility]/ZIP [facility] Number [facility] [address] [place] [address] SERVICES SED. RATE:WESTERGR[place] (01/17/2016 11:31 EDT) Sed. Rate 3 0 - 15 mm/hr [facility] [place] Comment: LABORATORY Note: Sample greater than 4 hrs old SERVI MARTI (but less than 12 hrs) when tested. If refrigerated, sample is stable when tested within 12 hours of collection. Specimen Blood Performing Organization Address City/State/ZIP Code Phon e Number [facility] [address] [place] [address] SERVICES RHEUMATOID FACTOR (01/17/2016 11:31 EDT) Pathologist Sig nature Rheumatoid Factor <20 <20 IU/ml [facility] LABO RATORY SERVICES Specimen Blood Performing Organization Address [facility] Phon e [facility] LABORATORY [address] [place] [address] SERVICES ANTI NUCLEAR ANTIBODY (01/17/2016 11:31 EDT) Pathologist Sig nature Anti Nuclear Ab <40 0 - 40 Dils [facility] LABORA TORY SERVICES Specimen Blood Performing Organization Address [facility] Phon e [facility] LABORATORY [address] [place] [address] SERVICES (ABNORMAL) LITHIUM (01/17/2016 11:31 EDT) Pathologist Sig nature [place] 0.5 (L) 0.6 - 1.2 mEq/L [facility] LABORA TORY SERVICES Specimen Blood Performing Organization Address [facility] Phon [facility] LABORATORY [address] [place] [address] SERVICES documented in this encounter Visit Diagnoses Not on filedocumented in this encounter Care Teams Machinist Helper Relationship Specialty Start Date End Date Maximus Cabral MD PCP - General 07/26/14 documented as of this encounter
--- OUTSIDE RECORDS SUMMARY | 2021-12-07 00:58 | XMS_ITS | Encounter Summary ---
:1975 Author Organization [facility] Address [address] [place] [address] Care Team Providers Name Role Phone Maximus Cabral MD Primary Care Provider [phone] Encounter Details Date Type Department Care Team Description 01/17/2016 Hospital Encounter [facility] - Octavio [place] n[place] Marii Cueva MD [address] [address] [address] [place] [id number] (Wo rk) Social History Tobacco Use Types [...] as of this encounter Discharge Diagnoses Diagnosis M54.9 Dorsalgia, unspecified-M54.9[ICD-1 0-CM] Z79.899 Other [facility] (current) drug t herapy-Z79.899[ICD-10-CM] documented in this [...] filedocumented in this encounter Care Teams Laboratory Helper Relationship Specialty Start Date End Date Maximus Cabral MD PCP - General 07/26/14 documented as of this encounter
--- OUTSIDE RECORDS SUMMARY | 2021-12-07 00:59 | XMS_ITS | Encounter Summary ---
:1975 Author Organization [facility] Address [address] [place] [address] Care Team Providers Name Role Phone Unavailable Primary Care Provider Unavailable Encounter Details Date Type Department Care Team Description 12/12/2006 - Hospital Encounter [facility] Emergency, 12/13/2006 Emergency Department - MD [place] [address] [id number] Social History Tobacco Use Types Packs/Day Years Used Date Never Assessed Sex Assigned at Date Recorded Not on file documented as of this encounter Discharge Disposition Disposition Code Departure Means Destination Home or Self Care documented in this encounter Plan of Treatment Not on filedocumented as of this encounter Visit Diagnoses Not on filedocumented in this encounter
--- OUTSIDE RECORDS SUMMARY | 2021-12-07 00:59 | XMS_ITS | Encounter Summary ---
:[address] [facility] Address [address] [place] [address] Care Team Providers Name Role Phone Unavailable Primary Care Provider Unavailable Encounter Details Date Type Department Care Team Description 12/13/2006 Office Visit [facility] - Davin Blanchard Jr., FARMWORKER DAIRY [address] [place] [address] Social History Tobacco Use Types Packs/Day Years Used Date Never Assessed Sex Assigned at Date Recorded Not on file documented as of this encounter Progress Notes Davin Monson Jr., FARMWORKER DAIRY - 05/28/2009 0357 EST [facility] - Physician Summary Registration Date/Time: 12/13/2006 9:47 Time Seen: 11:43. Arrived- By private vehicle. Historian- patient. HISTORY OF PRESENT ILLNESS Chief Complaint: DENTAL PAIN. This started 2 days ago and is still present. Pain described as severe. The patient was seen recently by a health care provider (Seen in ER yesterday,given Vicodin but painis worse). ADDITIONAL NOTES The nursing notes have been reviewed. PHYSICAL EXAM Appearance: Alert. Anxious. Vital Signs: Have been reviewed. ENT: (2 upper left molar extraction with packing ,no drainage or erythema). Neck: No adenopathy. PROGRESS AND PROCEDURES E.D. Course: Patient will return to main ER by private auto,has funeral driver.. ED Attending on duty and available for supervision (Naren Miles MD). CLINICAL IMPRESSION Dental pain. INSTRUCTIONS Follow-up: Return to the emergency department Return to main ER as advised. (Electronically signed by Zabrina Monson P.A.-C 12/13/2006 21:20) Care Center - Nursing Summary Registration Date/Time: 12/13/2006 9:47 TRIAGE Initial Assessment Triage time 11:03. BP: 140 / 80. HR: 80 regular. RR: 16 regular. Temp: 97.7 oral. --1111 Sara Mosqueda R.N.. Medications Clindamycin: 300mg (every 6 hours- lastdose 0600 today). --1111 Sara Mosqueda R.N.. Allergies No known drug allergies. --1111 Sara Mosqueda R.N.. History Chief Complaint: (left sided facial pain). This started yesterday. Pain level now: 01/14. (2 days ago had 2 teeth removed.). No fever. 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 PAST HX: Negative. No infectious disease exposure. (ear surgery (cosmetic) at age 12). Immunizations: up-to-date. SOCIAL HX: Cigarette smoker: less than 1 pack per day. Alcohol use; consumes 12- pack of beer a week.Abuse assessment: The patient was asked Do you feel safe in your home?. No report of abuse. Arrived by private vehicle and accompanied by spouse. Historian: patient. --1111 Sara Mosqueda R.N. Treatment FREIGHT TEAM ASSOCIATE: Recently seen in the ED. (last night- was given Clindamycin then.). --1112 Sara Mosqueda R.N. (Teeth removed at [facility] 12/10/06.). --1113 Sara Mosqueda R.N.. PAST HX. PHYSICAL ASSESSMENT Ambulatory to room. Alert. Appears in pain and anxious. Oriented X 3. Respirations not labored. Skinis warm and dry. --1112 Sara Mosqueda R.N.. NURSING PROGRESS NOTES Pre-procedure time-out completed per protocol: verified identity of patient (name and birthdate); verification done by care team (nurse). . --1112 Sara Mosqueda R.N. Bed placed in lowest position. Brakes of bed on. Patient ready for evaluation- chart flagged. --1113Grosa Mosqueda R.N.. DISPOSITION / DISCHARGE (pt left prior to d/c instuctions). --1152 Vivien Caceres L.P.N.. Locked/Released at 12/13/2006 11:53 by Vivien Caceres L.P.N. documented in this encounter Plan of Treatment Not on filedocumented as of this encounter Visit Diagnoses Not on filedocumented in this encounter
--- OUTSIDE RECORDS SUMMARY | 2021-12-07 00:59 | XMS_ITS | Encounter Summary ---
:1975 Author Organization [facility] Address [address] [place] [address] Care Team Providers Name Role Phone Unavailable Primary Care Provider Unavailable Encounter Details Date Type Department Care Team Description 10/08/2003 Hospital Encounter [facility] Emergency, Emergency Department - [place], Main [address] [id number] Social History Tobacco Use Types Packs/Day Years [...]
--- OUTSIDE RECORDS SUMMARY | 2021-12-07 00:59 | XMS_ITS | Encounter Summary ---
:1975 Author Organization Address [address] [place] [address] Care Team Providers Name Role Phone Unavailable Primary Care Provider Unavailable Encounter Details Date Type Department Care Team Description 12/12/2006 Office Visit [facility] - Lucy Braxton PA conversion [address] [place] [address] Social History Tobacco Use Types Packs/Day Years Used Date Never Assessed Sex Assigned at Date Recorded Not on file documented as of this encounter Progress Notes Lucy Jacinto PA - 05/28/2009 0357 EST Department - Physician Summary Registration Date/Time: 12/12/2006 21:45 Time Seen: 23:32; initial patient contact, initial documentation. Arrived- By private vehicle. Historian- patient. HISTORY OF PRESENT ILLNESS Chief Complaint: DENTAL PAIN. This started 2 days ago, had infected teeth pulled, now increasing pain and is still present and worsening. Pain described as severe. He has had toothache. The patient hashad mild swelling of the left face. No swollen jaw or jaw pain. Patient has not had similar symptoms previously. The patient was seen recently in the office (for dental extraction). REVIEW OF SYSTEMS No fever. PAST HISTORY See nurses notes. Medications: The patient's medications have been reviewed. Allergies: The patient's allergies have been reviewed. ADDITIONAL NOTES The nursing notes have been reviewed. PHYSICAL EXAM Appearance: Alert. Patient in moderate distress. Vital Signs: Have been reviewed. Head: Mild swelling of the left maxilla. Mild erythema left facial area (zygoma). (no induration, fluctuance or pointing in region of extractions(L upper molars x 2)). ENT: Mild, extensive dental decay. Mild trismus present. Pharynx normal. Lips normal. Gums normal. Neck: Normal inspection. Trachea midline. No adenopathy. Thyroid normal. Neck supple. Skin: Normal skin color and turgor. Neuro: Oriented X 3. PROGRESS AND PROCEDURES ED Attending on duty and available for supervision: Claus Salinas. Disposition: Discharged home. Condition: good. Discharged home in unchanged condition. CLINICAL IMPRESSION Dental pain (s/p extraction). INSTRUCTIONS brush and floss daily. Warnings: GENERAL WARNINGS: Return or contact your physician immediately if your condition worsens or changes unexpectedly, if not improving as expected, or if other problems arise. Prescription Medications: Vicodin 5 mg: take 1 to 2 orally every 6 hours as needed for pain. Dispense fifteen (15). No refills. Generic substitute OK. Cleocin 300 mg: take 1 capsule orally every 6 hours for 4 days. No refill. Generic substitute OK. OTC Medications: Take ibuprofen (Advil, Nuprin, etc.) according to label instructions. Available over the counter. Acetaminophen (available over the counter): take according to label instructions. Follow-up: Follow up with Doctor dental clinic Friday. Understanding of the discharge instructions verbalized by patient. (Electronically signed by Brynn Pimentel 12/13/2006 5:05) Department - Nursing Summary Registration Date/Time: 12/12/2006 21:45 TRIAGE Initial Assessment Acuity: LEVEL 5. BP: 150 / 85. HR: 85. RR: 16. Temp: 35.8 tympanic. Alert. No acute distress. --2147 Danii Brown R.N.. Medications None. --2147 Danii Brown R.N.. Allergies No known drug allergies. --2147 Danii Brown R.N.. History Chief Complaint: (c/o worsening dental and L facialpain s/p dental extraction Wed, no edema noted). Pain level now: 12/15. PAST HX: (2 teeth extracted Wed). SOCIAL HX: Smoker. No report of abuse. Arrived by private vehicle and accompanied by family. --2147 Danii Brown R.N.. Interventions To room. --2147 Danii Brown R.N.. NURSING PROGRESS NOTES (to room 31 for eval). --2147 Danii Brown R.N. (Pt. seated in exam chair - chair in low position.). --2156 Edith Lutz R.N. (Pt. waiting for evaluation. Pt. informed of reason for long wait. pt. advised that AISSATOU Jacinto will be seeing him.). --2252 Edith Lutz R.N. (AISSATOU Jacinto in to evaluate pt.). --2327 Edith Lutz R.N. Care transferred and report given. --2331 Edith Lutz R.N. CLINDAMYCIN 300 mg PO. IBUPROFEN 600mg PO. VICODIN 5 mg 1 tab now, Starter pack #[id number] to go PO. Sedative drug warning given to the patient. . --0007 Ada Srivastava R.N.. DISPOSITION / DISCHARGE (dicahrged from the ED on date of visit). --0732 Tomasa Marie R.N.. Britany Sandoval R.N., Lauren R.N. Deb Smith-McMahon, R.N. Locked/Released at 12/13/2006 7:32 by Tomasa Marie R.N. documented in this encounter Plan of Treatment Not on filedocumented as of this encounter Visit Diagnoses Not on filedocumented in this encounter
--- OUTSIDE RECORDS SUMMARY | 2021-12-07 00:59 | XMS_ITS | Encounter Summary ---
:1975 Author Organization [facility] Address [address] [place] [address] Care Team Providers Name Role Phone Unavailable Primary Care Provider Unavailable Encounter Details Date Type Department Care Team Description 12/13/2006 Office Visit [facility] - Delroy Villeda, hector PA [address] [facility] [address] [place] [address] [place] [address] (Wo rk) Social History Tobacco Use Types Packs/Day Years Used Date Never Assessed Sex Assigned at Date Recorded Not on file documented as of this encounter Progress Notes Valentin Delroy - 05/28/2009 0358 EST Department - Physician Summary Registration Date/Time: 12/13/2006 11:54 Arrived- By private vehicle. HISTORY OF PRESENT ILLNESS Chief Complaint: DENTAL PAIN. s/p extraction 3 days ago. This started yesterday and is still present. He has had toothache. Patient has not had similar symptoms previously. The patient was seen recently by a health care provider. REVIEW OF SYSTEMS No fever. PAST HISTORY Medications: The patient's medications have been reviewed. Allergies: The patient's allergies have been reviewed. ADDITIONAL NOTES The nursing notes have been reviewed. PHYSICAL EXAM Appearance: Alert. Patient in moderate distress. Vital Signs: Have been reviewed. ENT: No trismus. (extraction site without signs of infection.). Neck: Trachea midline. PROGRESS AND PROCEDURES PROCEDURES apical n block left uppper molars. E.D. Course: Pt seen and txed by Dental resident. ED Attending on duty and available for supervision: Ann Marie Martins. Disposition: Discharged home. Condition: good. Discharged home in good condition. CLINICAL IMPRESSION Dental pain (dry socket). INSTRUCTIONS Prescription Medications: Percocet 5 mg/325 mg: take 1 tablet orally every 6 hours as needed for pain. Dispense fifteen (15). No refills. Generic substitute OK. Follow-up: Follow up with a dentist. Call for an appointment. (Electronically signed by Delroy Hanson P.A. 12/13/2006 15:12) Department - Nursing Summary Registration Date/Time: 12/13/2006 11:54 TRIAGE Initial Assessment Triage time 11:55. Acuity: LEVEL 3. BP: 135 / 79. HR: 90. RR: 18. Temp: 37.2 tympanic. Alert. --1158 Sharlene Perez R.N.. Medications (Clind and Vicodin). --1158 Sharlene Perez R.N.. Allergies No known drug allergies. --1159 Sharlene Perez R.N.. History Chief Complaint: (seen here yesterday increasing pain now with severe headache pain about left eye). Pain level now: 10/10. Treatment PACKAGE WINDER: Recently seen at this facility; seen for similar symptoms. PAST HX: Negative. (2 teeth removed Wed). Arrived by private vehicle. Historian: patient. --1159 Sharlene Perez R.N.. PHYSICAL ASSESSMENT Alert. Appears in no acute distress. Appears in pain. Oriented X 3. (pt had two teeth extracted lastweek c/o pain to l side of mouth medicated, will monitor). Respirations not labored. Breath sounds within normal limits. Skin intact. Skin is warm and dry. --8569 Vivien Landaverde R.N.. NURSING PROGRESS NOTES Two patient identifiers checked. --1232 Kimmy Thompson R.N. KETOROLAC 30mg IM right gluteus tracy. . --1232 Kimmy Thompson R.N. ATIVAN 2 mg PO. . --1318 Vivien Landaverde R.N.. DISPOSITION / DISCHARGE Patient reports pain level on departure as 2/10. Condition at departure: improved. Fall risk assessment completed. No fall risk identified. No learning barriers present. Discharge instructions reviewedwith the patient. Reviewed warnings. Reviewed medication. Reviewed referrals. Patient verbalized unde rstanding. Written instructions provided in Singaporean. The patient was discharged home and accompaniedby warehouse pricing and inventory clerk. The patient left the Emergency Department ambulatoryand via private vehicle. Spouse driving. Patient has no belongings. Departure time: 14:28. --1428 Vivien Landaverde R.N.. Britany Carr R.N., R.N. Locked/Released at 12/14/2006 6:14 by Tomasa Marie R.N. documented in this encounter Plan of Treatment Not on filedocumented as of this encounter Visit Diagnoses Not on filedocumented in this encounter
--- OUTSIDE RECORDS SUMMARY | 2021-12-07 00:59 | XMS_ITS | Encounter Summary ---
:1975 Author Organization [facility] Address [address] [place] [address] Care Team Providers Name Role Phone None, Provider Primary Care Provider Unavailable Reason for Visit Reason Comments Neck Pain dizzyness, for about two cassandra rs, comes in waves Encounter Details Date Type Department Care Team Description 07/11/2009 Emergency [facility] Abhishek Joseph PA [address] [place] [phone] Headache Emergency Department - Durga Varela MD [address] [place] [phone] [facility] Emanuel Han PA-C [address] [place] [phone] [place] [address] [place] [address] Social History Tobacco Use Types Packs/Day Years Used Date Never Assessed Sex Assigned at Date Recorded Not on file documented as of this encounter Last Filed Vital Signs Vital Sign Reading Time Taken Comments Blood Pressure 118/75 07/11/2009 2159 EDT Pulse 81 07/11/2009 2159 EDT Temperature 35.6 ??C (96.1 ??F) 07/11/2009 1749 EDT Respiratory Rate 14 07/11/20092023 EDT Oxygen Saturation 97% 07/11/2009 2159 EDT Inhaled Oxygen Concentration - - Weight - - Height - - Body Mass Index - - documented in this encounter Discharge Instructions Durga Weston MD - 07/11/2009 Images from the original note were not included. [facility] Patient Instructions 10 follow up with your PCP 2) return if symptoms worsen or new symptoms develop Headache: After Your Visit Your Care Instructions Headaches have many possible causes. Most headaches are not a sign of a more serious problem and will get better on their own. Home treatment may help you feel better faster. If your headaches continue, get worse, or occur along with new symptoms, you may need more testing and treatment. Watch for changes in your pain and other symptoms. These may be signs of a more seriousproblem. Follow-up care is a santana part of your treatment and safety. Be sure to make and go to all appointments, and call your doctor if you are having problems. It???s also a good idea to know your test resultsand keep a list of the medicines you take. How can you care for yourself at home? ?? Do not drive if you have taken a prescription pain medicine. Rest in a quiet, dark room until your headache is gone. Close your eyes and try to relax or go to sleep. Do not watch TV or read. Put a cold, moist cloth or cold pack on the painful area for 10 to 15 minutes at a time. Put a thin cloth between the cold pack and your skin. Use a warm, moist towel or a heating pad set on low to relax tight shoulder and neck muscles. Have someone gently massage your neck and shoulders. Take pain medicines exactly as directed. ?? If the doctor gave you a prescription medicine for pain, take it as prescribed. If you are not taking a prescription pain medicine, ask your doctor if you can take an [id number] medicine. Do not take two or more pain medicines at the same time unless the doctor told you to. Many pain medicines have acetaminophen, which is Tylenol. Too much acetaminophen (Tylenol) can be harmful. ?? Be careful not to take pain medicine more often than the instructions allow, because you may get worse or more frequent headaches when the medicine wears off. Do not ignore new symptoms that occur with a headache, such as a fever, weakness or numbness, visionchanges, or confusion. These may be signs of a more serious problem. To prevent headaches ?? Keep a headache diary so you can figure out what triggers your headaches. Avoiding triggers may help you prevent headaches. Record when each headache began, how long it lasted, and what the pain waslike (throbbing, aching, stabbing, or dull). List anything that might have triggered the headache, such as reading, stress, lack of sleep, smoke, alcohol, certain foods, or medicines. Find healthy ways to deal with stress. Headaches are most common during or right after stressful times. Take time to relax before and after you do something that has caused a headache in the past. Exercise daily to relieve stress. Get enough sleep. Eat regularly and well. Long periods without food can trigger a headache. Treat yourself to a massage. Some people find that regular massages are very helpful in relieving tension. Limit caffeine by not drinking too much coffee, tea, or soda. But do not quit caffeine suddenly, because that can also give you headaches. Try to keep your muscles relaxed by keeping good posture. Check your jaw, face, neck, and shoulder muscles for tension, and try relaxing them. When sitting at a desk, change positions often, and stretch for 30 seconds each hour. Reduce eyestrain from computers by blinking frequently and looking away from the computer screen every so often. Make sure you have proper eyewear and that your monitor is set up properly, about an arm???s length away. Seek help if you have depression or anxiety. Your headaches may be linked to these conditions. Treatment can both prevent headaches and help with symptoms of anxiety or depression. When should you call for help? Call 911 anytime you think you may need emergency care. For example, call if: ?? You have signs of a stroke. These may include: ?? Sudden numbness, paralysis, or weakness in your face, arm, or leg, especially on only one side ofyour body. New problems with walking or balance. Sudden vision changes. Drooling or slurred speech. New problems speaking or understanding simple statements, or feeling confused. A sudden, severe headache that is different from past headaches. Call your doctor now or seek immediate medical care if: ?? You have a fever with a stiff neck or a severe headache. You are sensitive to light or feel very sleepy or confused. You have new nausea and vomiting and you cannot keep down food or liquids. Watch closely for changes in your health, and be sure to contact your doctor if: ?? Your headache does not get better within 1 or 2 days. Your headaches get worse or happen more often. Where can you learn more? Go to www.[employer].net/fahc Enter M271 in the search box to learn more about Headache: After Your Visit. ?? 2005 - 2008 [employer]. Care instructions adapted under license by [facility], [facility] . This care instruction is for use with your licensed healthcare professional. If youhave questions about a medical condition or this instruction, always ask your healthcare professional. [employer] disclaims any warranty or liability for your use of this information. documented in this encounter Medications at Time of Discharge Medication Sig Dispensed Refills Start Date End Date citalopram (CELEXA) 20 Take 60 mg by mouth 0 08/14/2009 mg tablet daily. divalproex (DEPAKOTE) Take 500 mg by mouth 0 08/01/2009 500 mg EC tablet daily. Started last week lorazepam (ATIVAN) 1 mg Take 1 Tab by mouth 10 Tab 0 09/200908/01/2009 tablet every 6 hours as needed for Anxiety. oxycodone-acetaminophen Take 1 Tab by mouth 12 Tab 0 09/200908/01/2009 (PERCOCET) 5-325 mg per every 4 hours as tablet needed for Pain. documented as of this encounter Ordered Prescriptions Prescription Sig Dispensed Refills Start Date End Date lorazepam (ATIVAN) 1 mg Take 1 Tab by mouth 10 Tab 0 09/200908/01/2009 tablet every 6 hours as needed for Anxiety. oxycodone-acetaminophen Take 1 Tab by mouth 12 Tab 0 09/200908/01/2009 (PERCOCET) 5-325 mg per every 4 hours as tablet needed for Pain. documented in this encounter Discharge Disposition Disposition Code Departure Means Destination Home or Self Care documented in this encounter ED Notes Harleen Gonzalez - 07/17/2009 0026 EDT DOS: 07/11/2009 Chief Complaint Patient presents with ??? Neck Pain dizzyness, for about two hours, comes in waves The patient is a 33 y.o. male who presents today with Neck Pain HPI Comments: Pt presents to the ED with sudden onset of severe right sided neck pain and headache. He states he feels dizzy and it is the worst pain he has had in his entire life. He denies fevers, has intermittent times where pain is extremely severe then it will improve slightly. He denies vomitingbut feels nauseated. He is in acute distress. The history is provided by the patient. Neck Pain This is a new problem. The current episode started less than 1 hour ago. The problem occurs constantly. The problem has not changed since onset. The pain is associated with nothing. There has been no fever. The pain is present in the right side. Radiates to: occipital area. The pain is at a severity of 10/10. The pain is severe. The pain is the same all the time. Associated symptoms include headaches. Pertinent negatives include no photophobia, no visual change, no chest pain, no numbness, no paresis, no tingling and no weakness. Review of Systems Constitutional: Negative for fever, activity change and appetite change. HENT: Positive for neck pain. Negative for hearing loss, facial swelling and neck stiffness. Eyes: Negative for photophobia. Respiratory: Negative for cough and shortness of breath. Cardiovascular: Negative for chest pain. Gastrointestinal: Positive for nausea. Negative for vomiting and abdominal pain. Musculoskeletal: Negative for myalgias, joint swelling, arthralgias and gait problem. Skin: Negative for rash, color change and pallor. Neurological: Positive for headaches. Negative for tingling, facial asymmetry, weakness, light-headedness and numbness. Psychiatric/Behavioral: Negative. Past Medical History Diagnosis Date ??? Psychiatric problem depression, ?bipolar History reviewed. No pertinent past surgical history. No Known Allergies History Substance Use Topics ??? Tobacco Use: ??? Alcohol Use: History reviewed. No pertinent family history. BP 118/75 Pulse 81 Temp(Src) 35.6 ??C (96.1 ??F) (Tympanic) Resp 14 SpO2 97% Physical Exam Nursing note and vitals reviewed. Constitutional: He is oriented. He appears well-nourished. He appears distressed. HENT: Head: Atraumatic. Mouth/Throat: Oropharynx is clear and moist. Eyes: Extraocular motions are normal. Pupils are equal, round, and reactive to light. Neck: Normal range of motion. Pulmonary/Chest: Effort normal. No respiratory distress. Musculoskeletal: Normal range of motion. Neurological: He is alert and oriented. No cranial nerve deficit. Coordination normal. GCS eye subscore is 4. GCS verbal subscore is 5. GCS motor subscore is 6. Skin: Skin is warm and dry. No pallor. Psychiatric: He has a normal mood and affect. His behavior is normal. Judgment and thought content normal. Radiology orders: CT HEAD WO CONTRAST CT HEAD WO CONTRAST Final result not shown here.: CT HEAD (Results Pending) Procedures ED Course: Pt with normal CT scan. Is in severe distress. He does not have neuro deficits. It is unclear what the cause to his sudden onset pain is. Dr. Varela also to see pt. Pt signed out to Kirill Han, with improvement to symptoms pending and further eval by Dr. Varela. Discharge Prescriptions New Prescriptions LORAZEPAM (ATIVAN) 1 MG TABLET Take 1 Tab by mouth every 6 hours as needed for Anxiety. OXYCODONE-ACETAMINOPHEN (PERCOCET) 5-325 MG PER TABLET Take 1 Tab by mouth every 4 hours as needed for Pain. MDM Number of Diagnoses and Management Options Headache: Patient Progress Patient progress: improved Encounter Diagnoses Code Name Primary? Qualifier ??? 784.0 Headache PCP: MD CHENEY 07/17/2009 12:26 AM Durga Gale MD - 07/13/2009 1029 EDT DOS: 07/11/2009 Chief Complaint Patient presents with ??? Neck Pain dizzyness, for about two hours, comes in waves The patient is a 33 y.o. male who presents today with Neck Pain The history is provided by the patient and a friend. Headache This is a new problem. The problem occurs constantly. The problem has been rapidly worsening. The headache is associated with nothing. The pain is located in the right unilateral region. The pain quality is described as sharp. The pain is severe. The pain radiates to the face. Associated symptoms include nausea. Pertinent negatives include no fever, no palpitations, no shortness of breath and no vomiting. He has tried nothing for the symptoms. Review of Systems Constitutional: Negative for fever, chills, diaphoresis and fatigue. HENT: Positive for neck pain. Negative for hearing loss, ear pain, sore throat, rhinorrhea, neck stiffness, dental problem, postnasal drip, sinus pressure, tinnitus and ear discharge. Eyes: Negative for pain and visual disturbance. Respiratory: Negative for chest tightness, shortness of breath and wheezing. Cardiovascular: Negative for palpitations. Gastrointestinal: Positive for nausea. Negative for vomiting, abdominal pain and diarrhea. Genitourinary: Negative for dysuria, urgency and frequency. Musculoskeletal: Negative for back pain, arthralgias and gait problem. Skin: Negative for rash. Neurological: Positive for dizziness and headaches. Negative for seizures, facial asymmetry, weakness, light-headedness and numbness. Hematological: Does not bruise/bleed easily. Psychiatric/Behavioral: Positive for agitation. Negative for confusion. The patient is nervous/anxious. All other systems reviewed and are negative. Past Medical History Diagnosis Date ??? Psychiatric problem depression, ?bipolar History reviewed. No pertinent past surgical history. No Known Allergies History Substance Use Topics ??? Tobacco Use: ??? Alcohol Use: Denies cigs History reviewed. No pertinent family history. BP 118/75 Pulse 81 Temp(Src) 35.6 ??C (96.1 ??F) (Tympanic) Resp 14 SpO2 97% Physical Exam Nursing note and vitals reviewed. Constitutional: He is oriented. He appears distressed (Pt writhing on stretcher holding the right side of his face-sometimes slapping his face.). HENT: Head: Normocephalic and atraumatic. Right Ear: External ear normal. Left Ear: External ear normal. Nose: Nose normal. Mouth/Throat: Oropharynx is clear and moist. Non tender temporal artery Able to open and close his mouth without pain or clicking sound Non tender scalp Dentition non tender,no dental caries observed No swelling of face Eyes: Conjunctivae and extraocular motions are normal. Pupils are equal, round, and reactive to light. Right eye exhibits no discharge. Left eye exhibits no discharge. Neck: Neck supple. Cardiovascular: Normal heart sounds and intact distal pulses. Pulmonary/Chest: Effort normal and breath sounds normal. Abdominal: Soft. Bowel sounds are normal. No tenderness. Musculoskeletal: He exhibits no edema and no tenderness. Lymphadenopathy: He has no cervical adenopathy. Neurological: He is alert and oriented. Skin: Skin is warm and dry. No rash noted. Psychiatric: Pt very agitated. Radiology orders: CT HEAD WO CONTRAST CT HEAD WO CONTRAST Final result not shown here.: CT HEAD (Results Pending) Procedures ED Course: Pt presents with severe right sided head,face and neck pain.Has nausea and slight dizziness. Has a non focal neurologic exam. Would occasionally slap the right side of his face-at times was agitated but when spoken to he wouldcalm down and answer questions appropriately. Treated with IV zofran,IV dilaudid, and IV lorazepam. Head CT scan obtained and reviewed with radiologist. Pt treated with another course of IV ativan and IV dialudid. Went to the bathroom. Feeling better. Now requesting to go home. Will dc home. Discharge Prescriptions New Prescriptions LORAZEPAM (ATIVAN) 1 MG TABLET Take 1 Tab by mouth every 6 hours as needed for Anxiety. OXYCODONE-ACETAMINOPHEN (PERCOCET) 5-325 MG PER TABLET Take 1 Tab by mouth every 4 hours as needed for Pain. MDM Number of Diagnoses and Management Options Headache: new, needed workup Amount and/or Complexity of Data Reviewed Tests in the radiology section of CPT??: reviewed Discussion of test results with the performing providers: yes (radiologist) Independent visualization of images, tracings, or specimens: yes (Head CT scan) Risk of Complications, Morbidity, and/or Mortality Presenting problems: high Diagnostic procedures: moderate Management options: moderate General comments: 4 Patient Progress Patient progress: improved Encounter Diagnoses Code Name Primary? Qualifier ??? 784.0 Headache PCP: MD CHENEY 07/13/2009 10:29 AM Edmund Lopez RN - 07/11/20092023 EDT Pt resting comfortably, very sedated. Edmund Lopez RN - 07/11/20094 EDT Pt somewhat calmer but still agitated. To CT via stretcher by radiology staff. Edmund pal RN - 07/11/2009 1839 EDT Pt increasingly agitated, thrashing around on stretcher, rubbing hands rapidly over head and slapping side of head with open hand. PA informed, lorazepam and hydromorphone administered IVP. documented in this encounter Miscellaneous Notes Scanned Note-Null - Inpatient, MD Sharonda - 07/13/2009 06 EDT documented in this encounter Plan of Treatment Not on filedocumented as of this encounter Procedures Procedure Name Priority Date/Time Associated Diagnosis Comme nts CT HEAD WO CONTRAST 07/11/2009 19:00 Resu lts for this EDT procedure are i n the results section. HOLD SST STAT 07/11/2009 18:19 Results for this EDT procedure are i n the results section. HOLD PURPLE TOP STAT 07/11/2009 18:19 Results for this EDT procedure are i n the results section. HOLD GREEN TOP STAT 07/11/2009 18:19 Results f or this EDT procedure are i n the results section. HOLD BLUE TOP STAT 07/11/2009 18:19 Results fo r this EDT procedure are i n the results section. documented in this encounter Results CT HEAD WO CONTRAST (07/11/2009 19:00 EDT) Anatomical Region Laterality Modality Other Specimen Narrative [facility] - 07/12/2009 9:[address] without contrast Clinical indication headache, dizziness. Technique: Multiple contiguous axial sec tions were taken from skull base to vertex without the use of contra st. There are no prior studies. Findings: No intracranial mass, hemorrha ge, or extra-axial fluid collection is seen. No midline shift or focal mass effect is present. Retention cysts are noted in the maxilla ry antra bilaterally. There is mucosal thickening in the ethmoid air cells and right sphenoid sinus. Nasal septal deviation leftward i ncluding osseous spurring is noted incidentally. No air-fluid levels are identified. Impression: No CT evidence of acute intr acranial hemorrhage. Procedure Note 07/12/[address] without contrast Clinical indication headache, dizziness. Technique: Multiple contiguous axial sec tions were taken from skull base to vertex without the use of contra st. There are no prior studies. Findings: No intracranial mass, hemorrha ge, or extra-axial fluid collection is seen. No midline shift or focal mass effect is present. Retention cysts are noted in the maxilla ry antra bilaterally. There is mucosal thickening in the ethmoid air cells and right sphenoid sinus. Nasal septal deviation leftward i ncluding osseous spurring is noted incidentally. No air-fluid levels are identified. Impression: No CT evidence of acute intr acranial hemorrhage. Performing Organization Address [facility]/ZIP Code Phon e Number [facility] HOLD SST (07/11/2009 18:19 EDT) Pathologist Sig nature Hold SST Hold for further [facility] testing. Specimen will be held for 5 days. Specimen Blood specimen (specimen) Performing Organization Address [facility]/ZIP [facility] Phon e Number [facility] [address] [place] [address] SERVICES [facility] [address] [place] [address] HOLD PURPLE TOP (07/11/2009 18:19 EDT) Hold Purple Top EDTA for hematology will be discarded after 48 hours, differential not available after 12 [facility] hours. Specimen Blood specimen (specimen) Performing Organization Address [facility]/ZIP [facility] Phon e Number [facility] [address] [place] [address] SERVICES [facility] [address] [place] [address] HOLD GREEN TOP (07/11/2009 18:19 EDT) Pathologist Sig nature Hold Green Top Hold for further [facility] testing. Specimen will be held for 5 days. Specimen Blood specimen (specimen) Performing Organization Address [facility]/ZIP Code Phon e Number [facility] [address] [place] [address] SERVICES [facility] [address] [place] [address] HOLD BLUE TOP (07/11/2009 18:19 EDT) Pathologist Sig nature Hold Blue Top Sample for [facility] coagulation will be discarded after 4 hours Specimen Blood specimen (specimen) Performing Organization Address City/State/ZIP Code Phon e Number [facility] [address] [place] [address] SERVICES [facility] [address] [place] [address] documented in this encounter Visit Diagnoses Diagnosis Headache(784.0) Headache documented in this encounter Administered Medications Inactive Administered Medications - up to 3 most recent administrations Medication Order MAR Action Action Date Dose Rate Site HYDROmorphone (PF) (DILAUDID) 1 mg/mL Given 07/11/2009 18:23 EDT 1 mg injection 1 mg 1 mg, intravenous, NOW X1, 1 dose, On Fri07/11/09 at 1830, STAT HYDROmorphone (PF) (DILAUDID) 1 mg/mL injection 1 Given 07/11/2009 18:40 EDT 1 mg mg 1 mg, intravenous, NOW X1, 1 dose, On Fri07/11/09 at 1900, STAT HYDROmorphone (PF) (DILAUDID) 1 mg/mL injection 1 Given 07/11/2009 19:45 EDT 1 mg mg 1 mg, intravenous, NOW X1, 1 dose, On Fri07/11/09 at 2000, STAT HYDROmorphone (PF) (DILAUDID) 1 mg/mL in jection 1 dose, Starting on Fri07/11/09 at 1837, Until Fri at 1840 lorazepam (ATIVAN) 2 mg/mL injection 1 dose, Starting on Fri07/11/09 at 1838, Until Fri at 1840 lorazepam (ATIVAN) injection 1 mg Given 07/11/2009 18:40 EDT 1 mg 1 mg, intravenous, NOW X1, 1 dose, On Fri07/11/09 at 1900, STAT lorazepam (ATIVAN) injection 1 mg Given 07/11/2009 19:45 EDT 1 mg 1 mg, intravenous, NOW X1, 1 dose, On Fri07/11/09 at 2000, STAT ondansetron (PF) (ZOFRAN) 4 mg/2 mL injection 4 Given 2009 18:23 EDT 4 mg mg 4 mg, intravenous, NOW X1, 1 dose, On Fri07/11/09 at 1830, STAT Oxycodone w APAP?? 5- 325 mg Tab STARTER Given 07/11/2009 22:10 EDT 1 Package PACK 1 Package, oral, NOW X1, 1 dose, On Fri07/11/09 at 2215, STAT sodium chloride 0.9 % 1,000 mL BOLUS Given 07/11/2009 18:23 EDT 1,000 mL 1,000 mL, intravenous, Once (NO Time Specified), 1 dose, Starting on Fri07/11/09 at 1815, Until Fri07/11/09 at 1823, STAT documented in this encounter Historical Medications This list may reflect changes made after this encounter. Medication Sig Dispensed Refills Start Date End Date citalopram (CELEXA) 20 Take 60 mg by mouth 0 08/14/2009 mg tablet daily. divalproex (DEPAKOTE) Take 500 mg by mouth 0 08/01/2009 500 mg EC tablet daily. Started last week added in this encounter Active and Recently Administered Medications Times are shown in EDT. Scheduled Medication Order 07/09/2009 07/10/2009 07/11/2009 HYDROmorphone (PF) (DILAUDID) 1 mg/mL injection 1 mg (COMPLETED) 1822 (Given - Provider: Edmund Chacon RN) 1 mg, Intravenous, NOW X1, 1 dose, 07/11/09 at 1830 HYDROmorphone (PF) (DILAUDID) 1 mg/mL injection 1 mg (COMPLETED) 1839 (Given - Provider: Edmund Chacon, KATELYN) 1 mg, Intravenous, NOW X1, 1 dose, 07/11/09 at 1900 HYDROmorphone (PF) (DILAUDID) 1 mg/mL injection 1 mg (COMPLETED) 1944 (Given - Provider: Trenton Hughes, KATELYN) 1 mg, Intravenous, NOW X1, 1 dose, Tue 10 at 2000 lorazepam (ATIVAN) injection 1 mg (COMPLETED) 1839 (Given - Provider: Emdund Chacon RN) 1 mg, Intravenous, NOW X1, 1 dose, Tue 10 at 1900 lorazepam (ATIVAN) injection 1 mg (COMPLETED) 1944 (Given - Provider: Trenton Hughes, KATELYN) 1 mg, Intravenous, NOW X1, 1 dose, 07/11/09 at 1999 ondansetron (PF) (ZOFRAN) 4 mg/2 mL injection 4 mg (COMPLETED) 1822 (Given - Provider: Edmund Chacon, RN) 4 mg, Intravenous, NOW X1, 1 dose, 07/11/09 at 1830 Oxycodone w APAP?? 5- 325 mg Tab STARTER PACK (COMPLETED) 2209 (Given - Provider: Edmund Chacon, RN) 1 Package, Oral, NOW X1, 1 dose, e 07/11/09 at 2215 sodium chloride 0.9 % 1,000 mL BOLUS (COMPLETED) 1822 (Given - Provider: Edmund Chacon, RN) 1,000 mL, Intravenous, ONCE, 1 dose, First dose on e 07/11/09 at 1815 documented in this encounter Orders Medications Ordered That Might Not Have Count Last Ord ered Date First Ordered Date Been Administered lorazepam (ATIVAN) tablet 1 mg 1 07/11/2009 Nursing Count Last Ordered Date First Ordered Date INSERT SALINE LOCK 1 07/11/2009 documented in this encounter Care Teams Memorial Counselor Relationship Specialty Start Date End Date None, Provider PCP - General 07/11/09 07/25/14 documented as of this encounter
--- OUTSIDE RECORDS SUMMARY | 2021-12-07 00:59 | XMS_ITS | Encounter Summary ---
:1975 Author Organization [facility] Address [address] [place] [address] Care Team Providers Name Role Phone None, Provider Primary Care Provider Unavailable Reason for Visit Reason Comments [facility] Clear[facility] Pt here for [facility] clearance, for ETOH, Klonopin, nyquil and percocet. Pt reports relationship prob lems with spouse, reports being suicidal in the past. Encounter Details Date Type Department Care Team Description 08/01/2009 Emergency [facility] Magnus Springer [facility] [address] [place] [address] Opioid dependence ([facility] Emergency Department - Emergency, MD Rinku Pollard [address] [address] Social History Tobacco Use Types Packs/Day Years Used Date Current Every Day Smoker 0.5 Sex Assigned at Date Recorded Not on file documented as of this encounter Last Filed Vital Signs Vital Sign Reading Time Taken Comments Blood Pressure 103/69 08/01/2009 1723 EDT Pulse 92 08/01/2009 1723 EDT Temperature 36 ??C (96.8 ??F) 08/01/2009 1723 EDT Respiratory Rate 16 08/01/2009 1723 EDT Oxygen Saturation 97% 08/01/2009 1723 EDT Inhaled Oxygen Concentration - - Weight - - Height - - Body Mass Index - - documented in this encounter Discharge Instructions Magnus Sullivan - 08/01/2009 Opiate Withdrawal 1. Follow-up directly with [facility]. 2. Feeling anxiety is a normal part of withdrawal from these substances. However, if you are having thoughts of hurting or killing yourself or hurting someone else, you should return to the ED for further evaluation. AttachmentsThe following attachments cannot be sent through Care Everywhere. ALCOHOL AND DRUG PROBLEMS: AFTER YOUR VISIT ([place])documented in this encounter Medications at Time of Discharge Medication Sig Dispensed Refills Start Date End Date citalopram (CELEXA) 20 mg Take 60 mg by 0 08/14/2009 tablet mouth daily. diphenhydramine (SOMINEX) Take 1 Tab by 10 Tab 0 010 08/14/2009 25 mg tablet mouth at bedtime as needed for Sleep. lorazepam (ATIVAN) 1 mg Take 1 Tab by 20 Tab 0 201 0 08/14/2009 tablet mouth every 6 hours. documented as of this encounter Ordered Prescriptions Prescription Sig Dispensed Refills Start Date End Date diphenhydramine (SOMINEX) Take 1 Tab by 10 Tab 0 2 010 08/14/2009 25 mg tablet mouth at bedtime as needed for Sleep. lorazepam (ATIVAN) 1 mg Take 1 Tab by 20 Tab 0 0 08/14/2009 tablet mouth every 6 hours. documented in this encounter Discharge Disposition Disposition Code Departure Means Destination Home or Self Care Car Other documented in this encounter ED Notes Arun Ritchie RN - 08/01/2009 1819 EDT [facility] called to confirm they are expecting patient. [facility] requested patient's parent's to drive patient to [facility]. Nurse gave parent's paperwork and medicine in a sealed envelope with instruction that it be given to [facility] staff. Patient DC'd with parents. Magnus Yeh - 08/01/2009 1811 EDT DOS: 08/01/2009 Chief Complaint Patient presents with ??? [facility] Clearance Pt here for [facility] clearance, for ETOH, Klonopin, nyquil and percocet. Pt reports relationship problems with spouse, reports being suicidal in the past. The patient is a 33 y.o. male who presents today with [facility] Clear[facility] HPI Comments: Pt is a 33 yo male with hx of substance abuse and alcohol abuse. Pt is reporting relationship problems, such as his wanting to leave him and taking away children. Pt wishes everything would just go away. The history is provided by the patient. [facility] Clearance Primary symptoms include no confusion. This is a chronic problem. Suspected agents include alcohol, opiates and prescription drugs. Pertinent negatives include no fever. Associated medical issues include addiction treatment, withdrawal syndrome and psychiatric illness. Review of Systems Constitutional: Negative for fever and chills. HENT: Negative for neck stiffness. Eyes: Negative for visual disturbance. Respiratory: Negative for shortness of breath. Cardiovascular: Negative for chest pain. Gastrointestinal: Negative for abdominal pain. Genitourinary: Negative for dysuria. Musculoskeletal: Negative for back pain. Skin: Negative for rash. Neurological: Negative for headaches. Psychiatric/Behavioral: Positive for suicidal ideas. Negative for confusion. All other systems reviewed and are negative. Past Medical History Diagnosis Date ??? Psychiatric problem depression, ?bipolar History reviewed. No pertinent past surgical history. No Known Allergies History Substance Use Topics ??? Tobacco Use: Yes -- 0.5 packs/day ??? Alcohol Use: not currently History reviewed. No pertinent family history. BP 103/69 Pulse 92 Temp(Src) 36 ??C (96.8 ??F) (Tympanic) Resp 16 SpO2 97% Physical Exam Nursing note and vitals reviewed. Constitutional: He is oriented. He appears well-developed and well-nourished. He appears not diaphoretic. He appears distressed. HENT: Head: Normocephalic and atraumatic. Nose: Nose normal. Eyes: Extraocular motions are normal. Right eye exhibits no discharge. Left eye exhibits no discharge. Neck: Normal range of motion. No tracheal deviation present. Cardiovascular: Normal rate, regular rhythm and normal heart sounds. Pulmonary/Chest: Effort normal and breath sounds normal. No respiratory distress. Abdominal: Soft. No tenderness. Musculoskeletal: Normal range of motion. Neurological: He is alert and oriented. He has normal strength. He is not disoriented. No sensory deficit. Skin: Skin is warm and dry. No rash noted. He is not diaphoretic. Psychiatric: His speech is normal and behavior is normal. Judgment normal. His affect is blunt. Cognition and memory are normal. He exhibits a depressed mood. He expresses suicidal ideation. Radiology orders: None Procedures ED Course: Spoke to Cale from Crisis regarding patient's suicidal ideation. As per crisis, patient was evaluated prior to arrival and determined patient was depressed. Pt continues to report suicidal ideation butcrisis refuses to see patient in ED as was already evaluated at outside facility. Pt given medications for opioid detoxification and sent to [facility]. Discharge Prescriptions New Prescriptions DIPHENHYDRAMINE (SOMINEX) 25 MG TABLET Take 1 Tab by mouth at bedtime as needed for Sleep. LORAZEPAM (ATIVAN) 1 MG TABLET Take 1 Tab by mouth every 6 hours. MDM Number of Diagnoses and Management Options Depression: Opioid dependence: General comments: 3 Encounter Diagnoses Code Name Primary? Qualifier ??? 304.00A Opioid dependence ??? 311L Depression PCP: MD CHENEY 08/01/2009 6:11 PM Arun house RN - 08/01/2009 1752 EDT Patient sitting in room, calm and cooperative. Wilder alvarado - 08/01/2009 1721 EDT TCALL: JESUSITA KHAN [birth year] [facility] REFERS PT TO ED FOR EVAL. CC: DETOX: KLONOPIN, NYQUIL, PERCOCET(GMD) documented in this encounter Miscellaneous Notes Scanned Note-Null - Inpatient, PhysicianMD - 08/03/2009 1351 EDT documented in this encounter Plan of Treatment Not on filedocumented as of this encounter Visit Diagnoses Diagnosis Opioid dependence (HCC) Opioid type dependence, unspecified Depression Depressive disorder, not elsewhere class ified documented in this encounter Administered Medications Inactive Administered Medications - up to 3 most recent administrations Medication Order MAR Action Action Date Dose Rate Site clonidine (CATAPRES) 0.2 mg/24 hr Given 08/01/2009 18:15 EDT 1 P atch Other patch 1 Patch 1 Patch, transdermal, NOW X1, 1 dose, On Fri08/01/09 at 1815, STAT Lorazepam 1 mg Tab??STARTER PACK Given 08/01/2009 18:15 EDT 1 Package 1 Package, oral, NOW X1, 1 dose, On Fri08/01/09 at 1815, STAT documented in this encounter Discontinued Medications Medication Sig Discontinue Reason Start Date End Date divalproex (DEPAKOTE) Take 500 mg by mouth 08/01/2009 500 mg EC tablet daily. Started last week lorazepam (ATIVAN) 1 mg Take 1 Tab by mouth 07/11/2009 08/01/2009 tablet every 6 hours as needed for Anxiety. oxycodone-acetaminophen Take 1 Tab by mouth 07/11/2009 08/01/2009 (PERCOCET) 5-325 mg per every 4 hours as tablet needed for Pain. documented as of this encounter Active and Recently Administered Medications Times are shown in EDT. Scheduled Medication Order 07/30/2009 07/31/2009 08/01/2009 clonidine (CATAPRES) 0.2 mg/24 hr patch 1 Patch (COMPLETED) 1814 (Given - Provider: Arun Ritchie, RN - Comment: Left Upper Abd) 1 Patch, Transdermal, NOW X1, 1 dose, Fri08/01/09 at 1815 Lorazepam 1 mg Tab??STARTER PACK (COMPLETED) 1814 (Given - Provider: Arun Ritchie, RN) 1 Package, oral, NOW X1, 1 dose, On Fri08/01/09 at 1815, STAT documented in this encounter Care Teams Chest Painting And Sealing Supervisor Relationship Specialty Start Date End Date None, Provider PCP - General 07/11/09 07/25/14 documented as of this encounter
--- NOTE | 2021-12-07 08:15 | DI.CT_ITS ---
Exam(s) CT ABDOMEN PELVIS W EXAM: CT ABDOMEN PELVIS W CLINICAL HISTORY: Diarrhea for 3 months, pain RLQ, ABD PAIN, R19.7, R10.9 TECHNIQUE: COMPARISON: No exams were available for comparison FINDINGS: CT examination of the abdomen and pelvis was performed with bolus infusion of 100 cc of Omnipaque 350 . Images obtained through the lung bases are unremarkable. The liver appears normal with no evidence of a focal mass. Spleen is unremarkable in appearance.. Gallbladder and bile ducts are unremarkable. Pancreas is unremarkable in appearance. Adrenals appear normal bilaterally. Kidneys appear normal with no evidence of renal mass, hydronephrosis, or nephrolithiasis. Unremarkab le bladder. There is no evidence of abdominal or pelvic adenopathy. Abdominal aorta is of normal diameter and no abnormality is seen involving major visceral branches.. Appendix is normal. No evidence diverticulitis or bowel obstruction. No significant abdominal wall hernia seen. Impression: Negative CT examination of the abdomen and pelvis. RADIATION DOSE DELIVERED: 1,604.1mGy.cm Total DLP 1,604.1mGy.cm Total DLP !Error CTDIvol DATA REPOSITORY: All CT scans at this facility are submitted to the National Radiology Data Registry (NRDR) Dose Index Registry (DIR) with the [employer] (ACR). RADIATION OPTIMIZATION: All CT scans at this facility use at least one of these dose optimization te chniques: automated exposure control; mA and/or kV adjustment per patient size (includes targeted exa ms where dose is matched to clinical indication); or iterative reconstruction.
[2021-12-07] MEDS: Omnipaque 350 MG/ML 100 ML BTL IV (15:20)
[2021-12-07] MEDS: Barium Sulfate 2% W/V-Berry Smoothie 450 ML BTL PO (15:21)
== END ==
PROVIDERS: PCP Family Medicine; Visit Provider Nurse Practitioner Family
DX: R10.31 Right lower quadrant pain (principal); R19.7 Diarrhea, unspecified
CPT/HCPCS: 74177; J3490

== ENCOUNTER 2022-02-07 10:47 | Outpatient (REF) | payer SELFPAY ==
[2022-02-07 12:47] LABS: ALT 56 U/L (16-63); AST 29 U/L (15-37); Albumin 4.2 g/dL (3.4-5.0); Alkaline Phosphatase 81 U/L (46-116); Anion Gap 6.9 mmol/L (3-11); BUN 8 mg/dL (7-18); Bilirubin, Total 0.3 mg/dL (0.2-1.0); CO2 28.1 mmol/L (21.0-32.0); CREATININE 0.9 mg/dL (0.70-1.30); Calcium 9.5 mg/dL (8.5-10.1); Chloride 107 mmol/L (98-107); Estimated GFR 108.01 (mL/min/1.73m2); Glucose 89 mg/dL (74-106); Lipase 65 U/L (73-393); Potassium 3.7 mmol/L (3.5-5.1); Sodium 142 mmol/L (136-145); Total Protein 7.8 g/dL (6.4-8.2)
[2022-02-07 12:56] LABS: Abs Immature Grans 0.04 10^3/uL (0.0-0.06); Absolute Basophil Count 0.03 10^3/uL (0.0-0.2); Absolute Lymphocyte Count 1.61 10^3/uL (1.2-3.4); Absolute Monocyte Count 0.51 10^3/uL (0.1-0.8); Absolute Neutrophil Count 3.92 10^3/uL (1.2-6.7); Basophils % 0.5; Eosinophils % 1.6; HCT 42.1 % (40.0-50.0); HGB 14.2 g/dL (13.5-17.5); Immature Grans % 0.6; Lymphocytes % 25.9; MCH 30.6 pg (27.0-33.0); MCHC 33.7 % (32.0-36.0); MCV 91 fL (80-95); MPV 11.1 fL (8.0-11.0); Monocytes % 8.2; Neutrophils % 63.2; Platelet Count 204 10^3/uL (130-400); RBC 4.64 10^6/uL (4.36-5.78); RDW 13.2 % (11.8-14.1); RDW-SD 43.8 fL; WBC 6.21 10^3/uL (4.4-10.8)
== END 2022-02-07 10:48 | disposition home or self-care (01) ==
LOC: LBN 10:47
PROVIDERS: PCP Family Medicine; Visit Provider Nurse Practitioner Family
DX: R10.9 Unspecified abdominal pain (principal); R19.7 Diarrhea, unspecified
CPT/HCPCS: 80053; 83690; 85025

== ENCOUNTER 2022-02-25 10:30 | Day surgery (SDC) | payer SELFPAY ==
--- NOTE | 2022-02-24 18:27 | W.PM.DSUDISC ---
Date of service: 02/25/22 Time of Service: 13:23 Discharge Plan Disposition Patient Disposition: HOME Condition: Good Discharge Details Reason For Visit: EGD and colonoscopy Attending Provider: Henrik Mohan Primary Care Provider: Maximus Cabral Home Meds and New Rx's Prescriptions: Continued quetiapine [Seroquel] 400 mg tablet 800 mg PO DAILY PRN lithium carbonate 600 mg capsule 1,200 mg PO QHS clonazepam [Klonopin] 1 mg tablet 2 mg PO QHS venlafaxine 100 mg tablet 150 mg PO DAILY diphenoxylate-atropine [Lomotil] 2.5-0.025 mg tablet 1 tab PO QID PRN (Reason: diarrhea) Qty: 30 3RF pantoprazole [Protonix] 40 mg tablet,delayed release (DR/EC) 40 mg PO DAILY Qty: 30 0RF Discontinued polyethylene glycol 3350 17 gram/dose powder 238 g PO ONCE Qty: 238 0RF Rx Instructions: take per colonoscopy instructions bisacodyl [Dulcolax (bisacodyl)] 5 mg tablet,delayed release (DR/EC) 5 mg PO ONCE Qty: 4 0RF Rx Instructions: take per colonoscopy instructions No Action dicyclomine 20 mg tablet 1 tab PO QID Label Comments: TAKE ONE TABLET BY MOUTH FOUR TIMES A DAY NEEDED FOR PAIN Discharge Instructions Additional Instructions: 1. If tolerated, consume a soft, low fiber diet for 1-2 days. [address] Do not drive, drink alcohol, operate machinery, make critical decisions, or do activities that require coordination or balance for 24 hours. 3. Because air was put into your colon during the procedure, expelling air from your rectum (passing gas or farting) is normal. 4. You may not have a bowel movement for 1-3 days because of the colonoscopy prep. This is normal. 5. You may experience a sore throat for 24 to 48 hours. You may use throat lozenges or gargle with warm salt water to relieve the discomfort. 6. Because air was put into your stomach during the procedure, you may experience some belching. 7. Go directly to the emergency room if you notice any of the following: Develop chills (warm to touch), or if you have a thermometer and your temperature is above 101 Difficulty breathing or difficultly swallowing Persistent vomiting Severe abdominal pain, other than gas cramps Severe chest pain Black, tarry stools Any bleeding ? exceeding one tablespoon 8. Call your physician if the site where your intravenous was started becomes red, swollen, painful, and warm to touch. 9. Your physician has reviewed your pre-procedure medications. Please continue to take those medications as previously ordered. You will be given specific information/education regarding any changes to your medications before leaving. Referrals: Rosey Gaspar DO [OSTEOPATHIC DOCTOR] - (1-2 weeks for path results) Activity:: Activity as Tolerated Activity:: Activity as Tolerated DS: Diagnosis Discharge Diagnosis (1) Abdominal pain: Status: Acute Asessment and Plan: There was no obvious source of your abdominal pain and diarrhea seen on your upper GI, or your colonoscopy. I took multiple biopsies of the stomach and large intestine. Our office will be in touch with the results of those biopsies become available.
--- NOTE | 2022-02-24 18:29 | W.COLOREPORT ---
Date of service: 02/25/22 Time of Service: 13:25 Colonoscopy Report Date of procedure: 02/25/22 Pre-op diagnosis general: Diarrhea Post-op diagnosis procedure note: same Procedure: Diagnostic EGD and colonoscopy Surgeon: Henrik Mohan Anesthesia Type: General:No Airway Estimated blood loss (mL): 30 Pathology: other (Multiple biopsies of duodenum, stomach, and large intestine) Complications: None Disposition: same day Indications: Delroy is a 46-year-old male with chronic gastroesophageal reflux disease, as well as worsening abdominal pain with more frequent diarrhea. Prep: Miralax/Dulcolax Procedure Start Time: 12:06 Procedure End Time: 12:44 Retraction Time: 24 Findings: Normal-appearing esophagus, GE junction, stomach, pylorus, and duodenum. Normal-appearing large intestine Procedure Description: After the initiation of monitored anesthetic care, and with the assistance of a bite block, I advanced a standard gastroscope through the mouth past the hypopharynx and into the esophagus.? Under the direct vision of the scope, I advanced down the esophagus into the stomach.? Once I entered the stomach, I performed a brief inspection, followed by retroflexion towards the gastric cardia.? This appeared normal.? After that, I gently advanced the scope around the incisura angularis and examined the pylorus.? This also appeared normal.? Next, I advanced the scope through the pylorus into the duodenum.? The mucosa was pink and healthy appearing.? I took random biopsies of the second portion of the duodenum, as well as the duodenal bulb. I was able to visualize bile draining into the duodenum through the ampulla Vater. ?Next, I began retracting the endoscope.? I returned to the stomach which was carefully examined once again.? I performed random biopsies of the gastric antrum, and the greater curvature along the gastric body. I then gently desufflated some of the stomach, and withdrew the endoscope into the distal esophagus. The GE junction and Z-line were normal-appearing at 34 cm. ?Finally, I withdrew the scope along the length of the esophagus taking great care to examine the entirety of the mucosa.? I did not appreciate any abnormalities. Next, we moved Delroy into the left lateral decubitus position. I began by performing an external anorectal exam.? Perineum and skin were normal, as was the anal verge.? There was no evidence of external hemorrhoids.? Next, I performed a digital rectal exam.? I did not appreciate any abnormal findings.? Next, I advanced a colonoscope into the rectal vault.? I performed retroflexion.? I did not see signs of pathologic internal hemorrhoids.? Using insufflation, I then advanced the colonoscope beyond the rectal folds and into the sigmoid colon before advancing towards the cecum.? The quality of the prep was adequate.? The scope was noted to be in the cecum by identification of the ileocecal valve and appendiceal orifice.? I then began withdrawing the colonoscope using repeated irrigation as necessary for full evaluation of the colonic mucosa. I perform random biopsies of the cecum, ascending, transverse, descending and sigmoid colons. Once the scope was withdrawn to the level of the rectum, great care was taken to examine portions of the rectal folds. Around 17 cm from the anal verge I identified a 0.5 cm polyp. ?It appeared sessile in character. ?I was able to remove this with a cold forceps. I took other random biopsies of the rectum. There was minimal bleeding from the biopsy sites. Finally, the scope was withdrawn and the patient was brought to the same-day surgery recovery unit as the anesthetic wore off. ?The findings and instructions were shared with the patient prior to discharge.
[2022-02-25 10:45] VITALS: BP 116/93; PULSE 92; RESP 18; TEMP 36.2; O2SAT 99
[2022-02-25] MEDS: Lactated Ringers 1,000 ML 80 ML IV (11:26)
--- NOTE | 2022-02-25 11:35 | ANES.PREOP_ITS ---
General Info Date of Service Date Performed: 02/25/22 Height: 5 ft 10.08 in Weight: 114.1 kg Body Mass Index (BMI): 36.0 Surgical Procedure: Operation Date: 02/25/22 12:05 Proposed Procedure Side Surgeon p Colonoscopy/Gastroscopy w/Biopsies Henrik Mohan MD Meds Allergies and Home Medications Allergies Allergy/AdvReac Type Severity Reaction Status Date / Time No Known Allergies Allergy Verified 02/25/22 10:55 Home Medication Medication Instructions Recorded clonazepam 1 mg tablet (Klonopin) 2 mg PO QHS 11/27/21 lithium carbonate 600 mg capsule 1,200 mg PO QHS 11/27/21 quetiapine 400 mg tablet (Seroquel) 800 mg PO DAILY PRN 11/27/21 venlafaxine 100 mg tablet 150 mg PO DAILY 11/27/21 diphenoxylate-atropine 2.5 1 tab PO QID PRN diarrhea #30 tabs 02/19/22 mg-0.025 mg tablet (Lomotil) pantoprazole 40 mg tablet,delayed 40 mg PO DAILY #30 tabs 02/19/22 release (Protonix) dicyclomine 20 mg tablet 1 tab PO QID 02/25/22 Current Visit Medications: Current Medications Generic Name Dose Route Start Last Admin Trade Name Freq PRN Reason Stop Dose Admin Hyoscyamine Sulfate 0.125 mg 02/24/22 18:30 Hyoscyamine 0.125 Mg Sl/Oral/Chew SL DIRECTED PRN Ringer's Solution 1,000 mls @ 80 mls/hr 02/25/22 06:00 02/25/22 11:26 IV 03/06/22 23:59 80 mls/hr INFUSION ARNULFO Administration IV Miscellaneous Supplies 1 each 02/25/22 06:00 Iv Access IV 03/06/22 23:59 DIRECTED ARNULFO Ondansetron HCl 4 mg 02/24/22 18:30 Ondansetron 4 Mg/2 Ml Vial IVP Q4H PRN PRN Nausea / Vomiting Sodium Chloride 0 ml 02/25/22 06:00 Normal Saline Flush 10 Ml Syr IV 03/06/22 23:59 PRN PRN Sodium Chloride 0 ml 02/25/22 06:00 Normal Saline 10 Ml Vial IJ 03/06/22 23:59 DIRECTED PRN Sterile Water 0 ml 02/25/22 06:00 Water,Injection,Sterile 10 Ml Vial IJ 03/06/22 23:59 DIRECTED PRN PFSH Active Problems Active Problems: Problem Status Onset Code Diarrhea R19.7 Abdominal pain R10.9 Chronic GERD K21.9 Postprandial RUQ pain R10.11 Schizo-affective type schizophrenia, chronic state F25.9 Family history of ulcerative colitis Z83.79 Dysphagia R13.10 Bloody diarrhea R19.7 Incontinence of feces with fecal urgency R15.9, R15.2 Fatty food intolerance K90.49 Medical History Medical History Comments:: patient report stabbing stomach pains which his PCP prescribed hydrocodone and and bentyl for. Patient reports daily diarrhea and terrible abd pain. Surgical History Surgical History History of ear surgery ears pinned back. Tobacco Smoking/Tobacco Use Status: Current every day Tobacco Type: e-cigarettes Alcohol Alcohol Intake: former Substance Use Substance use: Never Substance use type: does not use Vital Signs and Lab Results Vital Signs Most Recent Vital Signs in EMR: Most Recent Vital Signs Temp Pulse Resp BP Pulse Ox 36.2 C L 92 H 18 116/93 H 99 02/25/22 10:45 02/25/22 10:45 02/25/22 10:45 02/25/22 10:45 02/25/22 10:45 Lab Results Blood Type / Crossmatch: No Data to Display Complete Blood Count: White Blood Count 6.21 10^3/uL (4.4-10.8) 02/07/22 10:20 Red Blood Count 4.64 10^6/uL (4.36-5.78) 02/07/22 10:20 Hemoglobin 14.2 g/dL (13.5-17.5) 02/07/22 10:20 Hematocrit 42.1 % (40.0-50.0) 02/07/22 10:20 Platelet Count 204 10^3/uL (130-400) 02/07/22 10:20 Complete Metabolic Panel: Sodium 142 mmol/L (136-145) 02/07/22 10:20 Potassium 3.7 mmol/L (3.5-5.1) 02/07/22 10:20 Chloride 107 mmol/L (98-107) 02/07/22 10:20 Carbon Dioxide 28.1 mmol/L (21.0-32.0) 02/07/22 10:20 BUN 8 mg/dL (7-18) 02/07/22 10:20 Creatinine 0.9 mg/dL (0.70-1.30) 02/07/22 10:20 Est GFR (CKD-EPI 2020) 108.01 (mL/min/1.73m2) 02/07/22 10:20 Calcium 9.5 mg/dL (8.5-10.1) 02/07/22 10:20 Albumin 4.2 g/dL (3.4-5.0) 02/07/22 10:20 Glucose 89 mg/dL (74-106) 02/07/22 10:20 Liver Function Panel: Alanine Aminotransferase (ALT/SGPT) 56 U/L (16-63) 02/07/22 10: 20 Aspartate Amino Transf (AST/SGOT) 29 U/L (15-37) 02/07/22 10:20 Coagulation Panel: No Data to Display Cardiac Panel: No Data to Display Arterial Blood Gas: No Data to Display Venous Blood Gas: No Data to Display Pancreas Panel: Lipase 65 U/L (73-393) 02/07/22 10:20 Thyroid Panel: No Data to Display Infectious Disease: No Data to Display Blood Cultures: No Data to Display Toxicology Panel: No Data to Display Anesthesia Assessment and Plan Anesthesia History Personal History: No History of Anesthesia Complications Family History: No Family History of Anesthesia Complications Exercise Tolerance Exercise Tolerance: Metabolic Equivalents>4 Pertinent Negatives Pertinent Negatives: No Symptoms of GERD (None at present but has been a recent issue), No Major Cardiovascular Symptoms or Complaints, No Major Pulmonary Symptoms or Complaints (Slight TATUM since COVID) and No History of CVA/TIA Cardiac & Pulmonary Exam Cardiac Exam: Normal S1/S2 Heart Sounds Pulmonary Exam: Clear Bilateral Breath Sounds Implantable Cardiac Device Does patient have a Pacemaker or an ICD?: No Airway Exam Known Difficult Airway: No Mallampati Class: 2 Mouth Opening: Normal (> 3cm) Thyromental Distance: Greater than 3 cm Neck Range of Motion: Full ROM Neck Circumference: Normal Teeth Condition: Other (Partial at home. Missing teeth upper and lower) ASA Classification ASA Score: ASA 2 Emergency Case?: No NPO Status NPO Status: NPO Clears >2 hours, Solids >8 hours Anesthesia Plan Resuscitation Status: Full Code Anesthesia Technique: General Anesthesia Airway Planned: Natural Airway Monitors Used: Standard Monitors
[2022-02-25 11:37] VITALS: BMI 36.0
--- NOTE | 2022-02-25 12:07 | BOWEL_PTH ---
PATIENT: Delroy Khan LOC: [facility] U#:[id number] AGE/SX: 46/M ROOM: RE02/25/[address]: Henrik Mohan MD : 1975 BED: DIS: 02/25/2022 SPEC #: [id number] RECD: 02/25/22 13:23 STATUS: [facility] #: [id number] SIM: 02/25/22 12:[address]: Henrik Mohan DEPT: Surgical Specimen RECD BY: Marga Chiu ENTERED: 02/25/22 13:27 SP TYPE: Bowel OTHR DR: Maximus Cabral Tissues: 1 - BIOPSY BOWEL 2 - BIOPSY BOWEL 3 - STOMACH BIOPSY 4 - STOMACH BIOPSY 5 - ESOPHAGUS BIOPSY 6 - ESOPHAGUS BIOPSY 7 - BIOPSY BOWEL 8 - BIOPSY BOWEL 9 - BIOPSY BOWEL 10 - BIOPSY BOWEL 11 - BIOPSY BOWEL 12 - BIOPSY BOWEL 13 - BIOPSY BOWEL Procedures: GROSS AND MICRO LEVEL 4 Comments: [id number]
[2022-02-25 12:50] VITALS: BP 126/101; PULSE 85; RESP 18; TEMP 36.8; O2SAT 94
--- NOTE | 2022-02-25 13:13 | W.ANESPOSTOP ---
Postoperative Evaluation Date, Time and Location Date Performed: 02/25/22 Time Performed: 12:50 Patient Location: Day Surgery Unit Vital Signs Most Recent Imported Vital Signs: Most Recent Vital Signs Temp Pulse Resp BP Pulse Ox 36.8 C 85 18 126/101 H 94 02/25/22 12:50 02/25/22 12:50 02/25/22 12:50 02/25/22 12:50 02/25/22 12:50 Pain Score Most Recent Pain Score: Most Recent Pain Score Pain Level 0 02/25/22 12:50 Assessment Mental Status: Awake (Alert & Oriented to Patient Baseline) Airway and Respiratory Function: Patent airway with normal (patient baseline) respiratory exam Cardiovascular Function: Hemodynamically Stable Hydration Status: Adequately Hydrated Nausea & Vomiting: No Nausea or Vomiting Pain: Pt. Denies Any Pain Peripheral Nerve Block: Patient did not receive a nerve block
[2022-02-25 13:25] VITALS: BP 128/99; PULSE 88; RESP 18; TEMP 36.5; O2SAT 98
== END 2022-02-25 13:53 | disposition home or self-care (01) ==
PROVIDERS: PCP Family Medicine; Visit Provider Surgery
PROC: (CPT 45380; principal; 2022-02-25 12:00)
DX: R10.9 Unspecified abdominal pain (principal); R19.7 Diarrhea, unspecified; K21.9 Gastro-esophageal reflux disease without esophagitis; K22.89 Other specified disease of esophagus; K31.89 Other diseases of stomach and duodenum
CPT/HCPCS: 45380; 43239; 88305; J2405

== ENCOUNTER 2022-03-01 00:24 | Outpatient (CLI) | payer SELFPAY ==
--- NOTE | 2022-03-01 06:45 | DI.NM_ITS ---
Exam(s) NM HEPATOBILIARY CCK GRP EXAM: NM HEPATOBILIARY CCK GRP CLINICAL HISTORY: ruq pain/fat intol/R19.7 diarrhea R15.9 R15.2 r10.11 ruq pain k90.49. COMPARISON: No exams were available for comparison TECHNIQUE: FINDINGS: Hepatobiliary scan was performed with intravenous infusion of 5.0 millicuries of technetium 99 label ed mebrofenin. There was prompt homogeneous hepatic uptake. There is prompt uptake in the gallbladder, bile ducts, and small intestine. Following infusion of 1.5 micrograms of CCK, gallbladder ejection fraction was calculated at 88 perce nt which is in the normal range. IMPRESSION: Normal CCK hepatobiliary scan. DATA REPOSITORY:
[2022-03-01] MEDS: Sincalide 5 MCG VIAL 1.5 MCG IJ (10:19)
== END 2022-03-01 00:44 ==
LOC: DI 00:28
PROVIDERS: PCP Family Medicine; Visit Provider Surgery
DX: K90.49 Malabsorption due to intolerance, not elsewhere classified (principal); R10.11 Right upper quadrant pain; R15.2 Fecal urgency; R15.9 Full incontinence of feces; R19.7 Diarrhea, unspecified
CPT/HCPCS: 78227

== ENCOUNTER 2022-05-21 18:30 | Outpatient (CLI) | payer SELFPAY ==
[2022-05-21 15:36] LABS: Hemoglobin A1C 5.5 % (<5.7)
[2022-05-21 16:09] LABS: ALT 49 U/L (16-63); AST 27 U/L (15-37); Albumin 4.2 g/dL (3.4-5.0); Alkaline Phosphatase 91 U/L (46-116); Anion Gap 8.2 mmol/L (3-11); BUN 8 mg/dL (7-18); Bilirubin, Total 0.3 mg/dL (0.2-1.0); CO2 27.8 mmol/L (21.0-32.0); CREATININE 0.9 mg/dL (0.70-1.30); Calcium 9.7 mg/dL (8.5-10.1); Chloride 103 mmol/L (98-107); Estimated GFR 108.01 (mL/min/1.73m2); Glucose 103 mg/dL (74-106); Potassium 4.2 mmol/L (3.5-5.1); Sodium 139 mmol/L (136-145); Total Protein 7.7 g/dL (6.4-8.2)
[2022-05-21 16:18] LABS: Lithium 0.8 mmol/l (0.6-1.2)
== END 2022-05-21 18:31 | disposition home or self-care (01) ==
LOC: LBO 18:30
PROVIDERS: PCP Family Medicine
DX: F31.81 Bipolar II disorder (principal); Z51.81 Encounter for therapeutic drug level monitoring; Z79.899 Other long term (current) drug therapy
CPT/HCPCS: 36415; 80053; 80178; 83036

== ENCOUNTER 2022-06-03 02:57 | Outpatient (CLI) | payer SELFPAY | END 2022-06-03 02:58 | disposition home or self-care (01) | LOC: LOS 02:58 | PROVIDERS: PCP Family Medicine; Visit Provider Family Medicine | DX: F31.81 Bipolar II disorder (principal); Z51.81 Encounter for therapeutic drug level monitoring; Z79.899 Other long term (current) drug therapy | CPT/HCPCS: 36415; 80178 ==

== ENCOUNTER → 2022-12-17 00:33 | Outpatient (CLI) | payer MEDICAID, SELFPAY ==
--- NOTE | 2022-12-17 | DI.MRI_ITS ---
Exam(s) MR BRAIN WO EXAM: MR BRAIN WO CLINICAL HISTORY: ALTERED MENTAL STATUS TECHNIQUE: Multiplanar multisequence MRI of the brain was performed. COMPARISON: No exams were available for comparison FINDINGS: VENTRICLES AND EXTRA AXIAL SPACES: Normal in size and morphology for the patient's age. MIDLINE SHIFT: None. CEREBRAL PARENCHYMA: No focus of restricted diffusion to suggest acute infarct. No space-occupying le nik identified. Mild atrophy consistent with the patient's age. Mild scattered foci of high signa l in the white matter consistent with sequela of chronic microvascular disease. HEMORRHAGE: None. BRAINSTEM/CEREBELLUM: Normal. VISUALIZED PARANASAL SINUSES/MASTOIDS:Mucosal thickening floor left maxillary sinus. Vasculature: Normal flow void. PITUITARY GLAND: Unremarkable. ORBITS: Unremarkable. IMPRESSION: Unremarkable MRI of the brain. DATA REPOSITORY:
== END ==
PROVIDERS: PCP Family Medicine; Visit Provider Family Medicine
DX: R41.89 Other symptoms and signs involving cognitive functions and awareness (principal)
CPT/HCPCS: 70551

== ENCOUNTER 2023-01-10 02:42 | Outpatient (CLI) | payer MEDICAID, SELFPAY ==
[2023-01-10 09:54] LABS: Lithium 0.6 mmol/l (0.6-1.2)
== END 2023-01-10 02:43 | disposition home or self-care (01) ==
LOC: LBO 02:42
PROVIDERS: PCP Family Medicine; Visit Provider Nurse Practitioner Psychiatric/Mental Health
DX: F31.9 Bipolar disorder, unspecified (principal)
CPT/HCPCS: 36415; 80178

== ENCOUNTER 2023-01-28 22:02 | Outpatient (CLI) | payer MEDICAID, SELFPAY ==
[2023-01-28 13:16] LABS: Hemoglobin A1C 5.5 % (<5.7)
== END 2023-01-28 22:03 | disposition home or self-care (01) ==
LOC: LBO 22:02
PROVIDERS: PCP Family Medicine; Visit Provider Optometrist
DX: H57.89 Other specified disorders of eye and adnexa (principal); Z13.1 Encounter for screening for diabetes mellitus
CPT/HCPCS: 36415; 83036

== ENCOUNTER 2023-03-12 15:59 | Emergency (ER) | payer MEDICAID, SELFPAY ==
[2023-03-12 16:04] VITALS: BP 150/108; PULSE 72; RESP 20; TEMP 36.4; O2SAT 98
--- NOTE | 2023-03-12 16:15 | RT.EKG_ITS ---
APPROVED REPORT Exam: Resting ECG Reason for Exam: lithium toxicity Patient Location: E HR:70 bpm ECG Measurements Heart Rate 70 AXIS NC 205 P 55 QRSd 114 QRS -15 QT 415 T 17 QTc 449 Conclusion Sinus rhythm...normal P axis, V-rate 60- 99 Borderline prolonged NC interval...NC >202, V-rate 50- 90 Normal Thompson I have reviewed and interpreted ECG and agree with software generated interpretation.
--- NOTE | 2023-03-12 16:22 | ED.GENADUL_ITS ---
Discharge Plan Disposition Patient Disposition: Home Condition: Stable Discharge Details Clinical Impression: Anhedonia Primary Care Provider: Maximus Cabral ED Provider: Markie Ratliff Home Meds and New Rx's Prescriptions: Continued quetiapine [Seroquel] 400 mg tablet 100 mg PO DAILY PRN lithium carbonate 600 mg capsule 1,050 mg PO ONCE clonazepam [Klonopin] 1 mg tablet 2 mg PO BID venlafaxine 100 mg tablet 75 mg PO DAILY diphenoxylate-atropine [Lomotil] 2.5-0.025 mg tablet 1 tab PO QID PRN (Reason: diarrhea) Qty: 30 3RF Hold Instructions: Pt Stopped/Never Started pantoprazole [Protonix] 40 mg tablet,delayed release (DR/EC) 40 mg PO DAILY Qty: 30 0RF Hold Instructions: Pt Stopped/Never Started dicyclomine 20 mg tablet 1 tab PO QID Hold Instructions: Pt Stopped/Never Started Patient Comments: TAKE ONE TABLET BY MOUTH FOUR TIMES A DAY NEEDED FOR PAIN lurasidone [Latuda] 80 mg tablet 80 mg PO ONCE Rx Instructions: must administer with food (at least 350 calories) Discharge Instructions Instructions: [place] (By mouth), Depression (ED) Additional Instructions: You were seen in the emergency department for your lethargy and reporting some coordination difficulty, your lithium level is at the lower limit of therapeutic dosing despite your increased dose. Do not find any evidence of lithium toxicity on typical laboratory findings for this condition I did consult with [facility] Poison control and we are reassured. It may be part of your schizoaffective disorder with depression causing these prolonged periods of anhedonia or not wanting to participate in events and taking frequent naps. There was no evidence of any infarction to your brain on CT head without contrast which with the length of onset of symptoms would likely show any kind of stroke. Please follow-up with your primary care provider, return to the ED for any increasing fasciculations of your muscles or fevers, nausea, vomiting, or any other emergent concerns. Referrals: Maximus Cabral [Primary Care Provider] - Medical Decision Making This dictation utilizes [id number] dictation software and may contain unedited grammatical errors. 47 y/o M presents to ED today with a chief complaint of possible lithium toxicity, states he had a recent dose increase for his severe bipolar disorder, has had lithium toxicity before. Onset and characteristics include days onset of lethargy, shaking, brain fog, recent severe manic episode- states he usually becomes very depressed after these episodes. Patients' medical history: bipolar disorder, schizoaffective disorder. Pertinent exam findings / vital signs include tongue fasciculations, some minor tremor, no focal neurodeficits, benign cardiopulmonary status, patient's affect is improving throughout visit when he realizes his lithium level was within normal limits. Differential / pathologies of concern include lithium toxicity, depression, stroke well outside window, medication reaction. Diagnostic studies of: -EKG, ammonia, CK, CMP, lactate, lithium level, magnesium, TSH, troponin, complete blood count, venous blood gas, UDS, urinalysis, CT head without, COVID- 19 PCR, discussed tick panel and he denies any exposures to this was held. -EKG no ST depressions -Ammonia WNL -CK WNL -CMP WNL -CBC WNL -Lactate neg -Mg++ neg -TSH WNL -Covid-19 neg -[place] level lower therapeutic range at 0.6, would be expected to be 1.2+ -CT head shows no established area of infarct Interventions of: -1L IVF. repeat lithium level q4hrs per [facility] Poison [facility] - repeat value 0.5 ED Course/Assessment/Plan: 47-year-old male was seen in the emergency department for stating that he feels he is having lithium toxicity, he was found to not be in lithium toxicity, consulted with [facility] poison center who recommends a repeat level, they suggest this may be psychiatric symptoms presenting if this is not his lithium. All other laboratory workup is quite benign without any focal neurological findings and normal head CT without contrast which given the onset would be fairly reliable at this time patient is otherwise young and healthy. The patient was reassured that his lithium level was stable and not increasing, he wished to be discharged, he will follow-up with his primary mental health care provider with strict return to ED criteria for any focal neurological com plaints or new fevers, palpitations, any concerns for further medication reactions Findings not consistent with lithium toxicity, serotonin syndrome, ACS, CVA, viral syndrome, rhabdo, encephalopathy. Disposition of Anhedonia. Patient verbalized understanding of the plan and return to ED criteria and engaged in shared decision making. Medical Records Medical records reviewed: Yes I reviewed the patient's medical records. Imaging Data Radiologic Study: Imaging: CT Scan Radiologist's impression: EXAM: CT HEAD WO CLINICAL HISTORY: speech difficulty for days. TECHNIQUE: Imaging Protocol: Axial computed tomography images with coronal and sagittal reformatted images were created and reviewed COMPARISON: No exams were available for comparison FINDINGS: Artifact from patient's ear piercing. Ventricles and Extra axial spaces: Normal in size and morphology for the patient's age. Hemorrhage: None. Cerebral parenchyma: No evidence of acute infarct or mass. Midline shift: None. Brainstem/Cerebellum: Normal. Calvarium: Normal. Visualized Paranasal sinuses/Mastoids: Clear. Soft Tissues: Unremarkable. IMPRESSION: No acute intracranial process. Lab Data Lab results reviewed: Yes I reviewed the patient's lab results. Labs: Laboratory Tests Range/Units 03/12/23 03/12/23 03/12/23 16:53 17:20 17:53 WBC (4.4-10.8) 10^3/uL 6.98 RBC (4.36-5.78) 10^6/uL 4.72 Hgb (13.5-17.5) g/dL 14.0 Hct (40.0-50.0) % 42.2 MCV (80-95) fL 89 MCH (27.0-33.0) pg 29.7 MCHC (32.0-36.0) % 33.2 RDW (11.8-14.1) % 13.1 Plt Count (130-400) 10^3/uL 216 MPV (8.0-11.0) fL 10.8 Immature Gran % 0.4 Neutrophils % 61.8 Lymphocytes % 28.2 Monocytes % 6.9 Eosinophils % 2.1 Basophils % 0.6 Nucleated RBC % (0.0-0.3) % 0.0 Absolute Neutrophils (1.2-6.7) 10^3/uL 4.31 Absolute Lymphocytes (1.2-3.4) 10^3/uL 1.97 Absolute Monocytes (0.1-0.8) 10^3/uL 0.48 Absolute Eosinophils (0.0-0.7) 10^3/uL 0.15 Absolute Basophils (0.0-0.2) 10^3/uL 0.04 VBG pH (7.31-7.41) 7.39 VBG pCO2 (41-51) mmHg 48 VBG pO2 mmHg 33 VBG HCO3 (23-28) mmol/L 29 H VBG Total CO2 (24-29) mmol/L 26 VBG O2 Saturation % 65 VBG Base Excess (-2-3) mmol/L 4 H VBG Lactate (0.6-1.4) mmol/L 1.1 Sodium (136-145) mmol/L 141 Potassium (3.5-5.1) mmol/L 4.2 Chloride (98-107) mmol/L 104 Carbon Dioxide (21.0-32.0) mmol/L 27.8 Anion Gap (3-11) mmol/L 9.2 BUN (7-18) mg/dL 7 Creatinine (0.70-1.30) mg/dL 1.0 Est GFR (CKD-EPI 2020) (mL/min/1.73m2) 94.59 Glucose (74-106) mg/dL 101 Calcium (8.5-10.1) mg/dL 9.5 Magnesium (1.8-2.4) mg/dL 2.1 Total Bilirubin (0.2-1.0) mg/dL 0.4 AST (15-37) U/L 19 ALT (16-63) U/L 38 Alkaline Phosphatase (46-116) U/L 87 Ammonia (11-32) umol/L < 10 L Creatine Kinase (39-308) U/L 43 Troponin I (<or=60) ng/L < 50 Total Protein (6.4-8.2) g/dL 7.9 Albumin (3.4-5.0) g/dL 4.2 TSH (0.36-3.74) uIU/mL 1.11 Urine Color (Yellow) Yellow Urine Clarity (Clear) Clear Urine pH (5-8) 7.0 Ur Specific [place] (1.005-1.025) 1.010 Urine Protein (Negative) mg/dL Negative Urine Ketones (Negative) mg/dL Negative Urine Blood (Negative) Negative Urine Nitrite (Negative) Negative Urine Bilirubin (Negative) Negative Urine Urobilinogen (Up to 0.2) mg/dL 0.2 Ur Leukocyte Esterase (Negative) Negative Urine Glucose (Negative) mg/dL Negative Urine Opiates Screen (Negative) Negative Urine Methadone Screen (Negative) Negative Ur Barbiturates Screen (Negative) Negative Ur Tricyclics Screen (Negative) Negative Ur Amphetamines Screen (Negative) Negative U Benzodiazepines Scrn (Negative) Negative [place] (0.6-1.2) mmol/l 0.6 Urine Cocaine Screen (Negative) Negative Ur THC Screen (Negative) Negative COVID-19 Source Nasopharynx SARS-CoV-2 (PCR) (Negative) Negative Range/Units 03/12/23 20:54 WBC (4.4-10.8) 10^3/uL RBC (4.36-5.78) 10^6/uL Hgb (13.5-17.5) g/dL Hct (40.0-50.0) % MCV (80-95) fL MCH (27.0-33.0) pg MCHC (32.0-36.0) % RDW (11.8-14.1) % Plt Count (130-400) 10^3/uL MPV (8.0-11.0) fL Immature Gran % Neutrophils % Lymphocytes % Monocytes % Eosinophils % Basophils % Nucleated RBC % (0.0-0.3) % Absolute Neutrophils (1.2-6.7) 10^3/uL Absolute Lymphocytes (1.2-3.4) 10^3/uL Absolute Monocytes (0.1-0.8) 10^3/uL Absolute Eosinophils (0.0-0.7) 10^3/uL Absolute Basophils (0.0-0.2) 10^3/uL VBG pH (7.31-7.41) VBG pCO2 (41-51) mmHg VBG pO2 mmHg VBG HCO3 (23-28) mmol/L VBG Total CO2 (24-29) mmol/L VBG O2 Saturation % VBG Base Excess (-2-3) mmol/L VBG Lactate (0.6-1.4) mmol/L Sodium (136-145) mmol/L Potassium (3.5-5.1) mmol/L Chloride (98-107) mmol/L Carbon Dioxide (21.0-32.0) mmol/L Anion Gap (3-11) mmol/L BUN (7-18) mg/dL Creatinine (0.70-1.30) mg/dL Est GFR (CKD-EPI 2020) (mL/min/1.73m2) Glucose (74-106) mg/dL Calcium (8.5-10.1) mg/dL Magnesium (1.8-2.4) mg/dL Total Bilirubin (0.2-1.0) mg/dL AST (15-37) U/L ALT (16-63) U/L Alkaline Phosphatase (46-116) U/L Ammonia (11-32) umol/L Creatine Kinase (39-308) U/L Troponin I (<or=60) ng/L Total Protein (6.4-8.2) g/dL Albumin (3.4-5.0) g/dL TSH (0.36-3.74) uIU/mL Urine Color (Yellow) Urine Clarity (Clear) Urine pH (5-8) Ur Specific [place] (1.005-1.025) Urine Protein (Negative) mg/dL Urine Ketones (Negative) mg/dL Urine Blood (Negative) Urine Nitrite (Negative) Urine Bilirubin (Negative) Urine Urobilinogen (Up to 0.2) mg/dL Ur Leukocyte Esterase (Negative) Urine Glucose (Negative) mg/dL Urine Opiates Screen (Negative) Urine Methadone Screen (Negative) Ur Barbiturates Screen (Negative) Ur Tricyclics Screen (Negative) Ur Amphetamines Screen (Negative) U Benzodiazepines Scrn (Negative) [place] (0.6-1.2) mmol/l 0.5 L Urine Cocaine Screen (Negative) Ur THC Screen (Negative) COVID-19 Source SARS-CoV-2 (PCR) (Negative) HPI General Date/Time Provider Initiated Documentation: 03/12/23 16:04 . HPI Narrative: 47 year-old male presents to ED today by POV/ambulating with a chief complaint of feels he is in lithium toxicity with recent increase in his dose from 900mg to 1050mg QD, history of lithium toxicity requiring hospitalization with onset noted over the past few days. Notes increased shaking, anhedonia, frequent naps, brain fog/confusion. Quality described as just feels off, doesn't want to get so bad that he needs to be hospitalized again- states he recently finished a manic episode for his severe bipolar disorder and he usually becomes very depressed after these episodes, no radiation to nausea/vomiting, rashes, bruising, visual changes, vertigo. Severity is described as 9/10. Palliating factors include nothing specific attempted. Provoking factors include nothing specific. Patient not anticoagulated. Related Data Home Medications Medication Instructions Recorded Confirmed clonazepam 1 mg tablet (Klonopin) 2 mg PO BID 11/27/21 03/12/23 lithium carbonate 600 mg capsule 1,050 mg PO ONCE 11/27/21 03/12/23 quetiapine 400 mg tablet (Seroquel) 100 mg PO DAILY PRN 11/27/21 03/12/23 venlafaxine 100 mg tablet 75 mg PO DAILY 11/27/21 03/12/23 diphenoxylate-atropine 2.5 1 tab PO QID PRN diarrhea #30 tabs 02/19/22 03/12/23 mg-0.025 mg tablet (Lomotil) pantoprazole 40 mg tablet,delayed 40 mg PO DAILY #30 tabs 02/19/22 03/12/23 release (Protonix) dicyclomine 20 mg tablet 1 tab PO QID 02/25/22 03/12/23 lurasidone 80 mg tablet (Latuda) 80 mg PO ONCE 03/12/23 03/12/23 Previous Rx's Medication Instructions Recorded diphenoxylate-atropine 2.5 1 tab PO QID PRN diarrhea #30 tabs 02/19/22 mg-0.025 mg tablet (Lomotil) pantoprazole 40 mg tablet,delayed 40 mg PO DAILY #30 tabs 02/19/22 release (Protonix) Allergies Allergy/AdvReac Type Severity Reaction Status Date / Time No Known Allergies Allergy Verified 03/12/23 16:03 General Stated Complaint: GenMedical MONET: 3 Review of Systems All systems reviewed & are unremarkable except as noted in HPI and below PFSH All Active Problems (Updated 03/12/23 @ 21:40 by RINA Kilgore) Anhedonia (Acute) Diarrhea (Acute) Abdominal pain (Acute) Chronic GERD (Acute) Postprandial RUQ pain (Acute) Schizo-affective type schizophrenia, chronic state (Acute) Family history of ulcerative colitis (Acute) Dysphagia (Acute) Bloody diarrhea (Acute) Incontinence of feces with fecal urgency (Acute) Fatty food intolerance (Acute) Surgical History History of ear surgery ears pinned back. Social History Smoking/Tobacco Use Status: Current every day Tobacco Type: e-cigarettes Smoking risk assessment performed?: Yes Alcohol Intake: former Drug use: Never Substance use type: does not use Do you feel safe at home: Yes Do you feel safe in your relationship?: Yes Exam Narrative Exam Narrative: GENERAL APPEARANCE: Well-nourished, non-toxic, awake and alert, atraumatic, no acute distress. SKIN: Warm, pink, dry, intact, without rashes/lesions/ulcerations. HEAD: Normocephalic, atraumatic, normal hair distribution for gender/age. EYES: Pupils PERRLA, EOMs intact without nystagmus, normal conjunctiva, no exudates on lids/lashes. ENT: Nares patent, no circumoral cyanosis, no facial swelling NECK: Supple, trachea midline, painless cervical ROM. LUNGS/CHEST: Lungs CTA bilaterally - no rhonchi/rales/wheezes diffusely, non- labored respirations, normal A/P diameter, symmetrical expansion, no chest wall deformity HEART (CV/PV): Regular rate and rhythm without murmur, no peripheral edema, no JVD. ABDOMEN: Soft, non-distended, no guarding. MSK: Normal ROM, no swelling/deformity to bilateral UEs or LEs, moving all extremities without weakness, no cyanosis, spine midline without tenderness, normal curvature. NEURO: Mental Status AAOx4 - alert to person, place, time, events No facial droop, no forehead involvement, some tongue fasiculations, essential tremor without dysmetria with [id number]. Motor: No focal weakness - strength 5/5 in bilateral UEs and LEs, proximal and distal, symmetric. Sensory: sensation intact to light touch globally. Gait normal: patient ambulated without ataxia into ED room. PSYCH: dysthymic, cooperative, flat affect, appropriate speech Course 03/12/23 16:29 ED EKG Stat 03/12/23 16:30 Normal Saline [Saline 1000ml Bag] 1,000 ml IV INFUSION 03/12/23 16:31 EKG Nursing/RT Intervention .STAT 03/12/23 16:53 Ammonia Stat CK [Creatine Kinase] Stat Comprehensive Metabolic Panel Stat Lactate Stat [place] Stat Magnesium Stat TSH (W/Ref FT4) Stat Troponin [Cardiac Troponin I] Stat Complete Blood Count w/Diff [HEMO] Stat Venous Blood Gas [ABG] Stat 03/12/23 17:20 Urine Drug Screen ([facility]) Stat Urinalysis [URIN] Stat 03/12/23 17:40 CT head wo [CT] Stat 03/12/23 17:53 COVID-19 PCR ([facility]) [SERO] Stat Vital Signs Vital signs: Vital Signs Temperature 36.4 C L 03/12/23 16:04 Pulse 72 03/12/23 16:04 Respiratory Rate 20 03/12/23 16:04 Blood Pressure 150/108 H 03/12/23 16:04 Pulse Oximetry 98 03/12/23 16:04 Temperature 36.4 C L 03/12/23 16:04 Temperature Source Oral 03/12/23 16:04 Pulse 72 03/12/23 16:04 Respiratory Rate 20 03/12/23 16:04 Respiratory Effort Normal 03/12/23 16:08 Respiratory Depth Normal 03/12/23 16:08 Blood Pressure 150/108 H 03/12/23 16:04 Blood Pressure Position Sitting 03/12/23 16:04 Pulse Oximetry 98 03/12/23 16:04 Oxygen Delivery Method Room Air 03/12/23 16:04 Oxygen Flow Rate 0 03/12/23 16:04
[2023-03-12 16:59] LABS: BE (Venous) 4 mmol/L (-2-3); HCO3 (Venous) 29 mmol/L (23-28); O2 Sat (Venous) 65 %; TCO2 (Venous) 26 mmol/L (24-29); pCO2 (Venous) 48 mmHg (41-51); pH (Venous) 7.39 (7.31-7.41); pO2 (Venous) 33 mmHg
[2023-03-12 17:02] LABS: Lactate 1.1 mmol/L (0.6-1.4)
[2023-03-12 17:04] LABS: Abs Immature Grans 0.03 10^3/uL (0.0-0.06); Absolute Basophil Count 0.04 10^3/uL (0.0-0.2); Absolute Eosinophil Count 0.15 10^3/uL (0.0-0.7); Absolute Lymphocyte Count 1.97 10^3/uL (1.2-3.4); Absolute Monocyte Count 0.48 10^3/uL (0.1-0.8); Absolute Neutrophil Count 4.31 10^3/uL (1.2-6.7); Basophils % 0.6; Eosinophils % 2.1; HCT 42.2 % (40.0-50.0); Immature Grans % 0.4; Lymphocytes % 28.2; MCH 29.7 pg (27.0-33.0); MCHC 33.2 % (32.0-36.0); MCV 89 fL (80-95); MPV 10.8 fL (8.0-11.0); Monocytes % 6.9; Neutrophils % 61.8; Platelet Count 216 10^3/uL (130-400); RBC 4.72 10^6/uL (4.36-5.78); RDW 13.1 % (11.8-14.1); RDW-SD 42.8 fL; WBC 6.98 10^3/uL (4.4-10.8)
[2023-03-12 17:19] LABS: ALT 38 U/L (16-63); AST 19 U/L (15-37); Albumin 4.2 g/dL (3.4-5.0); Alkaline Phosphatase 87 U/L (46-116); Anion Gap 9.2 mmol/L (3-11); BUN 7 mg/dL (7-18); Bilirubin, Total 0.4 mg/dL (0.2-1.0); CO2 27.8 mmol/L (21.0-32.0); Calcium 9.5 mg/dL (8.5-10.1); Chloride 104 mmol/L (98-107); Estimated GFR 94.59 (mL/min/1.73m2); Glucose 101 mg/dL (74-106); Potassium 4.2 mmol/L (3.5-5.1); Sodium 141 mmol/L (136-145); Total Protein 7.9 g/dL (6.4-8.2)
[2023-03-12 17:21] LABS: Troponin I < 50 ng/L (<or=60)
[2023-03-12 17:27] LABS: Bilirubin Negative (Negative); Blood Negative (Negative); Clarity Clear (Clear); Glucose Negative (Negative); Ketones Negative (Negative); Leukocyte Esterase Negative (Negative); Nitrite Negative (Negative); Urobilinogen 0.2 mg/dL (Up to 0.2)
[2023-03-12 17:27] LABS: Creatine Kinase 43 U/L (39-308); Magnesium 2.1 mg/dL (1.8-2.4); TSH (W/Ref FT4) 1.11 uIU/mL (0.36-3.74)
[2023-03-12 17:28] LABS: Ammonia < 10 umol/L (11-32)
--- NOTE | 2023-03-12 17:30 | DI.CT_ITS ---
Exam(s) CT HEAD WO EXAM: CT HEAD WO CLINICAL HISTORY: speech difficulty for days. TECHNIQUE: Imaging Protocol: Axial computed tomography images with coronal and sagittal reformatted images were created and reviewed COMPARISON: No exams were available for comparison FINDINGS: Artifact from patient's ear piercing. Ventricles and Extra axial spaces: Normal in size and morphology for the patient's age. Hemorrhage: None. Cerebral parenchyma: No evidence of acute infarct or mass. Midline shift: None. Brainstem/Cerebellum: Normal. Calvarium: Normal. Visualized Paranasal sinuses/Mastoids: Clear. Soft Tissues: Unremarkable. IMPRESSION: No acute intracranial process. RADIATION DOSE DELIVERED: Total DLP DATA REPOSITORY: All CT scans at this facility are submitted to the National Radiology Data Registry (NRDR) Dose Index Registry (DIR) with the [employer] (A[employer]). RADIATION OPTIMIZATION: All CT scans at this facility use at least one of these dose optimization te chniques: automated exposure control; mA and/or kV adjustment per patient size (includes targeted exa ms where dose is matched to clinical indication); or iterative reconstruction.
[2023-03-12 17:34] LABS: Lithium 0.6 mmol/l (0.6-1.2)
[2023-03-12 17:38] LABS: *AMPHETAMINES SCREEN URINE Negative (Negative); *BARBITURATES SCREEN URINE Negative (Negative); *BENZODIAZEPINES SCREEN URINE Negative (Negative); Cannabinoids THC Negative (Negative); Cocaine Screen,Urine Negative (Negative); METHADONE URINE SCREEN Negative (Negative); OPIATES URINE SCREEN Negative (Negative)
[2023-03-12 17:40] LABS: Tricyclic Antidepressants Negative (Negative)
[2023-03-12 17:58] LABS: Source Nasopharynx
[2023-03-12] MEDS: Normal Saline 1,000 ML 300 ML IV (18:09)
[2023-03-12 18:29] LABS: COVID-19 PCR Negative (Negative)
[2023-03-12 21:35] LABS: Lithium 0.5 mmol/l (0.6-1.2)
[2023-03-12 21:47] VITALS: PULSE 68; RESP 16; TEMP 36.4; O2SAT 99
== END 2023-03-12 21:55 | disposition home or self-care (01) ==
PROVIDERS: Emergency Provider Physician Assistant; PCP Family Medicine
DX: R41.0 Disorientation, unspecified (principal); F25.9 Schizoaffective disorder, unspecified; R45.84 Anhedonia; F32.A Depression, unspecified
CPT/HCPCS: 80053; 80307; 82550; 82805; 87635; 93005; 99284; 70450; 80178; 81003; 82140; 83605; 83735; 84443; 84484; 85025; 93010; 99283

== ENCOUNTER → 2023-04-28 01:06 | Outpatient (CLI) | payer MEDICAID, SELFPAY ==
--- NOTE | 2023-04-28 14:30 | DI.RAD_ITS ---
Exam(s) XR HIP PELVIS ADULT BL EXAM: XR HIP PELVIS ADULT BL CLINICAL HISTORY: LEFT HIP PAIN SINCE ACUTE ONSET 2014-[address]ACE. TECHNIQUE: 2D digital imaging was performed. Five views. COMPARISON: No exams were available for comparison FINDINGS: BONES: No acute fracture is present. No bony destructive lesion is seen. JOINTS: No dislocation present. SI joints and pubic symphysis are unremarkable. [id number]-[id number] narrowing of the superior hip joint spaces, left greater than right. Periarticular spurring, left gr eater than right. SOFT TISSUE: Normal. IMPRESSION: Moderate degenerative changes of the left hip. Mild degenerative changes of the right hip. DATA REPOSITORY: RADIATION DOSE DELIVERED:
== END ==
PROVIDERS: PCP Family Medicine; Visit Provider Family Medicine
DX: M16.12 Unilateral primary osteoarthritis, left hip (principal)
CPT/HCPCS: 73521

== ENCOUNTER 2023-06-16 13:04 | Outpatient (REF) | payer MEDICAID, SELFPAY | END 2023-06-16 13:05 | disposition home or self-care (01) | LOC: LBN 13:04 | PROVIDERS: PCP Family Medicine; Visit Provider Physician Assistant | DX: J02.9 Acute pharyngitis, unspecified (principal) | CPT/HCPCS: 87070 ==

== ENCOUNTER 2023-08-29 15:05 | Outpatient (REF) | payer MEDICAID, SELFPAY ==
[2023-08-29 17:05] LABS: Bacteria Rare HPF (Negative); C & S Indicated? C&S Done As Ordered; Casts Negative LPF (Negative); Crystals Negative HPF (Negative); Epithelial Cells Few HPF (Negative); Mucus Negative (Negative); Other Cells Few Transitional (Negative); RBC Negative HPF (0-2)
== END 2023-08-29 15:06 | disposition home or self-care (01) ==
LOC: LBN 15:05
PROVIDERS: PCP Family Medicine; Visit Provider Physician Assistant Medical
DX: Z00.129 Encounter for routine child health examination without abnormal findings (principal)
CPT/HCPCS: 81015; 87086